=== PATIENT | female | born 1945 | race Caucasian/White ===

== ENCOUNTER 2018-02-25 21:22 | Observation (INO) | payer MEDICARE, SELFPAY ==
[2018-02-25] VITALS (7 sets, daily range): BP systolic 100–147; BP diastolic 54–102; PULSE 88–120; RESP 16–20; TEMP 36.4; O2SAT 96–98; BMI 41.1
--- NOTE | 2018-02-25 21:45 | RAD_ITS ---
XR Chest 1 View INDICATION: palpitations, SOB COMPARISON: November 04, 2017 TECHNIQUE: Frontal view of the chest FINDINGS: Mild bibasilar atelectasis are seen, the lungs appear otherwise clear. Heart size is mildly enlarged, stable. Pulmonary vascularity is within normal limits. Osseous structures demonstrate degenerative changes at the shoulders and thoracic spine. RAD/Chest 1 View (Portable) IMPRESSION: Stable mild cardiomegaly. Bibasilar subsegmental atelectasis. at 2215 Reported and signed by: Nehal Thomas MD Electronically Signed: Nehal Thomas MD at 22:13 EDT Tel , Service support ,
--- NOTE | 2018-02-25 21:45 | EKG12_ITS ---
Test Reason : SOB Blood Pressure : / mmHG Vent. Rate : 139 BPM Atrial Rate : 125 BPM P-R Int : 000 ms QRS Dur : 092 ms QT Int : 290 ms P-R-T Axes : 000 -10 247 degrees QTc Int : 441 ms Atrial fibrillation Nonspecific ST and T wave abnormality Abnormal ECG Confirmed by CEDRIC MORELAND, HARVINDER ([id number]), newspaper managing editor BRIAN COOK ([id number]) on 02/28/2018 2:31:30 PM Referred By: ESTHER Confirmed By:HARVINDER STEELE MD
--- NOTE | 2018-02-25 21:46 | ED.VISSUMM ---
- ER Visit Summary Date of Service: 02/25/18 Chief Complaint: Palpitations History of Present Illness: The patient is a 72 F palpitations starting 2 days ago. States has chronic shortness of breath, however symptoms did worsen with this. No lightheaded symptoms. No cough. No chest pains. Patient taken off hydrochlorothiazide 6 days ago by PCP due to leg cramping. Continued on her lisinopril. She is on thyroid medications. no further complaints. Physical Examination: General: Alert and oriented ?3, no acute distress HEENT: Normocephalic, atraumatic. Moist mucosa membranes Neck: supple, nontender. Cardiovascular: Irregular tachycardic rhythm, no murmurs Respiratory: Normal breath sounds, symmetric, no distress Abdomen: Soft, nontender, nondistended Extremities: Nontender, no edema, pulses intact ?4 Neuro: no focal neurological deficits. Test Results: EKG: Atrial fibrillation rate of 139, no ST changes. T-wave inversion in leads III. Potassium 4.2. Hemoglobin 16. Troponin less than 0.02. Chest x-ray negative. Emergency Department Course and Treatment: Reevaluation patient heart rate would go as high as 160s. A. fib with RVR on the monitor. EKG confirms this. Patient given 10 mg IV Cardizem, heart rate did go down the 80s and 90s. Labs and troponin negative. Chest x-ray negative. She is dose with Cardizem 60 mg p.o. Monitor blood pressure was stable. Reevaluation heart rate will be 90s-110s. Chads 2 score is a 2. Discussed with patient possible recommendations of anticoagulations. States her significant other had bad side effects with bleeding secondary to Xarelto. She does not follow cardiology. Currently hospitalist is on page for discussion for admission for workup. Treatment Plan: [] Disposition: Admission Impression: 1. Atrial fibrillation with RVR This note was generated with Samplesaint dictation software. It may contain incorrect words, spelling, and punctuation that were not noted in review of the chart prior to signing ED Disposition - Plan for ED Patient: Disposition: Acute Care Hospital [facility] Chief Complaint: Shortness of Breath Diagnosis: Atrial fibrillation with RVR Referrals: Carlos Manuel Artis III, MD [Primary Care Provider] -
[2018-02-25] MEDS: dilTIAZem 25 MG/5 ML Vial 10 MG IV BOLUS (21:48)
[2018-02-25] MEDS: 0.9% Normal Saline 1,000 ML 150 ML IV (21:51)
[2018-02-25 22:01] LABS: Absolute Neutrophil Count 4.7 X10^3/uL (2.0-7.7); Basophil# 0.01 X10^3/uL; Basophil% 0.1 % (0-1); Eosinophil# 0.07 X10^3/uL; Hematocrit 48.2 % (37-47); Hemoglobin 16.1 g/dl (12.0-15.0); Lymphocyte % 21.7 % (19-41); Mean Corp Hgb Conc 33.4 g/gl (32-36); Mean Corpuscular Volume 92.7 fL (81-99); Mean Platelet Vol. 10.9 fl (6.2-12.0); Monocyte# 0.62 X10^3/uL; Neutrophil # 4.71 X10^3/uL (2.7-7.7); Neutrophil % 68.2 % (47-70); Platelet Count 252 K/mm3 (150-450); RBC Distribution Width CV 13.6 % (11.6-14.6); RBC Distribution Width SD 44.7 fl (35.1-43.9); White Blood Count 6.9 K/mm3 (4.4-11.0)
[2018-02-25 22:02] LABS: POSITIVE COUNT NO; POSITIVE DIFFERENTIAL NO; POSITIVE MORPHOLOGY NO
[2018-02-25 22:18] LABS: Anion Gap 7 (5-15); BUN 22 mg/dL (7-18); BUN/Creat Ratio 25.6 RATIO (10-20); Calcium,Total 11.5 mg/dL (8.5-10.1); Chloride 112 mmol/L (98-107); Creatinine, Serum 0.86 mg/dL (0.55-1.02); EST Glomerular Filtration Rate 69 mL/min (>60); Est Glom Filt Rate - Afr Amer 83 mL/min (>60); Estimated Creatinine Clearance 51.64 ml/min; Glucose 167 mg/dL (74-106); Potassium 4.2 mmol/L (3.5-5.1); Sodium Level 145 mmol/L (136-145)
[2018-02-25] MEDS: dilTIAZem 60 MG CAP.SR.12H PO (22:47)
--- NOTE | 2018-02-25 23:25 | PCM.HP.STD ---
Problem List (1) Atrial fibrillation with RVR Status: Acute (2) Hypothyroidism Status: Chronic Qualifiers: Hypothyroidism type: unspecified Qualified Code(s): E03.9 - Hypothyroidism, unspecified (3) Diabetes mellitus type II, controlled Status: Chronic Qualifiers: Diabetes mellitus shoe folder insulin use: without usp use Diabetes mellitus complication status: without complication Qualified Code(s): E11.9 - Type 2 diabetes mellitus without complications (4) Morbid obesity with BMI of 40.0-44.9, adult Status: Chronic (5) HTN (hypertension) Status: Chronic Qualifiers: Hypertension type: essential hypertension Qualified Code(s): I10 - Essential (primary) hypertension History of Present Illness Date of Admission: 02/25/18 Chief Complaint: Palpitations, Dyspnea The patient is a 72 y/o F w/ PMHx: Morbid Obesity, Diabetes mellitus type II Diet Controlled, Hypothyroidism, HTN who presents to the [facility] ED on 02/25/18 with onset of palpitations and heart racing with worsened dyspnea sensation ?2 days. Per history patient was recently taken off her hydrochlorothiazide approximately 1 week prior per her PCP secondary to ongoing leg cramping but maintain on lisinopril for newly diagnosed hypertension this past October. Patient does admit to similar sensations in the past but this was never evaluated and there is a possibility that she has been in paroxysmal atrial fibrillation prior. In the ED work-up included T 97.6, heart rate 106-120, BP 117/54, respiratory rate 20, 96% on room air, unremarkable CBC, BMP with glucose 167, calcium 11.5, BUN/creatinine 22/0.86, troponin less than 0.02, chest x-ray with no acute findings, EKG with atrial fibrillation with RVR. In the emergency room patient was administered normal saline, Cardizem 10 mg IV bolus ?1 and oral 60 mg p.o. ?1. Past Medical History Past Medical History (Chronic Problems): Chronic Problems HTN (hypertension) (Chronic) Hypothyroidism (Chronic) Diabetes mellitus type II, controlled (Chronic) Morbid obesity with BMI of 40.0-44.9, adult (Chronic) Allergies Penicillins Allergy (Verified 02/25/18 21:26) Unknown inhalers Adverse Reaction (Uncoded 02/25/18 21:26) Unknown knee injections Adverse Reaction (Uncoded 02/25/18 21:26) Unknown Home Medications: Ambulatory Orders Medication Instructions Recorded Cholecalciferol (Vitamin D3) 1,000 unit PO QHS 11/04/17 [Vitamin D3] Cinnamon Bark [Cinnamon] 500 mg PO DAILY 11/04/17 Levothyroxine [Synthroid] 125 mcg PO DAILY 11/04/17 Red Yeast Rice 600 mg PO QHS 11/04/17 Lisinopril [Zestril] 10 mg PO DAILY 02/25/18 Surgical History: - - x 2. 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 Review of Systems Constitutional: Denies: Chills, Fever, Weight Change HEENT: Denies: Head Aches, Sinus Congestion, Sinus Drainage Cardiovascular: Reports: Palpitations. Denies: Chest Pain Respiratory: Reports: Shortness of Breath, Shortness of breath at rest, Shortness of breath upon exertion. Denies: Cough, Sputum production Gastrointestinal: Denies: Abdominal Pain, Nausea, Vomiting Genitourinary: Denies: Dysuria Musculoskeletal: Reports: Joint Pain. Denies: Joint Tenderness Skin: Reports: Skin Changes. Denies: Rash, Wounds Neurological: Denies: Numbness, Tingling, Focal weakness Psychiatric: Denies: Anxiety, Depression, Homicidal Ideations, Suicidal Ideations Hematologic/ Lymphatic: Denies: Easy Bruising, Easy Bleeding VTE Information - Inpt Only VTE Present on Admission: No VTE Mechan Device Prophylaxis: SCD's VTE Pharm Prophylaxis ordered?: Yes Patient Problems: Active and Suspected Problems Atrial fibrillation with RVR (Acute) Atrial fibrillation with RVR (Acute) Subjective: Seated upright in the ED bed, NAD, notes feeling improved. Objective: Physical Examination: General: awake, alert, oriented x 3 and cooperative, seated upright in the ED bed in no apparent distress. Skin: normal color, turgor, no icterus, cyanosis except BL LE chronic venous stasis skin changes. HEENT: AT/NC, EOMI, PERRLA, MMM, no carotid bruits or JVD noted. Lungs: CTA bilaterally, moderate effort, mild decrease BL bases, no rales, ronchi or wheezing. Heart: Irregular irregular; no gallop, rub audible. Abdomen: soft, morbidly obese, NTTP, ND, normal BS, no HSM. Extremities: no cyanosis, clubbing, or edema, see skin. Neurological: patient awake, alert, oriented x 3; cognitive function intact; pupils equally reactive to light and accomodation; cranial nerves II-XII grossly normal, moving all 4 extremities, no focal deficits, strength mildly globally decreased. Psychiatric: affect appears intermittently mildly anxious. When talking about medication additions she has increase in her heart rate. No acute evidence of depression. She notes did does have issues with anxiety. - Physical Exam Vital Signs Temp Pulse Resp BP Pulse Ox 97.6 F L 120 H 17 147/95 H 97 02/25/18 21:24 02/25/18 23:07 02/25/18 23:07 02/25/18 23:07 02/25/18 23:07 Oxygen Delivery Method Room Air Weight: 247 lb Body Mass Index (BMI) 41.1 Laboratory Tests Past 24 Hrs 02/25/18 02/25/18 21:50 21:50 WBC 6.9 RBC 5.20 Hgb 16.1 H Hct 48.2 H MCV 92.7 MCH 31.0 MCHC 33.4 RDW 13.6 RDW Differential 44.7 H Plt Count 252 MPV 10.9 Immature Gran % (Auto) 0.000 Neut % (Auto) 68.2 Lymph % (Auto) 21.7 [place] % (Auto) 9.0 Eos % (Auto) 1.0 Baso % (Auto) 0.1 Absolute Neuts (auto) 4.7 Absolute Lymphs (auto) 1.50 Total Counted Not Reportable Sodium 145 Potassium 4.2 Chloride 112 H Carbon Dioxide 26.0 Anion Gap 7 BUN 22 H Creatinine 0.86 Estim Creat Clear Calc 51.64 Est GFR (MDRD) Af Amer 83 Est GFR (MDRD) Non-Af 69 BUN/Creatinine Ratio 25.6 H Glucose 167 H Calcium 11.5 H Troponin I < 0.02 Assessment/Plan Active and Suspected Problems Atrial fibrillation with RVR (Acute) Atrial fibrillation with RVR (Acute) The patient is a 72 y/o F w/ PMHx: Morbid Obesity, Diabetes mellitus type II Diet Controlled, Hypothyroidism, HTN who presents to the [facility] ED on 02/25/18 with onset of palpitations and heart racing with worsened dyspnea sensation ?2 days. Per history patient was recently taken off her hydrochlorothiazide approximately 1 week prior per her PCP secondary to ongoing leg cramping but maintain on lisinopril for newly diagnosed hypertension this past October. (1) New onset, Paroxsymal atrial fibrillation: EKG in ED w/ atrial fibrillation w/ RVR. Patient administered IV cardizem and oral cardizem in ED. Will admit to PCU, maintain on telemetry, obtain cardiac enzyme serial set, obtain magnesium level, obtain ECHO, obtain TSH level. CHADs scoring appropriate for anticoagulation but refused start on anticoagulants secondary to a history of her spouse having bleeding, severe on anticoagulation. She is willing to take daily ASA only, will initiate. Given rate controlled following current IV and oral regimen in the ED, will given an additional cardizem 10 mg IV x 1 and attempt transition to only oral regimen. She does admit to increased caffeine consumption which has been advised against. (2) Hypertension: Continue on oral cardizem regimen, monitor BP and if needed restart home lisinopril, PRN hydralazine. (3) Diabetes mellitus type II: Not on regimen, diet controlled, maintain on ADA diet, accu checks w/ ISS. HgbA1c 6.7% 11/04/17. (4) Hypothyroidism: Continue home synthroid regimen, TSH/FT4 pending. (5) Morbid Obesity: Weight loss and lifestyle changes encouraged, nutrition consulted. (6) DVT Prophylaxis: SCDs, lovenox. Code Visit OBSV E&M: 92713 Initial observation care L3
--- NOTE | 2018-02-25 23:36 | HP.PCM_ITS ---
Problem List (1) Atrial fibrillation with RVR Status: Acute (2) Hypothyroidism Status: Chronic Qualifiers: Hypothyroidism type: unspecified Qualified Code(s): E03.9 - Hypothyroidism , unspecified (3) Diabetes mellitus type II, controlled Status: Chronic Qualifiers: Diabetes mellitus prison insulin use: without steel erector apprentice use Diabetes mellitus complication status: without complication Qualified Code(s): E11.9 - Type 2 diabetes mellitus without complications (4) Morbid obesity with BMI of 40.0-44.9, adult Status: Chronic (5) HTN (hypertension) Status: Chronic Qualifiers: Hypertension type: essential hypertension Qualified Code(s): I10 - Essential (primary) hypertension History of Present Illness Date of Admission: 02/25/18 Chief Complaint: Palpitations, Dyspnea The patient is a 72 y/o F w/ PMHx: Morbid Obesity, Diabetes mellitus type II Diet Controlled, Hypothyroidism, HTN who presents to the [facility] ED on 02/25/18 with onset of palpitations and heart racing with worsened dyspnea sensation ?2 days. Per history patient was recently taken off her hydrochlorothiazide approximately 1 week prior per her PCP secondary to ongoing leg cramping but maintain on lisinopril for newly diagnosed hypertension this past October. Patient does admit to similar sensations in the past but this was never evaluated and there is a possibility that she has been in paroxysmal atrial fibrillation prior. In the ED work-up included T 97.6, heart rate 106-120, BP 117/54, respiratory rate 20, 96% on room air, unremarkable CBC, BMP with glucose 167, calcium 11.5, BUN/creatinine 22/0.86, troponin less than 0.02, chest x-ray with no acute findings, EKG with atrial fibrillation with RVR. In the emergency room patient was administered normal saline, Cardizem 10 mg IV bolus ?1 and oral 60 mg p.o. ?1. Past Medical History Past Medical History (Chronic Problems): Chronic Problems HTN (hypertension) (Chronic) Hypothyroidism (Chronic) Diabetes mellitus type II, controlled (Chronic) Morbid obesity with BMI of 40.0-44.9, adult (Chronic) Allergies Penicillins Allergy (Verified 02/25/18 21:26) Unknown inhalers Adverse Reaction (Uncoded 02/25/18 21:26) Unknown knee injections Adverse Reaction (Uncoded 02/25/18 21:26) Unknown Home Medications: Ambulatory Orders Medication Instructions Recorded Cholecalciferol (Vitamin D3) 1,000 unit PO QHS 11/04/17 [Vitamin D3] Cinnamon Bark [Cinnamon] 500 mg PO DAILY 11/04/17 Levothyroxine [Synthroid] 125 mcg PO DAILY 11/04/17 Red Yeast Rice 600 mg PO QHS 11/04/17 Lisinopril [Zestril] 10 mg PO DAILY 02/25/18 Surgical History: - - x 2. 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 Review of Systems Constitutional: Denies: Chills, Fever, Weight Change HEENT: Denies: Head Aches, Sinus Congestion, Sinus Drainage Cardiovascular: Reports: Palpitations. Denies: Chest Pain Respiratory: Reports: Shortness of Breath, Shortness of breath at rest, Shortness of breath upon exertion. Denies: Cough, Sputum production Gastrointestinal: Denies: Abdominal Pain, Nausea, Vomiting Genitourinary: Denies: Dysuria Musculoskeletal: Reports: Joint Pain. Denies: Joint Tenderness Skin: Reports: Skin Changes. Denies: Rash, Wounds Neurological: Denies: Numbness, Tingling, Focal weakness Psychiatric: Denies: Anxiety, Depression, Homicidal Ideations, Suicidal Ideations Hematologic/ Lymphatic: Denies: Easy Bruising, Easy Bleeding VTE Information - Inpt Only VTE Present on Admission: No VTE Mechan Device Prophylaxis: SCD's VTE Pharm Prophylaxis ordered?: Yes Patient Problems: Active and Suspected Problems Atrial fibrillation with RVR (Acute) Atrial fibrillation with RVR (Acute) Subjective: Seated upright in the ED bed, NAD, notes feeling improved. Objective: Physical Examination: General: awake, alert, oriented x 3 and cooperative, seated upright in the ED bed in no apparent distress. Skin: normal color, turgor, no icterus, cyanosis except BL LE chronic venous stasis skin changes. HEENT: AT/NC, EOMI, PERRLA, MMM, no carotid bruits or JVD noted. Lungs: CTA bilaterally, moderate effort, mild decrease BL bases, no rales, ronchi or wheezing. Heart: Irregular irregular; no gallop, rub audible. Abdomen: soft, morbidly obese, NTTP, ND, normal BS, no HSM. Extremities: no cyanosis, clubbing, or edema, see skin. Neurological: patient awake, alert, oriented x 3; cognitive function intact; pupils equally reactive to light and accomodation; cranial nerves II-XII grossly normal, moving all 4 extremities, no focal deficits, strength mildly globally decreased. Psychiatric: affect appears intermittently mildly anxious. When talking about medication additions she has increase in her heart rate. No acute evidence of depression. She notes did does have issues with anxiety. - Physical Exam Vital Signs Temp Pulse Resp BP Pulse Ox 97.6 F L 120 H 17 147/95 H 97 02/25/18 21:24 02/25/18 23:07 02/25/18 23:07 02/25/18 23:07 02/25/18 23:07 Oxygen Delivery Method Room Air Weight: 247 lb Body Mass Index (BMI) 41.1 Laboratory Tests Past 24 Hrs 02/25/18 02/25/18 21:50 21:50 WBC 6.9 RBC 5.20 Hgb 16.1 H Hct 48.2 H MCV 92.7 MCH 31.0 MCHC 33.4 RDW 13.6 RDW Differential 44.7 H Plt Count 252 MPV 10.9 Immature Gran % (Auto) 0.000 Neut % (Auto) 68.2 Lymph % (Auto) 21.7 [place] % (Auto) 9.0 Eos % (Auto) 1.0 Baso % (Auto) 0.1 Absolute Neuts (auto) 4.7 Absolute Lymphs (auto) 1.50 Total Counted Not Reportable Sodium 145 Potassium 4.2 Chloride 112 H Carbon Dioxide 26.0 Anion Gap 7 BUN 22 H Creatinine 0.86 Estim Creat Clear Calc 51.64 Est GFR (MDRD) Af Amer 83 Est GFR (MDRD) Non-Af 69 BUN/Creatinine Ratio 25.6 H Glucose 167 H Calcium 11.5 H Troponin I < 0.02 Assessment/Plan Active and Suspected Problems Atrial fibrillation with RVR (Acute) Atrial fibrillation with RVR (Acute) The patient is a 72 y/o F w/ PMHx: Morbid Obesity, Diabetes mellitus type II Diet Controlled, Hypothyroidism, HTN who presents to the [facility] ED on 02/25/18 with onset of palpitations and heart racing with worsened dyspnea sensation ?2 days. Per history patient was recently taken off her hydrochlorothiazide approximately 1 week prior per her PCP secondary to ongoing leg cramping but maintain on lisinopril for newly diagnosed hypertension this past October. (1) New onset, Paroxsymal atrial fibrillation: EKG in ED w/ atrial fibrillation w/ RVR. Patient administered IV cardizem and oral cardizem in ED. Will admit to PCU, maintain on telemetry, obtain cardiac enzyme serial set, obtain magnesium level, obtain ECHO, obtain TSH level. CHADs scoring appropriate for anticoagulation but refused start on anticoagulants secondary to a history of her spouse having bleeding, severe on anticoagulation. She is willing to take daily ASA only, will initiate. Given rate controlled following current IV and oral regimen in the ED, will given an additional cardizem 10 mg IV x 1 and attempt transition to only oral regimen. She does admit to increased caffeine consumption which has been advised against. (2) Hypertension: Continue on oral cardizem regimen, monitor BP and if needed restart home lisinopril, PRN hydralazine. (3) Diabetes mellitus type II: Not on regimen, diet controlled, maintain on ADA diet, accu checks w/ ISS. HgbA1c 6.7% 11/04/17. (4) Hypothyroidism: Continue home synthroid regimen, TSH/FT4 pending. (5) Morbid Obesity: Weight loss and lifestyle changes encouraged, nutrition consulted. (6) DVT Prophylaxis: SCDs, lovenox. Code Visit OBSV E&M: 80610 Initial observation care L3
[2018-02-26] VITALS (18 sets, daily range): BP systolic 112–193; BP diastolic 59–107; PULSE 34–120; RESP 16–18; TEMP 36.3–36.6; O2SAT 93–98; BMI 39.5
[2018-02-26] MEDS: dilTIAZem 25 MG/5 ML Vial 10 MG IV BOLUS (01:18)
[2018-02-26 01:50] LABS: Magnesium 2.2 mg/dL (1.6-2.6); T4 Free Direct 1.45 ng/dL (0.76-1.46); Thyroid Stim Hormone (TSH) 0.15 uIU/mL (0.358-3.74)
--- NOTE | 2018-02-26 05:55 | ECHOD_ITS ---
Reason For Study: AFIB Procedure This was a 2D Doppler, Color Flow transthoracic echocardiogram. Exam performed portable in patient room. Left Ventricle Normal LV size. Moderate concentric left ventricular hypertrophy. Left ventricular systolic function is normal. The estimated ejection fraction is 65 %. No regional wall motion abnormalities noted. Right Ventricle Normal RV size. Normal systolic function. Atria Normal left atrium. Normal right atrium. Mitral Valve Normal mitral valve. Tricuspid Valve Normal tricuspid valve. Mild (1+) tricuspid valve insufficiency. Pulmonary artery systolic pressure is 33 mmHg. Aortic Valve Normal aortic valve. Trisinus/trileaflet aortic valve. Pulmonic Valve The pulmonic valve is not well visualized. Great Vessels Normal aortic root. The pulmonary artery is normal size. Pericardium/Pleural No pericardial effusion. MMode/2D Measurements & Calculations LVIDd: 3.8 cm IVSd: 1.4 cm Ao root diam: 3.3 cm LVIDs: 2.6 cm LVPWd: 1.5 cm RVDd: 2.8 cm FS: 33.0 % LAV(MOD-bp): 45.6 ml LA A4 area: 19.3 cm2 RA A4 area: 15.5 cm2 LAV(MOD-bp) Indexed: 21.1 ml/m2 LAV(MOD-sp2): 35.0 ml LAV(MOD-sp4): 53.2 ml Doppler Measurements & Calculations MV E max agus: 130.8 cm/sec Ao V2 max: 160.4 cm/sec LV V1 max: 101.9 cm/sec Ao max P.4 mmHg LV V1 max P.2 mmHg PA V2 max: 124.6 cm/sec TR max agus: 270.3 cm/sec TR max P.3 mmHg Interpretation Summary Normal LV size. Moderate concentric left ventricular hypertrophy. Left ventricular systolic function is normal. The estimated ejection fraction is 65 %. Mild (1+) tricuspid valve insufficiency. Pulmonary artery systolic pressure is 33 mmHg. Ordering Physician: Janey Guerra Referring Physician: TI HUDDLESTON Performed By: Deborah Pinedo RDCS
[2018-02-26] MEDS: Levothyroxine 125 MCG Tablet PO (05:56)
[2018-02-26] MEDS: dilTIAZem CD 180 MG Capsule PO ×2 (05:56→09:38)
[2018-02-26 06:33] LABS: Hemoglobin 14.5 g/dl (12.0-15.0); Mean Corp Hgb Conc 33.7 g/gl (32-36); Mean Corpuscular Hgb 31.7 pg (27.0-32.0); Mean Corpuscular Volume 94.1 fL (81-99); Mean Platelet Vol. 10.9 fl (6.2-12.0); Platelet Count 202 K/mm3 (150-450); RBC Distribution Width CV 13.5 % (11.6-14.6); RBC Distribution Width SD 44.5 fl (35.1-43.9); Red Blood Count 4.57 M/mm3 (4.2-5.4); White Blood Count 6.5 K/mm3 (4.4-11.0)
[2018-02-26 06:37] LABS: Scan Indicated on CBC? Y/N NO
[2018-02-26 07:01] LABS: Bedside Glucose 115 mg/dL (70-110)
[2018-02-26 08:09] LABS: Anion Gap 7 (5-15); BUN 18 mg/dL (7-18); BUN/Creat Ratio 26.5 RATIO (10-20); Calcium,Total 10.3 mg/dL (8.5-10.1); Chloride 115 mmol/L (98-107); Cholesterol 171 mg/dL (200); Creatinine, Serum 0.68 mg/dL (0.55-1.02); EST Glomerular Filtration Rate 90 mL/min (>60); Est Glom Filt Rate - Afr Amer 109 mL/min (>60); Glucose 122 mg/dL (74-106); High Density Lipoprotein 41 mg/dL; Potassium 3.9 mmol/L (3.5-5.1); Sodium Level 147 mmol/L (136-145); Triglycerides 136 mg/dL; Very Low Density Lipoprotein 27 mg/dL (5-40)
[2018-02-26] MEDS: Aspirin 325 MG Tablet PO (09:38)
[2018-02-26] MEDS: Enoxaparin 40 MG/0.4 ML Syringe SC (09:38)
[2018-02-26 11:20] LABS: Bedside Glucose 148 mg/dL (70-110)
--- NOTE | 2018-02-26 13:24 | PCM.PROGNOTE ---
Patient Problems: Active and Suspected Problems Atrial fibrillation with RVR (Acute) Atrial fibrillation with RVR (Acute) Subjective: Patient seen and examined. Denies shortness of breath, palpitations, chest pain. Denies dizziness, lightheadedness. States she has felt similar sensations prior to this admission but never sought medical attention. She states they lasted at most 4 hours at a time. She is willing to begin anticoagulation. Denies other complaints. - Physical Exam General: Alert, Oriented x3, Cooperative, No apparent distress HEENT: Atraumatic, PERRLA, EOMI, Normocephalic Neck: Supple, No JVD, Negative Carotid Bruits Lungs: Clear to auscultation, Normal air movement Cardiovascular: Normal S1, Normal S2, No murmurs, - - A.Fib, rate controlled. Abdomen: Bowel Sounds Present, Soft, Non Tender, Non-Distended Extremities: No clubbing, No cyanosis, No edema, Capillary Refill Less than 3 Seconds Skin: No rashes, - - Chronic skin changes bilateral lower extremities Musculoskeletal: No Tenderness to Palpation of Joints or Extremities Neurological: Cranial nerves II-XII grossly intact, Neuro grossly intact Psych/Mental Status: Normal Affect, Appropriate Vital Signs Temp Pulse Resp BP Pulse Ox 97.9 F 95 18 130/67 H 94 02/26/18 09:35 02/26/18 10:58 02/26/18 09:35 02/26/18 09:35 02/26/18 09:35 Oxygen Delivery Method Room Air Weight: 111.1 kg Body Mass Index (BMI) 39.5 Intake and Output for Last 24 Hours 02/24/18 02/25/18 02/26/18 23:59 23:59 23:59 Intake Total 280 / 280 Balance 280 / 280 Laboratory Tests Past 24 Hrs 02/26/18 02/26/18 02/26/18 01:05 01:05 06:06 WBC 6.5 RBC 4.57 Hgb 14.5 Hct 43.0 MCV 94.1 MCH 31.7 MCHC 33.7 RDW 13.5 RDW Differential 44.5 H Plt Count 202 MPV 10.9 Sodium Potassium Chloride Carbon Dioxide Anion Gap BUN Creatinine Estim Creat Clear Calc Est GFR (MDRD) Af Amer Est GFR (MDRD) Non-Af BUN/Creatinine Ratio Glucose Calcium Ionized Calcium Magnesium 2.2 Troponin I < 0.02 Triglycerides Cholesterol LDL Cholesterol VLDL Cholesterol HDL Cholesterol TSH 0.15 L Free T4 1.45 02/26/18 02/26/18 02/26/18 06:06 06:06 06:06 WBC RBC Hgb Hct MCV MCH MCHC RDW RDW Differential Plt Count MPV Sodium 147 H Potassium 3.9 Chloride 115 H Carbon Dioxide 25.0 Anion Gap 7 BUN 18 Creatinine 0.68 Estim Creat Clear Calc 46.20 Est GFR (MDRD) Af Amer 109 Est GFR (MDRD) Non-Af 90 BUN/Creatinine Ratio 26.5 H Glucose 122 H Calcium 10.3 H Ionized Calcium Pending Magnesium Troponin I < 0.02 Triglycerides 136 Cholesterol 171 LDL Cholesterol 103 VLDL Cholesterol 27 HDL Cholesterol 41 TSH Free T4 POC Glucose 02/26/18 02/26/18 11:09 06:57 POC Glucose 148 H 115 H Medical Necessity - Tobacco Use Smoking Status: Never smoker Tobacco Use: Non-smoker Assessment/Plan Active and Suspected Problems Atrial fibrillation with RVR (Acute) Atrial fibrillation with RVR (Acute) Patient is a 72-year-old female admitted 02/25/18 due to palpitations, dyspnea. She has a past medical history of type 2 diabetes mellitus, hypothyroidism, hypertension, morbid obesity, hyperparathyroidism. 1. New onset paroxysmal atrial fibrillation-EKG in ER atrial fibrillation with RVR. Patient received IV Cardizem followed by oral Cardizem. Troponin negative. Echocardiogram pending. Patient remains atrial fibrillation with controlled rate. Anticoagulation options were discussed with patient. She will be started on Eliquis 5 mg twice daily. Continue Cardizem 180 mg daily. Patient has been followed with Dr. Galvan. She would like to follow-up with Dr. Galvan as well. Will obtain consult. 2. Hypertension-stable, continue current regimen. 3. Type 2 diabetes mellitus-not on home regimen. ADA diet. Accu-Cheks before meals at bedtime with sliding scale insulin. Hemoglobin A1c 6.7% October 2017. Defer further management to PCP. 4. Hypothyroidism-continue Synthroid regimen. TSH 0.15. T4 1.45. 5. Morbid obesity-encouraged lifestyle dietary modifications. Nutrition consult. DVT prophylaxis-Angela SCDs This patient was seen by NOAH Carty under the supervision of Dr. Gusman.
[2018-02-26 16:36] LABS: Bedside Glucose 136 mg/dL (70-110)
[2018-02-26] MEDS: 0.9% NaCl Peripheral Flush Adult/Peds IV (22:21)
[2018-02-26] MEDS: Famotidine 20 MG Tablet PO (22:22)
[2018-02-26] MEDS: APIXABAN 5 MG TABLET PO (22:22)
[2018-02-26] MEDS: hydrALAZINE 20 MG/ML Vial 10 MG IV (22:27)
[2018-02-26 22:41] LABS: Bedside Glucose 119 mg/dL (70-110)
[2018-02-27] VITALS (10 sets, daily range): BP systolic 106–161; BP diastolic 68–93; PULSE 84–115; RESP 14–18; TEMP 36.3–36.6; O2SAT 95–98
[2018-02-27] MEDS: Metoprolol Tartrate 5 MG/5 ML Vial IV (03:54)
[2018-02-27] MEDS: Levothyroxine 125 MCG Tablet PO (05:29)
[2018-02-27 07:06] LABS: Bedside Glucose 136 mg/dL (70-110)
--- NOTE | 2018-02-27 09:09 | PCM.CONS.C ---
Reason for Consult Date of Consultation: 02/27/18 Reason for Consultation: Fast heart rate. History of Present Illness: The patient is a 72 year old F with a history of recently diagnosed hypertension obesity who says that she has been taking her blood pressure measurements at home. She realized over the last few weeks that her heart rate monitor was saying that her heart rate was irregular. She was recently changed from lisinopril hydrochlorothiazide to lisinopril and her blood pressure medications. Due to her concern of the high heart rate she presented to the emergency room was evaluated was noted to be in atrial fibrillation with a rapid ventricular response rate was administered intravenous Cardizem and then admitted to the telemetry care unit. She was started on Cardizem as well as Eliquis and appears to have done well. Cardiology was called this morning for further evaluation and management. She denies any chest pain no shortness of breath no paroxysmal nocturnal dyspnea she has had pedal edema as well as discoloration of her lower extremities. [] Past Medical History Allergies/Adverse Reactions: Allergies Penicillins Allergy (Verified 02/25/18 21:26) Unknown inhalers Adverse Reaction (Uncoded 02/25/18 21:26) Unknown knee injections Adverse Reaction (Uncoded 02/25/18 21:26) Unknown Home Medications: Ambulatory Orders Medication Instructions Recorded Cholecalciferol (Vitamin D3) 1,000 unit PO QHS 11/04/17 [Vitamin D3] Cinnamon Bark [Cinnamon] 500 mg PO DAILY 11/04/17 Levothyroxine [Synthroid] 125 mcg PO DAILY 11/04/17 Red Yeast Rice 600 mg PO QHS 11/04/17 Lisinopril [Zestril] 10 mg PO DAILY 02/25/18 Aspirin 650 mg PO DAILY@0800 02/26/18 Past Medical History (Chronic Problems): Chronic Problems HTN (hypertension) (Chronic) Hypothyroidism (Chronic) Diabetes mellitus type II, controlled (Chronic) Morbid obesity with BMI of 40.0-44.9, adult (Chronic) Surgical History: - - x 2. Psychiatric History: No pertinent psych hx [employer] History: No pertinent [employer]OR history - *Family History Maternal History Items: No pertinent history Paternal History Items: Cancer - Father w/ Bone cancer. Lives: Spouse/ Significant Other Smoking Status: Never smoker Tobacco Use: Non-smoker Alcohol: Rare Drugs: None Review of Systems - Review of Systems General: Denies: Fever, Night Sweats, Fatigue Cardiovascular: Reports: Peripheral Edema, Palpitations. Denies: Chest Discomfort, Shortness of Breath, Orthopnea, PND, Lightheadedness, Dizziness, Near Syncope, Syncope Respiratory: Denies: Cough, Sputum Production, Hemoptysis Gastrointestinal: Denies: Hematemesis, Hematochezia, Melena Genitourinary: Denies: Dysuria, Hematuria Skin: Denies: Rash Neurological: Denies: Dizziness Subjectve: Pleasant lady in no apparent distress. Objective: Vital Signs Temp Pulse Resp BP Pulse Ox 97.6 F L 106 H 18 130/93 H 98 02/27/18 03:15 02/27/18 03:54 02/27/18 03:15 02/27/18 05:27 02/27/18 08:40 Oxygen Delivery Method Room Air Weight: 244 lb 14.937 oz Body Mass Index (BMI) 39.5 Intake and Output for Last 24 Hours 02/25/18 02/26/18 02/27/18 23:59 23:59 23:59 Intake Total 520 / 520 Balance 520 / 520 General: Awake, Alert, Oriented x 3 HEENT: PERRL, EOMI, Sclera Non Icteric Neck: Supple, Good ROM, No Lymph Node Enlargement Lungs: Clear to auscultation Cardiovascular: Irregular Rhythm, Normal S1, Normal S2, No Murmurs, No Rubs, No Gallops Vascular: No Carotid Bruits, Normal Femoral Pulses, Normal Radial Pulses, Normal Dorsalis Pedal Pulse, Normal Posterior Tibial Pulses Abdomen: Bowel Sounds Present, Soft, Non Tender, No HSM, No Organomegaly Extremities: No Cyanosis, No Clubbing, No edema, Bilateral Edema +1, - - Venous varicosities noted. Neurological: No Focal Motor or Sensory Deficit Psych/Mental Status: Appropriate Rhythm: EKG: Atrial fibrillation with a rate of 139 bpm. Assessment/Plan 1. Atrial fibrillation-persistent. She presents with atrial for ablation the duration of which is unknown at this time she is relatively asymptomatic but her ventricular response rate is not controlled. Due to her risk factors with her age, female sex, hypertension to be prudent to anticoagulate her as we are doing with the Eliquis. Her weight should also be controlled with metoprolol 50 mg twice a day. An echocardiogram should be performed to assess her left ventricular function. She can have further workup of the above as an outpatient. If her heart rate is controlled later today she should be able to be followed up as an outpatient. 2. Hypertension. Her blood pressure appears to be elevated and she has been started on lisinopril. Hopefully the addition of the metoprolol would also help improve her blood pressure symptoms. I have discussed the above with her and she understands and agrees to go ahead with these medications. Thank you for allowing me to participate in the care of your patient. Please don't hesitate to call if any issues arise
[2018-02-27] MEDS: Metoprolol Tartrate 50 MG Tablet PO (10:25)
[2018-02-27] MEDS: APIXABAN 5 MG TABLET PO (10:26)
[2018-02-27 11:21] LABS: Bedside Glucose 122 mg/dL (70-110)
--- NOTE | 2018-02-27 11:37 | PCM.DC ---
- Discharge Diagnoses Current Active Problems: Current Active and Chronic Problems Atrial fibrillation with RVR (Acute) HTN (hypertension) (Chronic) Atrial fibrillation with RVR (Acute) You will use the following diet at home:: Cardiac Discharge Activity: Return to Normal Activity Call your doctor if you observe: Shortness of breath, Dizziness, Chest pain, Increased palpitations (irregular heartbeat) Allergies/Adverse Reactions: Allergies Penicillins Allergy (Verified 02/25/18 21:26) Unknown inhalers Adverse Reaction (Uncoded 02/25/18 21:26) Unknown knee injections Adverse Reaction (Uncoded 02/25/18 21:26) Unknown Medications to take at Discharge Cholecalciferol (Vitamin D3) [Vitamin D3] 1,000 unit PO QHS 11/04/17 Cinnamon Bark [Cinnamon] 500 mg PO DAILY 11/04/17 Levothyroxine [Synthroid] 125 mcg PO DAILY 11/04/17 Red Yeast Rice 600 mg PO QHS 11/04/17 Lisinopril [Zestril] 10 mg PO DAILY 02/25/18 Apixaban [Eliquis] 5 mg PO BID #60 tab 02/27/18 Metoprolol Tartrate [Lopressor (beta andre)] 50 mg PO BID #60 tab 02/27/18 The following prescriptions were given: Apixaban [Eliquis] 5 mg PO BID #60 tab Metoprolol Tartrate [Lopressor (beta andre)] 50 mg PO BID #60 tab Primary Care Physician: Carlos Manuel Artis III, MD [Primary Care Provider] - Please follow up with your Primary Care Physician in: 1 Week Please Follow Up With: Dheeraj Galvan MD When: 1-2 Weeks Proposed Discharge Date: 02/27/18
--- NOTE | 2018-02-27 11:51 | PCM.DC.SUM ---
<Nesha Lopez - Last Filed: 02/27/18 11:58> Discharge Date and Diagnosis Date of Admission: 02/25/18 Date of Discharge: 02/27/18 - Primary Discharge Diagnosis Active and Suspected Problems 1. New onset Atrial fibrillation with RVR - Secondary Discharge Diagnosis Chronic Problems HTN (hypertension) (Chronic) Hypothyroidism (Chronic) Diabetes mellitus type II, controlled (Chronic) Morbid obesity with BMI of 40.0-44.9, adult (Chronic) Hospital Course and Treatment Imaging Results: Diagnostic Data Chest X-Ray 02/25/18 21:45 IMPRESSION: Stable mild cardiomegaly. Bibasilar subsegmental atelectasis. at 2215 Reported and signed by: Nehal Thomas MD Electronically Signed: Nehal Thomas MD at 22:13 EDT Tel , Service support , Dr. De La Rosa- Cardiology Operations: None Procedures: 2-D Echocardiogram Summary of Care Provided: Patient is a 72-year-old female admitted 02/25/18 due to palpitations, dyspnea. She has a past medical history of type 2 diabetes mellitus, hypothyroidism, hypertension, morbid obesity, hyperparathyroidism. 1. New onset paroxysmal atrial fibrillation-EKG in ER atrial fibrillation with RVR. Patient received IV Cardizem followed by oral Cardizem. Troponin negative. Echocardiogram pending at discharge and will be followed by cardiology as outpatient. Patient remains atrial fibrillation with controlled rate. Anticoagulation options were discussed with patient. She will be discharged on Eliquis 5 mg twice daily. Cardiology consulted. Patient was switched from Cardizem to metoprolol 50 mg twice daily. Heart rate 91 at discharge. Patient will follow up with Dr. Galvan in 1-2 weeks. 2. Hypertension-stable, continue current regimen. 3. Type 2 diabetes mellitus-not on home regimen. Hemoglobin A1c 6.7% October 2017. Defer further management to PCP. 4. Hypothyroidism-continue Synthroid regimen. TSH 0.15. T4 1.45. 5. Morbid obesity-encouraged lifestyle dietary modifications. General: Alert, Oriented x3, Cooperative, No apparent distress HEENT: Atraumatic, PERRLA, EOMI, Normocephalic Neck: Supple, No JVD, Negative Carotid Bruits Lungs: Clear to auscultation, Normal air movement Cardiovascular: Normal S1, Normal S2, No murmurs, - - A.Fib, rate controlled. Abdomen: Bowel Sounds Present, Soft, Non Tender, Non-Distended Extremities: No clubbing, No cyanosis, No edema, Capillary Refill Less than 3 Seconds Skin: No rashes, - - Chronic skin changes bilateral lower extremities Musculoskeletal: No Tenderness to Palpation of Joints or Extremities Neurological: Cranial nerves II-XII grossly intact, Neuro grossly intact Psych/Mental Status: Normal Affect, Appropriate Patient seen and examined prior to discharge. Physical assessment as noted above. Patient stable for discharge home with further follow-up with primary care physician and cardiology. This patient was seen by NOAH Carty under the supervision of Dr. Williamson. Discharge Diet: Low fat/ Low Cholesterol Discharge Activity: Return to Normal Activity Call your doctor if you observe: Shortness of breath, Dizziness, Chest pain, Increased palpitations (irregular heartbeat) Home Medications: Medications to take at Discharge Cholecalciferol (Vitamin D3) [Vitamin D3] 1,000 unit PO QHS 11/04/17 Cinnamon Bark [Cinnamon] 500 mg PO DAILY 11/04/17 Levothyroxine [Synthroid] 125 mcg PO DAILY 11/04/17 Red Yeast Rice 600 mg PO QHS 11/04/17 Lisinopril [Zestril] 10 mg PO DAILY 02/25/18 Apixaban [Eliquis] 5 mg PO BID #60 tab 02/27/18 Metoprolol Tartrate [Lopressor (beta andre)] 50 mg PO BID #60 tab 02/27/18 Following Prescrptions Were Given to Patient: Apixaban [Eliquis] 5 mg PO BID #60 tab Metoprolol Tartrate [Lopressor (beta andre)] 50 mg PO BID #60 tab Primary Care Physician: Carlos Manuel Artis III, MD [Primary Care Provider] - Please follow up with your Primary Care Physician in: 1 Week Please Follow Up With: Dheeraj Galvan MD When: 1-2 Weeks Disposition: Home Minutes spent on discharge:: 35 Patient Condition:: Stable Medical Necessity - Tobacco Use Smoking Status: Never smoker Tobacco Use: Non-smoker Meaningful Use Info Meaningful Use Diagnoses (Choose all that apply): None applicable <Diana Williamson - Last Filed: 02/27/18 15:46> Discharge Date and Diagnosis - Secondary Discharge Diagnosis Chronic Problems HTN (hypertension) (Chronic) Hypothyroidism (Chronic) Diabetes mellitus type II, controlled (Chronic) Morbid obesity with BMI of 40.0-44.9, adult (Chronic) Hospital Course and Treatment Summary of Care Provided: The patient is a 72 year old F [] Code Visit OBSV E&M: 78604 Observation care discharge
--- NOTE | 2018-02-27 13:41 | CASEMGMT ---
Per Sherri VIDEO EDITING INTERN, pt to be sent home on Eliquis and e-scribed to [facility] retail pharmacy at this time. Call to [facility] retail pharmacy and per Maulik, muñiz will be $245.00 but $200.00 of that is deductible and $45.00 will be co-pay amount. Pt updated on all and 30 day free trial card tubed to pharmacy at this time. Pt voices understanding of all. Pt is still hesitant to take Eliquis but states she understands why she needs to take it. Estefania RN is at bedside and states they have been discussing this. Pt voices no further questions/concerns at this time and thanks this RN CM. Vinicio MADISON CM
== END 2018-02-27 11:38 | disposition home or self-care (01) ==
LOC: ED 23:26 → PCU 23:50
PROVIDERS: Internal Medicine; Admitting Provider Family Medicine; Emergency Provider Emergency Medicine; Family Provider Family Medicine; PCP Family Medicine; Visit Provider Internal Medicine
DX: I48.0 Paroxysmal atrial fibrillation (principal); E66.01 Morbid (severe) obesity due to excess calories; E03.9 Hypothyroidism, unspecified; E11.9 Type 2 diabetes mellitus without complications; I10 Essential (primary) hypertension; E21.3 Hyperparathyroidism, unspecified; Z79.899 Other long term (current) drug therapy; Z79.82 Long term (current) use of aspirin; Z68.39 Body mass index [BMI] 39.0-39.9, adult; Z71.3 Dietary counseling and surveillance
CPT/HCPCS: 36415; 71045; 80048; 80061; 82330; 82962; 83735; 84439; 84443; 84484; 85025; 85027; 93005; 93306; 96361; 96372; 96374; 96375; 96376; 97162; 97166; 97802; 99218; 99285; J7030; A4216; G0378

== ENCOUNTER → 2018-03-27 14:07 | Outpatient (CLI) | payer MEDICARE, SELFPAY ==
[2018-03-27 14:16] LABS: Mucous, Urine 0 SEEN /hpf (<or=2+)
[2018-03-27 15:13] LABS: Color, Urine Yellow (Yellow); Glucose, Dipstick Normal (Normal); Ketone-Dipstick Negative (Negative); Leukocyte Esterase-Dipstick 25 /ul (Negative); Nitrite-Dipstick Negative (Negative); Occult Blood-Urine 10 /ul (Negative); Protein-Dipstick Negative (Negative); Specific Gravity, Urine 1.025 (1.002-1.030); Urine Bilirubin Dipstick Negative (Negative); Urine Clarity Clear (Clear); Urine Urobilinogen Normal (Normal)
[2018-03-27 15:26] LABS: Bacteria 1+ /hpf (None Seen); Red Blood Cells-Urine 0-5 SEEN /hpf (0-5); Squamous Epithelial Cells - UA 0-5 SEEN /hpf (5-10); White Blood Cells 0-5 SEEN /hpf (0-5)
[2018-03-27 15:36] LABS: Anion Gap 4 (5-15); BUN 20 mg/dL (7-18); BUN/Creat Ratio 29.4 RATIO (10-20); Calcium,Total 10.9 mg/dL (8.5-10.1); Chloride 110 mmol/L (98-107); Creatinine, Serum 0.68 mg/dL (0.55-1.02); EST Glomerular Filtration Rate 90 mL/min (>60); Est Glom Filt Rate - Afr Amer 109 mL/min (>60); Glucose 109 mg/dL (74-106); Potassium 4.1 mmol/L (3.5-5.1); Sodium Level 145 mmol/L (136-145)
== END ==
PROVIDERS: Family Provider Family Medicine; PCP Family Medicine; Visit Provider Internal Medicine Cardiovascular Disease
DX: R31.9 Hematuria, unspecified (principal); I48.91 Unspecified atrial fibrillation
CPT/HCPCS: 36415; 80048; 81001

== ENCOUNTER → 2018-04-04 15:42 | Outpatient (CLI) | payer MEDICARE, SELFPAY ==
[2018-04-04 15:48] LABS: Bacteria 0 SEEN /hpf (None Seen); Mucous, Urine 0 SEEN /hpf (<or=2+); Red Blood Cells-Urine 0 SEEN /hpf (0-5)
[2018-04-04 17:31] LABS: Color, Urine Yellow (Yellow); Glucose, Dipstick Normal (Normal); Ketone-Dipstick Negative (Negative); Leukocyte Esterase-Dipstick 25 /ul (Negative); Nitrite-Dipstick Negative (Negative); Occult Blood-Urine Negative /ul (Negative); Protein-Dipstick Negative (Negative); Specific Gravity, Urine 1.015 (1.002-1.030); Urine Bilirubin Dipstick Negative (Negative); Urine Clarity Clear (Clear); Urine Urobilinogen Normal (Normal)
[2018-04-04 17:40] LABS: Squamous Epithelial Cells - UA 5-10 SEEN /hpf (5-10); White Blood Cells 0-5 SEEN /hpf (0-5)
== END ==
PROVIDERS: Family Provider Family Medicine; PCP Family Medicine; Visit Provider Internal Medicine Cardiovascular Disease
DX: R31.9 Hematuria, unspecified (principal)
CPT/HCPCS: 81001

== ENCOUNTER 2018-11-05 02:12 | Observation (INO) | payer MEDICARE, SELFPAY ==
[2018-11-05] VITALS (18 sets, daily range): BP systolic 123–159; BP diastolic 64–123; PULSE 53–165; RESP 16–28; TEMP 36.5–37.2; O2SAT 95–100; BMI 40.4; BMI 39.6; BMI 39.7
--- NOTE | 2018-11-05 02:28 | RAD_ITS ---
STUDY: X-RAY CHEST REASON FOR EXAM: Female, 72 years old. Sensation of atrial fibrillation. TECHNIQUE: AP portable chest. COMPARISON: February 25, 2018. FINDINGS: The lungs are clear and expanded. There is no demonstrated pleural abnormality. Borderline cardiomegaly. Normal mediastinum and royce. Normal visualized pulmonary arteries. Normal visualized aortic arch and descending thoracic aorta. Normal visualized thoracic spine. Normal visualized ribs, clavicles, and shoulders. There is no demonstrated abnormality of the visualized soft tissue structures of the upper abdomen. RAD/Chest 1 View (Portable) IMPRESSION: Normal x-ray examination of the chest. Electronically Signed: Markus Rodriguez MD at 2:57 EST , Service support ,
[2018-11-05] MEDS: Aspirin 81 MG TAB.CHEW 324 MG PO (02:49)
[2018-11-05] MEDS: dilTIAZem 25 MG/5 ML Vial 20 MG IV BOLUS (02:49)
[2018-11-05 02:55] LABS: Absolute Lymphocyte Count 1.82 X10^3/ul (0.83-4.51); Basophil# 0.01 X10^3/uL; Basophil% 0.2 % (0-1); Eosinophil# 0.16 X10^3/uL; Eosinophils% 2.4 % (0-5); Hematocrit 47.8 % (37-47); Hemoglobin 15.8 g/dl (12.0-15.0); Lymphocyte # 1.82 X10^3/ul (4.0); Lymphocyte % 27.5 % (19-41); Mean Corp Hgb Conc 33.1 g/gl (32-36); Mean Corpuscular Hgb 30.9 pg (27.0-32.0); Mean Corpuscular Volume 93.4 fL (81-99); Mean Platelet Vol. 10.6 fl (6.2-12.0); Monocyte# 0.62 X10^3/uL; Monocyte% 9.4 % (0-10); Neutrophil # 3.99 X10^3/uL (2.7-7.7); Neutrophil % 60.3 % (47-70); Platelet Count 231 K/mm3 (150-450); RBC Distribution Width CV 13.1 % (11.6-14.6); RBC Distribution Width SD 44.9 fl (35.1-43.9); Red Blood Count 5.12 M/mm3 (4.2-5.4); White Blood Count 6.6 K/mm3 (4.4-11.0)
[2018-11-05 03:08] LABS: POSITIVE COUNT NO; POSITIVE DIFFERENTIAL NO; POSITIVE MORPHOLOGY NO
[2018-11-05 03:13] LABS: Anion Gap 7 (5-15); BUN 19 mg/dL (7-18); Calcium,Total 11.5 mg/dL (8.5-10.1); Chloride 109 mmol/L (98-107); Creatinine, Serum 1.19 mg/dL (0.55-1.02); EST Glomerular Filtration Rate 47 mL/min (>60); Est Glom Filt Rate - Afr Amer 57 mL/min (>60); Estimated Creatinine Clearance 37.32 ml/min; Glucose 143 mg/dL (74-106); Sodium Level 143 mmol/L (136-145); Thyroid Stim Hormone (TSH) 0.17 uIU/mL (0.358-3.74)
--- NOTE | 2018-11-05 03:42 | ED.VISSUMM ---
- ER Visit Summary Date of Service: 11/05/18 Chief Complaint: Palpitations History of Present Illness: The patient is a [address] Cole Artis III. She has a history of paroxysmal atrial fibrillation. She reports approximately 2 hours ago while walking up the ramp to bring her to the emergency department she been experiencing palpitations. She reports that she has a substernal chest tightness that is 10 out of 10 at worst and 5-10 currently. Is worsened by exertion relieved by rest. She reports she is felt nauseated, but has not vomited. She has had mild shortness of breath. No diaphoresis. Patient reports that she has had atrial fibrillation in the past. However, she is not anticoagulated. States that last month she had her dose of metoprolol tartrate decreased from 50 mg a day to 25 mg a day because her heart rate was too low. Physical Examination: Vitals: 98.9, 159/123, 155, 28, 97% room air which is not hypoxic. General: Well-nourished and well-developed. Head: Normocephalic atraumatic. Neck: Supple, no lymphadenopathy. No JVD. Nontender. Cardiovascular: Tachycardic irregular rhythm. No murmurs. Respiratory: No respiratory distress. Clear to auscultation bilaterally. Abdominal: Soft, nontender, nondistended, normal bowel sounds. No guarding, rebound, or peritoneal signs. Back: Nontender. Extremities: Nontender, 1+ pitting edema over lower extremity bilaterally. Skin: Normal color, no rash. Neurologic: Alert and oriented ?3. Cranial nerves II through XII are intact. Normal strength and sensation. Psych: Normal affect. Test Results: EKG is A. fib [address] changes. Troponin is negative. Chem-7 is remarkable for a chloride of 109, BUN of 19, creatinine 1.19, glucose 143, calcium 11.5. Magnesium is 2.0. TSH 0.17. CBC is more for an H&H of 15.8 and 47.8. Chest x-ray is normal. Emergency Department Course and Treatment: Patient was given aspirin p.o. She was given 20 mg of Cardizem IV. Her rate decreased into the low 100s with this. She was given 25 mg of Cardizem IV in addition to this and her rate is now in the 80s. However, she remains in atrial fibrillation. Treatment Plan: Patient was discussed with Dr. Ferguson. She will be admitted to the hospital for further evaluation and treatment. Disposition: Admitted in improved condition. Impression: 1. Atrial fibrillation with RVR. This note was generated with Humansized dictation software. It may contain incorrect words, spelling, and punctuation that were not noted in review of the chart prior to signing ED Disposition - Plan for ED Patient: Chief Complaint: Palpitations Referrals: Carlos Manuel Artis III, MD [Primary Care Provider] -
[2018-11-05] MEDS: dilTIAZem 25 MG/5 ML Vial IV BOLUS (03:48)
--- NOTE | 2018-11-05 04:02 | HP.PCM_ITS ---
History of Present Illness Date of Admission: 11/05/18 Chief Complaint: palpitations The patient is a 72 year old F with a history of paroxysmal A. fib, hypertension and diabetes mellitus as well as hypothyroidism and hyperparathyroidism. She was admitted through the ED on 11/02/2018 with a complaint of palpitations. Patient has a history of paroxysmal A. fib and states about 6 weeks ago, her metoprolol dose was decreased from 50 mg to 25 mg on account of her heart rate been down in the 40s. She was asymptomatic at that time. She brought her to the emergency room today on account of him having a UTI. As she was helping him up to the ED, she started feeling short of breath and having palpit ations with assisted lightheadedness and dizziness. She informed the nurse that she was not feeling well and her heart rate was checked and she was found to be in A. fib with RVR. Heart rate was up to 165. She received 45 mg of Cardizem in the ED and her heart rate came down to the 80s but she remained in A. fib. EKG showed A. fib with RVR. Initial troponin was negative. She has been admitted to be managed for A. fib with RVR. [] Past Medical History Past Medical History (Chronic Problems): Chronic Problems (Last Updated 09/08/18 @ 08:28 by NOAH Mike) Fatigue (Chronic) Essential (primary) hypertension (Chronic) Paroxysmal atrial fibrillation (Chronic) Hypothyroidism (Chronic) Morbid obesity with BMI of 40.0-44.9, adult (Chronic) Medical History: Medical History (Last Updated 09/08/18 @ 08:28 by NOAH Mike) Fatigue (Chronic) R53.83 Essential (primary) hypertension (Chronic) I10 Paroxysmal atrial fibrillation (Chronic) I48.0 Hematuria (Acute) R31.9 Palpitations (Acute) R00.2 Atrial fibrillation with RVR (Acute) I48.91 Hypothyroidism (Chronic) E03.9 Morbid obesity with BMI of 40.0-44.9, adult (Chronic) E66.01, Z68.41 Arthritis M19.90 Hyperparathyroidism E21.3 Allergies Penicillins Allergy (Verified 03/10/18 13:27) Unknown inhalers Adverse Reaction (Uncoded 03/10/18 13:27) Unknown knee injections Adverse Reaction (Uncoded 03/10/18 13:27) Unknown Home Medications: Ambulatory Orders Medication Instructions Recorded Cholecalciferol (Vitamin D3) 1,000 unit PO QHS 11/04/17 [Vitamin D3] Red Yeast Rice 600 mg PO QHS 11/04/17 Lisinopril [Zestril] 10 mg PO DAILY 02/25/18 aspirin 325 mg tablet 650 mg PO QDAY tab 03/10/18 cinnamon bark 500 mg capsule 1,000 mg PO DAILY cap 03/10/18 levothyroxine 112 mcg capsule 112 mcg PO QDAY 03/10/18 magnesium oxide 500 mg tablet 500 mg PO QHS tab 03/10/18 potassium chloride ER 20 mEq 20 meq PO QDAY #30 tab 03/10/18 tablet,extended release Just Barley 1 cap PO DAILY 11/05/18 Losartan Potassium 50 mg PO DAILY 11/05/18 Metoprolol Tartrate [Lopressor 25 mg PO DAILY 11/05/18 (beta andre)] Nuban 1 dose PO DAILY 11/05/18 Super Clp Enzyme 1 tab PO DAILY 11/05/18 Surgical History: Surgical History (Last Reviewed 03/10/18 @ 13:34 by María Carolina) History of section Z98.891 x2 Surgical History: - - x 2. 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 Review of Systems Constitutional: Denies: Chills, Fever, Malaise, Weakness, Weight Change, Fatigue Eyes: Denies: Blurred vision HEENT: Reports: Difficulty Hearing. Denies: Head Aches, Sinus Congestion, Sinus Drainage Cardiovascular: Reports: Chest Pain, Chest Pressure, Palpitations. Denies: Danielle st Tightness, Edema, Light Headedness, Orthopnea, Syncope Respiratory: Denies: Cough, Shortness of breath at rest, Sputum production Gastrointestinal: Denies: Abdominal Pain, Nausea, Vomiting Genitourinary: Denies: Dysuria Musculoskeletal: Denies: Joint Pain, Joint Tenderness Skin: Denies: Rash, Wounds Neurological: Denies: Numbness, Tingling, Focal weakness Psychiatric: Denies: Anxiety, Depression, Homicidal Ideations, Suicidal Ideations Hematologic/ Lymphatic: Denies: Easy Bruising, Easy Bleeding VTE Information - Inpt Only VTE Present on Admission: No VTE Pharm Prophylaxis ordered?: Yes - Physical Exam General: Alert, Oriented x3, Cooperative, No apparent distress HEENT: Atraumatic, PERRLA, EOMI, Normocephalic Oral: Moist Mucosa Neck: Supple, No JVD, Negative Carotid Bruits Lungs: Clear to auscultation, Normal air movement, No rhonchi, No wheeze, No rales Cardiovascular: Normal S1, Normal S2, No murmurs, Irregular Rate - and rhythm. In Afib Abdomen: Bowel Sounds Present, Soft, Non Tender, Non-Distended, No Hepato- splenomegaly Extremities: No clubbing, No cyanosis, No edema, Capillary Refill Less than 3 Seconds Skin: No rashes, No breakdown Musculoskeletal: No Tenderness to Palpation of Joints or Extremities Lymphatic: No Cervical, Supraclavicular, or Inguinal Adenopathy Neurological: Cranial nerves II-XII grossly intact, Neuro grossly intact, Motor Exam 5/5 strength throughout Psych/Mental Status: Normal Affect, Appropriate, Alert and oriented to time, place, person, mood and affect Vital Signs Temp Pulse Resp BP Pulse Ox 98.9 F 102 H 24 H 144/97 H 95 11/05/18 02:13 11/05/18 03:53 11/05/18 03:53 11/05/18 03:53 11/05/18 03:53 Oxygen Flow Rate (L/min) 2 Oxygen Delivery Method Nasal Cannula Weight: 243 lb Body Mass Index (BMI) 40.4 Laboratory Tests Past 24 Hrs 11/05/18 11/05/18 02:22 02:22 WBC 6.6 RBC 5.12 Hgb 15.8 H Hct 47.8 H MCV 93.4 MCH 30.9 MCHC 33.1 RDW 13.1 RDW Differential 44.9 H Plt Count 231 MPV 10.6 Immature Gran % (Auto) 0.200 Neut % (Auto) 60.3 Lymph % (Auto) 27.5 [place] % (Auto) 9.4 Eos % (Auto) 2.4 Baso % (Auto) 0.2 Absolute Neuts (auto) 4.0 Absolute Lymphs (auto) 1.82 Total Counted Not Reportable Sodium 143 Potassium 4.0 Chloride 109 H Carbon Dioxide 27.0 Anion Gap 7 BUN 19 H Creatinine 1.19 H Estim Creat Clear Calc 37.32 Est GFR (MDRD) Af Amer 57 L Est GFR (MDRD) Non-Af 47 L BUN/Creatinine Ratio 16.0 Glucose 143 H Calcium 11.5 H Magnesium 2.0 Troponin I < 0.015 TSH 0.17 L Diagnostic Data Chest X-Ray 11/05/18 02:28 IMPRESSION: Normal x-ray examination of the chest. Electronically Signed: Markus oRdriguez MD at 2:57 EST , Service support , Assessment/Plan All Active Problems (Last Updated 09/08/18 @ 08:28 by Omega Proctor, AMBULATORY CARE COORDINATOR-C) Hematuria (Acute) Palpitations (Acute) Atrial fibrillation with RVR (Acute) 72-year-old female with a history of A. fib presents with palpitations and found to be in A. fib with RVR. 1. Afib with RVR * metoprolol was recently decreased from 50 mg to 25 mg about 6 weeks ago on account of her being bradycardic with heart rate in the 40s. * Heart rate now down to the 80s after receiving IV Cardizem 20 mg followed by 25 mg dose of Cardizem. * Initial troponin negative. Chest x-ray shows no acute cardiopulmonary process. * Admit to PCU with telemetry * Cycle troponins. * Increase metoprolol to 37.5 mg daily for now as patient is uncomfortable with dose been increased to 50 mill grams daily * CHADVASC score: ~ 5; patient currently only on aspirin. says she used to be on a blood thinner, but it was stopped about a year ago o.a of her having hematuria * 2D echo94/180; Ef of 65%, moderate LV hypertrophy; normal LVSF * patient is not comfortable with being started on oral anticoagulation now, and would want cardiology to be consulted about decision to start oral anticoagulation, in light of her history of hematuria * patient counselled about her risk of stroke and understands that she is at risk of stroke if she refuses oral anticoagulant * 2. Chest pain: * complains of pressure like chest pain when palpitations started * initial troponin negative * EKG showed no acute ST changes * initial troponin negative; will cycle * on aspirin 81mg daily; SL nitroglycerin prn * from cardiology office note(09/08/18); she was asked to do a nuclear stress test o/a of SOB, but didnt follow through with the order * 3. JADYN: Cr is 1.19; baseline is ~ 0.6. Will hydrate gently with IVF and monitor 4. Hypertension: 5. Diabetes mellitus: diet controlled. ISS. Accuchecks ACHS 6. Hypercalcemia due to hyperparathyroidism * calcium is 11.5 * says she has been told she needs parathyroid surgery but has not done it yet. * Calcium is chronically elevated. * Hydrate with IV fluids and monitor. * 7. Hypothyroidism: on synthroid. TSH is 0.17. To follow uup with PCP for synthroid dose to be titrated DVT prophylaxis: heparin Code Visit OBSV E&M: 16622 Initial observation care L3
[2018-11-05] MEDS: 0.9% Normal Saline 1,000 ML 100 ML IV (06:37)
[2018-11-05] MEDS: Levothyroxine 112 MCG Tablet PO (06:37)
[2018-11-05 08:02] LABS: Absolute Lymphocyte Count 2.03 X10^3/ul (0.83-4.51); Absolute Neutrophil Count 4.6 X10^3/uL (2.0-7.7); Basophil# 0.02 X10^3/uL; Basophil% 0.3 % (0-1); Eosinophil# 0.16 X10^3/uL; Eosinophils% 2.1 % (0-5); Hematocrit 46.1 % (37-47); Hemoglobin 15.3 g/dl (12.0-15.0); Lymphocyte # 2.03 X10^3/ul (4.0); Lymphocyte % 27.1 % (19-41); Mean Corp Hgb Conc 33.2 g/gl (32-36); Mean Corpuscular Hgb 31.1 pg (27.0-32.0); Mean Corpuscular Volume 93.7 fL (81-99); Mean Platelet Vol. 10.9 fl (6.2-12.0); Monocyte# 0.66 X10^3/uL; Monocyte% 8.8 % (0-10); Neutrophil # 4.59 X10^3/uL (2.7-7.7); Neutrophil % 61.4 % (47-70); Platelet Count 225 K/mm3 (150-450); RBC Distribution Width CV 13.2 % (11.6-14.6); Red Blood Count 4.92 M/mm3 (4.2-5.4); White Blood Count 7.5 K/mm3 (4.4-11.0)
[2018-11-05 08:05] LABS: POSITIVE COUNT NO; POSITIVE DIFFERENTIAL NO; POSITIVE MORPHOLOGY NO
[2018-11-05] MEDS: Metoprolol Tartrate 50 MG Tablet PO (08:06)
[2018-11-05] MEDS: Aspirin 325 MG Tablet 650 MG PO (08:06)
[2018-11-05] MEDS: Metoprolol Tartrate 5 MG/5 ML Vial IV (08:35)
[2018-11-05] MEDS: 0.9% NaCl Peripheral Flush Adult/Peds IV (08:36)
[2018-11-05 08:37] LABS: Anion Gap 8 (5-15); BUN 16 mg/dL (7-18); BUN/Creat Ratio 22.8 RATIO (10-20); Calcium,Total 10.5 mg/dL (8.5-10.1); Chloride 112 mmol/L (98-107); EST Glomerular Filtration Rate 87 mL/min (>60); Est Glom Filt Rate - Afr Amer 105 mL/min (>60); Estimated Creatinine Clearance 44.41 ml/min; Glucose 134 mg/dL (74-106); Potassium 3.8 mmol/L (3.5-5.1); Sodium Level 145 mmol/L (136-145)
--- NOTE | 2018-11-05 10:39 | PCM.CONS.C ---
Problem List (1) Essential (primary) hypertension Status: Chronic (2) Paroxysmal atrial fibrillation Status: Chronic (3) Palpitations Status: Acute (4) Atrial fibrillation with RVR Status: Acute Reason for Consult Date of Consultation: 11/05/18 Reason for Consultation: Paroxysmal atrial fibrillation, hypertension, diabetes History of Present Illness: The patient is a 72 year old F, patient of Dr. Thornton, with a history of obesity, hypertension, diabetes, paroxysmal atrial fibrillation first diagnosed in February 2018. At that time she was admitted for palpitations and atrial fibrillation and seen by Dr. De La Rosa. At that time an echocardiogram was performed which showed moderate concentric LVH with an EF around 65%. She declined stress testing at that time. She converted to normal sinus rhythm and was transiently placed on Eliquis. The patient was placed on Lopressor therapy 50 mg p.o. twice daily, and approximately 1 month ago it was decreased to 25 mg twice daily due to asymptomatic sinus bradycardia by our physician certified medical assistant Omega canchola. Patient remained asymptomatic up until this morning when she was taking her sick into the emergency room. The patient was hurrying in from the parking lot, and noted new onset palpitations, shortness of breath but no chest pain or anginal symptoms. The patient cannot detect when she goes in and out of atrial fibrillation. She brought this to the attention of the nurse who then did an EKG which showed atrial fibrillation with rapid ventricular response. Patient was then admitted for medical therapy. Prior to this event she denied any chest pain, angina, shortness of breath or palpitations. Patient is very scared of getting a stress test as she is concerned it may cause a heart attack. She has never had a heart catheterization. Troponins have been negative x2. The patient was given 5 mg of IV Lopressor this morning which initially slowed her heart rate down but then increased back up. Her beta-andre is been increased to 50 mg twice daily. Patient was placed on Lovenox therapy. She is no longer on her Eliquis. [] Past Medical History Allergies/Adverse Reactions: Allergies Penicillins Allergy (Verified 03/10/18 13:27) Unknown inhalers Adverse Reaction (Uncoded 03/10/18 13:27) Unknown knee injections Adverse Reaction (Uncoded 03/10/18 13:27) Unknown Home Medications: Ambulatory Orders Medication Instructions Recorded Cholecalciferol (Vitamin D3) 1,000 unit PO QHS 11/04/17 [Vitamin D3] Red Yeast Rice 600 mg PO QHS 11/04/17 aspirin 325 mg tablet 650 mg PO DAILY tab 03/10/18 cinnamon bark 500 mg capsule 1,000 mg PO QHS cap 03/10/18 levothyroxine 112 mcg capsule 112 mcg PO DAILY 03/10/18 magnesium oxide 500 mg tablet 250 mg PO QHS tab 03/10/18 Just Barley 1 cap PO QHS 11/05/18 Losartan Potassium 50 mg PO DAILY 11/05/18 Metoprolol Tartrate [Lopressor 25 mg PO DAILY 11/05/18 (beta andre)] Nuban 1 dose PO DAILY 11/05/18 Super Clp Enzyme 1 tab PO QHS 11/05/18 Past Medical History (Chronic Problems): Chronic Problems (Last Updated 09/08/18 @ 08:28 by Omega Proctor NP-C) Fatigue (Chronic) Essential (primary) hypertension (Chronic) Paroxysmal atrial fibrillation (Chronic) Hypothyroidism (Chronic) Morbid obesity with BMI of 40.0-44.9, adult (Chronic) Surgical History: - - x 2. 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 Lives: Spouse/ Significant Other Smoking Status: Never smoker Tobacco Use: Non-smoker Alcohol: None Drugs: None Review of Systems - Review of Systems General: Denies: Fever, Night Sweats, Fatigue Cardiovascular: Reports: Palpitations. Denies: Chest Discomfort, Shortness of Breath, Orthopnea, PND, Peripheral Edema, Lightheadedness, Dizziness, Near Syncope, Syncope Respiratory: Denies: Cough, Sputum Production, Hemoptysis Gastrointestinal: Denies: Hematemesis, Hematochezia, Melena Genitourinary: Denies: Dysuria, Hematuria Skin: Denies: Rash Subjectve: Patient resting comfortably, no acute distress. Objective: Vital Signs Temp Pulse Resp BP Pulse Ox 98.3 F 136 H 16 146/70 H 95 11/05/18 08:01 11/05/18 08:35 11/05/18 08:01 11/05/18 08:01 11/05/18 08:10 Oxygen Flow Rate (L/min) 2 Oxygen Delivery Method Room Air Weight: 238 lb 8.642 oz Body Mass Index (BMI) 39.6 Intake and Output for Last 24 Hours 11/03/18 11/04/18 11/05/18 23:59 23:59 23:59 Output Total 0 / 0 Balance 0 / 0 General: Awake, Alert, Oriented x 3 HEENT: PERRL, EOMI, Sclera Non Icteric Neck: Supple, Good ROM, No Lymph Node Enlargement Lungs: Clear to auscultation Cardiovascular: Irregular Rhythm, Normal S1, Normal S2, No Murmurs, No Rubs, No Gallops Vascular: No Carotid Bruits, Normal Femoral Pulses, Normal Radial Pulses, Normal Dorsalis Pedal Pulse, Normal Posterior Tibial Pulses Abdomen: Bowel Sounds Present, Soft, Non Tender, No HSM, No Organomegaly Extremities: No Cyanosis, No Clubbing, No edema Neurological: No Focal Motor or Sensory Deficit 11/05/18 02:22: WBC 6.6, RBC 5.12, Hgb 15.8 H, Hct 47.8 H, MCV 93.4, MCH 30.9, MCHC 33.1, RDW 13.1, RDW Differential 44.9 H, Plt Count 231, MPV 10.6, Immature Gran % (Auto) 0.200, Neut % (Auto) 60.3, Lymph % (Auto) 27.5, [place] % (Auto) 9.4, Eos % (Auto) 2.4, Baso % (Auto) 0.2, Absolute Neuts (auto) 4.0, Total Counted Not Reportable 11/05/18 02:22: Sodium 143, Potassium 4.0, Chloride 109 H, Carbon Dioxide 27.0, Anion Gap 7, BUN 19 H, Creatinine 1.19 H, Est GFR (MDRD) Af Amer 57 L, Est GFR (MDRD) Non-Af 47 L, BUN/Creatinine Ratio 16.0, Glucose 143 H, Calcium 11.5 H, Magnesium 2.0, Troponin I < 0.015 11/05/18 07:40: Sodium 145, Potassium 3.8, Chloride 112 H, Carbon Dioxide 25.0, Anion Gap 8, BUN 16, Creatinine 0.70, Est GFR (MDRD) Af Amer 105, Est GFR (MDRD) Non-Af 87, BUN/Creatinine Ratio 22.8 H, Glucose 134 H, Calcium 10.5 H, Troponin I 0.043 11/05/18 07:40: WBC 7.5, RBC 4.92, Hgb 15.3 H, Hct 46.1, MCV 93.7, MCH 31.1, MCHC 33.2, RDW 13.2, RDW Differential 44.0 H, Plt Count 225, MPV 10.9, Immature Gran % (Auto) 0.300, Neut % (Auto) 61.4, Lymph % (Auto) 27.1, [place] % (Auto) 8.8, Eos % (Auto) 2.1, Baso % (Auto) 0.3, Absolute Neuts (auto) 4.6, Total Counted Not Reportable Rhythm: EKG: Atrial fibrillation with rapid ventricular response, nonspecific ST and T wave changes. ECHO: Pending Stress Test: Cardiac Cath: PCI: CT Surgery: Holter monitor: EPS: PPM: CXR: Chest CT Scan: Assessment/Plan 1. Atrial fibrillation: The patient has demonstrated several episodes of paroxysmal atrial fibrillation, and given her risk factors, age, diabetes, I recommend that she undergo a non-walking Lexiscan stress test tomorrow morning. The patient is very afraid of undergoing a stress test as she is concerned about the side effects of the adenosine as well as possibly having a myocardial infarction. I assured her for some time in conversation that this is a safe procedure and is done millions of times a year throughout the country, and that we will take safeguards to protect her as best we can. I cannot assure her that she will have no symptomatic side effects from the Lexiscan injection, and the patient wishes to think about it and will give me a response by noon today. I explained to her the importance of doing so given her risk factors and her paroxysmal atrial fibrillation. If her stress test is done tomorrow morning and it is abnormal I would recommend that she undergo a diagnostic coronary angiogram tomorrow morning. If her stress test is negative, I would recommend treating her with Lopressor 50 mg p.o. twice daily and permanent Eliquis for paroxysmal atrial fibrillation for primary stroke prevention. Also recommend a repeat echocardiogram to determine if the patient has had deterioration of her LV function since her echocardiogram in February 2018. At that time she had moderate concentric LVH and normal LV function. Patient may want to consider an outpatient sleep study to determine if she has obstructive sleep apnea which may be contributing to her paroxysmal atrial fibrillation. If the patient's heart rate is not well controlled with traditional medical therapy I have a low threshold to place her on amiodarone drip per protocol. Hopefully the patient will spontaneously convert back on her own. Patient has ruled out for myocardial infarction with troponins x2. If her third troponin is negative she may proceed with stress testing. If she has an abnormal troponin, would hold off on stress testing and proceed with diagnostic left heart catheterization. This was also explained to the patient. Patient's TSH is somewhat low, and would recommend obtaining a T4 to determine if the patient requires of adjustment of her Synthroid therapy. The patient is status post radioactive iodine to her thyroid in the past. 2. Hyperlipidemia: Would recommend obtaining a fasting lipid profile. The patient's LDL should be less than 70 given her diabetes risk factors. 3. Thank you very much for the opportunity to participate in the cardiac care of your patient. Consultation time took place between 930 and 10 AM. Code Visit Inpatient E&M: 70717 Init Hosp L2
[2018-11-05] MEDS: Losartan Potassium 50 MG Tablet PO (10:47)
[2018-11-05 11:50] LABS: Cholesterol 195 mg/dL (200); High Density Lipoprotein 54 mg/dL; T4 Free Direct 1.48 ng/dL (0.76-1.46); Triglycerides 176 mg/dL; Very Low Density Lipoprotein 35 mg/dL (5-40)
--- NOTE | 2018-11-05 15:28 | DCINST_ITS ---
You will use the following diet at home:: Cardiac Your food should be the consistency of: Regular Your liquids should be the consistency of: Regular/Thin Discharge Activity: Return to Normal Activity Call your doctor if you observe: Fever of 101 or Higher, Shortness of breath, Chest pain Allergies/Adverse Reactions: Allergies Penicillins Allergy (Verified 03/10/18 13:27) Unknown inhalers Adverse Reaction (Uncoded 03/10/18 13:27) Unknown knee injections Adverse Reaction (Uncoded 03/10/18 13:27) Unknown Medications to take at Discharge Cholecalciferol (Vitamin D3) [Vitamin D3] 1,000 unit PO QHS 11/04/17 Red Yeast Rice 600 mg PO QHS 11/04/17 aspirin 325 mg tablet 650 mg PO DAILY tab 03/10/18 cinnamon bark 500 mg capsule 1,000 mg PO QHS cap 03/10/18 levothyroxine 112 mcg capsule 112 mcg PO DAILY 03/10/18 magnesium oxide 500 mg tablet 250 mg PO QHS tab 03/10/18 Just Barley 1 cap PO QHS 11/05/18 Losartan Potassium 50 mg PO DAILY 11/05/18 Metoprolol Tartrate [Lopressor (beta andre)] 50 mg PO BID #60 tablet 11/05/18 Nuban 1 dose PO DAILY 11/05/18 Super Clp Enzyme 1 tab PO QHS 11/05/18 The following prescriptions were given: Metoprolol Tartrate [Lopressor (beta andre)] 50 mg PO BID #60 tablet Primary Care Physician: Carlos Manuel Artis III, MD [Primary Care Provider] - Within 2 Weeks Test Results: Test results from this visit will be discussed in further detail at your follow- up appointment, if applicable. Please Follow Up With: Dheeraj Galvan MD When: 2-4 weeks Proposed Discharge Date: 11/05/18
--- NOTE | 2018-11-05 15:28 | PCM.DC.SUM ---
Discharge Date and Diagnosis - Problem List Patient Problems: Active and Suspected Problems (Last Updated 09/08/18 @ 08:28 by NOAH Mike) Atrial fibrillation with RVR (Acute) Date of Admission: 11/05/18 Date of Discharge: 11/05/18 - Secondary Discharge Diagnosis Chronic Problems (Last Updated 09/08/18 @ 08:28 by NOAH Mike) Fatigue (Chronic) Essential (primary) hypertension (Chronic) Paroxysmal atrial fibrillation (Chronic) Hypothyroidism (Chronic) Morbid obesity with BMI of 40.0-44.9, adult (Chronic) Hospital Course and Treatment Imaging Results: 11/06/18 08:00 Nuclear Stress Test - Chemical [NM] Routine Operations: None Procedures: None Summary of Care Provided: The patient is a 72 year old F presents with afib w RVR. She received a total of 45mg of diltiazem in ED. On the floor, she still did have Afib with RVR. Received IV metoprolol, then started on metoprolol 50 BID. Patient developed a pause, then converted to NSR. Cardiology recommends Eliquis. Given her history of hematuria while on anticoagulation, the patient declines, and prefers to stay on ASA. Informed of risk of CVA without proper anticoagulation. Also, recommended urology evaluation as outpt given her history of hematuria. [] Patient Problems: Active and Suspected Problems (Last Updated 09/08/18 @ 08:28 by NOAH Mike) Atrial fibrillation with RVR (Acute) - Physical Exam General: Alert, Cooperative, No apparent distress HEENT: Atraumatic, Normocephalic Oral: Moist Mucosa, No Gingival or Mucosal Lesions/ Ulcerations Lungs: Clear to auscultation, Normal air movement, No rhonchi, No wheeze Cardiovascular: Regular rate, Regular Rhythm, Normal S1, Normal S2, No murmurs Abdomen: Bowel Sounds Present, Soft, Non Tender, Non-Distended Vital Signs Temp Pulse Resp BP Pulse Ox 36.6 C 58 L 16 123/70 H 96 11/05/18 14:26 11/05/18 14:26 11/05/18 14:26 11/05/18 14:26 11/05/18 14:26 Oxygen Flow Rate (L/min) 2 Oxygen Delivery Method Room Air Weight: 108.2 kg Body Mass Index (BMI) 39.6 Intake and Output for Last 24 Hours 11/03/18 11/04/18 11/05/18 23:59 23:59 23:59 Intake Total 975 / 975 Output Total 0 / 0 Balance 975 / 975 Laboratory Tests Past 24 Hrs 11/05/18 11/05/18 11/05/18 02:22 02:22 07:40 WBC 6.6 RBC 5.12 Hgb 15.8 H Hct 47.8 H MCV 93.4 MCH 30.9 MCHC 33.1 RDW 13.1 RDW Differential 44.9 H Plt Count 231 MPV 10.6 Immature Gran % (Auto) 0.200 Neut % (Auto) 60.3 Lymph % (Auto) 27.5 [place] % (Auto) 9.4 Eos % (Auto) 2.4 Baso % (Auto) 0.2 Absolute Neuts (auto) 4.0 Absolute Lymphs (auto) 1.82 Total Counted Not Reportable Sodium 143 145 Potassium 4.0 3.8 Chloride 109 H 112 H Carbon Dioxide 27.0 25.0 Anion Gap 7 8 BUN 19 H 16 Creatinine 1.19 H 0.70 Estim Creat Clear Calc 37.32 44.41 Est GFR (MDRD) Af Amer 57 L 105 Est GFR (MDRD) Non-Af 47 L 87 BUN/Creatinine Ratio 16.0 22.8 H Glucose 143 H 134 H Calcium 11.5 H 10.5 H Magnesium 2.0 Troponin I < 0.015 0.043 Triglycerides Cholesterol LDL Cholesterol VLDL Cholesterol HDL Cholesterol TSH 0.17 L Free T4 11/05/18 11/05/18 11/05/18 07:40 07:40 13:53 WBC 7.5 RBC 4.92 Hgb 15.3 H Hct 46.1 MCV 93.7 MCH 31.1 MCHC 33.2 RDW 13.2 RDW Differential 44.0 H Plt Count 225 MPV 10.9 Immature Gran % (Auto) 0.300 Neut % (Auto) 61.4 Lymph % (Auto) 27.1 [place] % (Auto) 8.8 Eos % (Auto) 2.1 Baso % (Auto) 0.3 Absolute Neuts (auto) 4.6 Absolute Lymphs (auto) 2.03 Total Counted Not Reportable Sodium Potassium Chloride Carbon Dioxide Anion Gap BUN Creatinine Estim Creat Clear Calc Est GFR (MDRD) Af Amer Est GFR (MDRD) Non-Af BUN/Creatinine Ratio Glucose Calcium Magnesium Troponin I 0.028 Triglycerides 176 Cholesterol 195 LDL Cholesterol 106 VLDL Cholesterol 35 HDL Cholesterol 54 TSH Free T4 1.48 H Discharge Diet: Low fat/ Low Cholesterol Discharge Activity: Return to Normal Activity Call your doctor if you observe: Fever of 101 or Higher, Shortness of breath, Chest pain Home Medications: Medications to take at Discharge Cholecalciferol (Vitamin D3) [Vitamin D3] 1,000 unit PO QHS 11/04/17 Red Yeast Rice 600 mg PO QHS 11/04/17 aspirin 325 mg tablet 650 mg PO DAILY tab 03/10/18 cinnamon bark 500 mg capsule 1,000 mg PO QHS cap 03/10/18 levothyroxine 112 mcg capsule 112 mcg PO DAILY 03/10/18 magnesium oxide 500 mg tablet 250 mg PO QHS tab 03/10/18 Just Barley 1 cap PO QHS 11/05/18 Losartan Potassium 50 mg PO DAILY 11/05/18 Metoprolol Tartrate [Lopressor (beta andre)] 50 mg PO BID #60 tablet 11/05/18 Nuban 1 dose PO DAILY 11/05/18 Super Clp Enzyme 1 tab PO QHS 11/05/18 Following Prescrptions Were Given to Patient: Metoprolol Tartrate [Lopressor (beta andre)] 50 mg PO BID #60 tablet Primary Care Physician: Carlos Manuel Artis III, MD [Primary Care Provider] - Within 2 Weeks Please Follow Up With: Dheeraj Galvan MD When: 2-4 weeks Disposition: Home Minutes spent on discharge:: 32 Patient Condition:: Good Medical Necessity - Tobacco Use Smoking Status: Never smoker Tobacco Use: Non-smoker Meaningful Use Info Meaningful Use Diagnoses (Choose all that apply): None applicable Code Visit OBSV E&M: 94505 Observation care discharge
== END 2018-11-05 15:27 | disposition home or self-care (01) ==
LOC: ED 03:47 → PCU 04:31
PROVIDERS: Internal Medicine Cardiovascular Disease; Admitting Provider Student in an Organized Health Care Education/Training Program; Emergency Provider Emergency Medicine; Family Provider Family Medicine; PCP Family Medicine
DX: I48.0 Paroxysmal atrial fibrillation (principal); E66.01 Morbid (severe) obesity due to excess calories; Z68.39 Body mass index [BMI] 39.0-39.9, adult; Z71.3 Dietary counseling and surveillance; R06.02 Shortness of breath; I10 Essential (primary) hypertension; E11.9 Type 2 diabetes mellitus without complications; E03.9 Hypothyroidism, unspecified; Z79.899 Other long term (current) drug therapy; N17.9 Acute kidney failure, unspecified; E21.3 Hyperparathyroidism, unspecified; E78.5 Hyperlipidemia, unspecified
CPT/HCPCS: 36415; 71045; 80048; 80061; 83735; 84439; 84443; 84484; 85025; 93005; 96361; 96374; 96375; 96376; 99218; 99285; J7030; J7050; A4216; G0378

== ENCOUNTER → 2019-11-20 13:33 | Outpatient (CLI) | payer MEDICARE, SELFPAY ==
[2019-09-06 13:32] VITALS: BMI 42.9
--- NOTE | 2019-11-20 13:36 | CT_ITS ---
STUDY: CT ABDOMEN AND PELVIS WITHOUT CONTRAST REASON FOR EXAM: Female, 73 years old. GROSS HEMATURIA, HTN, PREV X 2, DB-NO MEDS RADIATION DOSAGE (If Supplied By Facility): CTDIvol = ( 23.46 ) mGy, DLP = ( 1142.91 ) mGycm TECHNIQUE: Transaxial images were obtained from the dome of the diaphragm to the symphysis pubis without oral contrast, and without intravenous contrast. Sagittal and coronal images were reconstructed. Individualized dose optimization techniques were used for this CT. COMPARISON: None. FINDINGS: The visualized lung bases are unremarkable. Coronary artery calcification. Normal liver. There are multiple gallstones. Normal spleen. Normal pancreas. There is symmetric enlargement of the adrenal glands suggesting adrenal hyperplasia. Punctate calcification in the mid aspect of the right kidney. There is a 8 mm calcified cyst in the anterior aspect of the upper pole of the left kidney. There is a 1 cm calculus in the left renal pelvis causing a mild degree of left hydronephrosis. Tiny nonobstructive calculi are seen in the lower pole calyx of the left kidney as well. There is a small hiatal hernia. Normal small intestine. There are multiple colonic diverticula consistent with diverticulosis. The appendix is visualized and appears normal. Normal abdominal aorta. Normal inferior vena cava. Normal retroperitoneum. Normal urinary bladder. Fibroid uterus. There is a small umbilical hernia containing fat. There are diffuse degenerative changes of the visualized lumbar spine. Mild dextroscoliosis. CT/Abdomen/Pelvis without Cont IMPRESSION: 1 cm calculus in the left renal pelvis. Multiple tiny bilateral nonobstructive intrarenal calculi. Electronically Signed: Jomar Iqbal, at 15:52 EST , Service support ,
== END ==
PROVIDERS: Family Provider Family Medicine; PCP Family Medicine; Referring Provider Family Medicine; Visit Provider Family Medicine
DX: R31.29 Other microscopic hematuria (principal)
CPT/HCPCS: 74176

== ENCOUNTER → 2019-12-03 10:00 | Outpatient (CLI) | payer MEDICARE, SELFPAY ==
[2019-09-06 13:32] VITALS: BMI 42.9
--- NOTE | 2019-12-03 10:03 | NM_ITS ---
CLINICAL: 74-year-old female with reported history of hypercalcemia. 99m Tc SESTAMIBI DUAL PHASE PLANAR and SPECT PARATHYROID SCINTIGRAPHY COMPARISON: None available FINDINGS: Following the intravenous administration of 25.4 mCi of 99m Tc sestamibi, planar image acquisitions of the anterior neck at approximately 30 minutes and 3.0 hours post radiopharmaceutical provision and SPECT reconstructions obtained at 3.0 hours reveal: 1. Immediate static blood pool acquisitions demonstrate focal distribution of the radiopharmaceutical in the right anterior neck with minimal visualization of the expected thyroid colloid. 2. Delayed planar images depict relatively unchanged tracer distribution noted in the right anterior neck. Emission computed tomographic reconstructions of the anterior neck reveal confirmation of the plantar projection findings. NM/Parathyroid Image w/ SPECT IMPRESSION: 1. The increase in radiopharmaceutical concentration identified in the right anterior neck on both initial and delayed projections likely represents the presence of a visualized parathyroid adenoma. Electronically Signed: Akash Mcintosh DO at 23:15 EST Tel , Service support ,
== END ==
PROVIDERS: Family Provider Family Medicine; PCP Family Medicine; Referring Provider Family Medicine; Visit Provider Family Medicine
DX: E21.3 Hyperparathyroidism, unspecified (principal); E83.52 Hypercalcemia
CPT/HCPCS: 78071; A9500

== ENCOUNTER 2021-03-28 19:09 | Emergency (ER) | payer MEDICARE, SELFPAY ==
[2020-10-29 11:06] VITALS: BMI 39.6
[2021-03-28 19:10] VITALS: BP 192/72; PULSE 60; RESP 16; TEMP 36; O2SAT 97; BMI 40.6
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
[2021-03-28 21:09] VITALS: BP 181/72; PULSE 62; RESP 16; O2SAT 97
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
[2021-03-28] MEDS: HYDROcodone Bitartrate/Apap 5/325 Tablet PO (22:10)
[2021-03-28 22:15] VITALS: BP 170/74; PULSE 61; RESP 16; O2SAT 96
== END 2021-03-28 22:19 | disposition home or self-care (01) ==
PROVIDERS: Emergency Provider Emergency Medicine; PCP Physician Assistant
DX: S20.211A Contusion of right front wall of thorax, initial encounter (principal); M19.90 Unspecified osteoarthritis, unspecified site; I10 Essential (primary) hypertension; E03.9 Hypothyroidism, unspecified; E66.01 Morbid (severe) obesity due to excess calories; Z79.899 Other long term (current) drug therapy; V43.62XA Car passenger injured in collision with other type car in traffic accident, initial encounter; Y93.I9 Activity, other involving external motion; Y92.410 Unspecified street and highway as the place of occurrence of the external cause; Y99.8 Other external cause status
CPT/HCPCS: 71101; 99283

== ENCOUNTER → 2022-03-11 | Outpatient (CLI) | payer MEDICARE, SELFPAY ==
--- NOTE | 2022-03-11 13:59 | ECHOCS_ITS ---
Reason For Study: ATRIAL FIB-FLUTTER Procedure This was a 2D Doppler, Color Flow transthoracic echocardiogram. The study was technically difficult. Contrast injection was performed. Exam performed in department. Left Ventricle Normal LV size. Left ventricular systolic function is normal. The estimated ejection fraction is 60 %. No regional wall motion abnormalities noted. Right Ventricle Normal RV size. Normal systolic function. Atria The left atrium is mildly enlarged. Normal right atrium. No doppler evidence for ASD. Mitral Valve There is moderate mitral annular calcification. Extension of the mitral annular calcification onto the base of the posterior mitral valve leaflet. Mild (1+) mitral valve insufficiency. Tricuspid Valve Normal tricuspid valve. Mild to moderate (1-2+) tricuspid valve insufficiency. Right ventricular systolic pressure estimated to be 35 mmHg. Aortic Valve Trisinus/trileaflet aortic valve. Moderate focal aortic valve calcification. Pulmonic Valve The pulmonic valve is not well visualized. Great Vessels Normal sized aortic root. Pericardium/Pleural No pericardial effusion. Medication 22 gauge I.V. with prn adaptor inserted into right arm. Diluted definity 3ml given slow IV push to enhance endocardial definition. MMode/2D Measurements & Calculations LVIDd: 4.7 cm IVSd: 1.2 cm Ao root diam: 3.3 cm LVIDs: 3.0 cm LVPWd: 1.1 cm RVDd: 3.3 cm FS: 34.5 % LAV(MOD-bp): 63.8 ml LVAd ap4: 31.3 cm2 SV(MOD-sp4): 62.2 ml LAV(MOD-bp) Indexed: 29.8 ml/m2 LVLd ap4: 8.2 cm LAV(MOD-sp2): 61.6 ml EDV(MOD-sp4): 99.7 ml LAV(MOD-sp4): 64.7 ml EDV(sp4-el): 101.2 ml LVAs ap4: 16.8 cm2 LVLs ap4: 6.4 cm ESV(MOD-sp4): 37.5 ml ESV(sp4-el): 37.6 ml EF(MOD-sp4): 62.4 % EF(sp4-el): 62.8 % SV(sp4-el): 63.6 ml LA A4 area: 22.8 cm2 LA dimension(2D): 4.5 cm RA A4 area: 21.9 cm2 Time Measurements MV dec time: 0.18 sec Doppler Measurements & Calculations MV E max jerome: 121.9 cm/sec Lat Peak E' Jerome: 8.9 cm/sec Med Peak E' Jerome: 9.1 cm/sec MV A max jerome: 105.2 cm/sec E/E' lat: 13.7 E/E' med: 13.5 MV E/A: 1.2 Ao V2 max: 153.4 cm/sec LV V1 max: 93.0 cm/sec PA V2 max: 81.5 cm/sec Ao max P.4 mmHg LV V1 max P.5 mmHg TR max jerome: 282.1 cm/sec TR max P.9 mmHg ECHO/Echo Complete W/ Contrast Interpretation Summary The study was technically difficult. Contrast injection was performed. Left ventricular systolic function is normal. The estimated ejection fraction is 60 %. The left atrium is mildly enlarged. There is moderate mitral annular calcification. Extension of the mitral annular calcification onto the base of the posterior mi tral valve leaflet. Mild (1+) mitral valve insufficiency. Mild to moderate (1-2+) tricuspid valve insufficiency. Moderate focal aortic valve calcification. Right ventricular systolic pressure estimated to be 35 mmHg. Transmitral diastolic flow velocities suggest diastolic dysfunction (pseudonorm al pattern). Ordering Physician: Dheeraj Galvan Referring Physician: AVELINO MANE Performed By: Deborah Pinedo RDCS
== END | disposition home or self-care (01) ==
PROVIDERS: PCP Physician Assistant; Referring Provider Internal Medicine Cardiovascular Disease; Visit Provider Internal Medicine Cardiovascular Disease
DX: R00.2 Palpitations (principal); I48.0 Paroxysmal atrial fibrillation; I10 Essential (primary) hypertension
CPT/HCPCS: 93306; Q9957; A4216; C8929

== ENCOUNTER 2022-03-14 08:59 | Emergency (ER) | payer MEDICARE, SELFPAY ==
[2022-03-14 08:59] VITALS: BP 190/70; PULSE 76; RESP 14; TEMP 36.7; O2SAT 97; BMI 37.7
--- NOTE | 2022-03-14 09:23 | EX.ED.DYSGE1 ---
HPI History of Present Illness Chief Complaint: Allergic Reaction Informant: patient Onset/Context/Timing Onset: Days Context: Gradual Onset Narrative Narrative: Patient presents due to concern of allergic reaction. She had an echocardiogram performed on , the with Definity contrast. She states she woke the next morning and the right side of her face was red and slightly swollen. She believes this is an allergic reaction to the injection. Since that time she has developed chills with abdominal cramping and nausea. [facility] Medical History Arthritis Atrial fibrillation with RVR Essential (primary) hypertension Fatigue Hematuria Hyperparathyroidism Hypothyroidism Morbid obesity with BMI of 40.0-44.9, adult Palpitations Paroxysmal atrial fibrillation Pure hypercholesterolemia Home Medications cinnamon bark 500 mg capsule 500 mg PO DAILY cap 03/10/18 [History Last Taken 11/03/18 23:00] Just Barley 1 cap PO QHS 11/05/18 [History Last Taken 11/03/18 23:00] magnesium 250 mg tablet 250 mg PO DAILY tab 09/06/19 [History Last Taken Unknown] levothyroxine 112 mcg tablet 112 mcg PO DAILY 10/29/20 [History Last Taken Unknown] aspirin 325 mg tablet 325 mg PO DAILY tab 05/29/21 [History Last Taken Unknown] metoprolol succinate 25 mg tablet,extended release 24 hr 12.5 mg PO MOWEFR tab 05/29/21 [History Last Taken Unknown] red yeast rice 600 mg capsule 600 mg PO .COMPLEX cap 05/29/21 [History Last Taken Unknown] amlodipine 5 mg tablet 5 mg PO DAILY 02/22/22 [History Last Taken Unknown] lactobacillus combination no.9 4 billion cell capsule 4,000 mmu cells PO DAILY 02/22/22 [History Last Taken Unknown] omega 3 35 mg-dha 25 mg-epa 5 mg-fish oil 113.5 mg chewable tablet 1 tab PO DAILY tab 02/22/22 [History Last Taken Unknown] apixaban 5 mg tablet 5 mg PO BID #60 tab 03/05/22 [Rx Last Taken Unknown] pravastatin 20 mg tablet 20 mg PO QHS #30 tab 03/08/22 [Rx Last Taken Unknown] Allergy/AdvReac Type Severity Reaction Status Date / Time NSAIDS (Non-Steroidal Allergy Intermediate unknown Verified 03/14/22 09:04 Anti-Inflamma tramadol Allergy Unknown unknown Verified 03/14/22 09:04 Penicillins Allergy Unknown Verified 03/14/22 09:04 lisinopril AdvReac Unknown unknown Verified 03/14/22 09:04 albuterol AdvReac Itching Verified 03/14/22 09:04 knee injections AdvReac Unknown Uncoded 03/14/22 09:04 Family History Brother Hypertension Diabetes Sister Diabetes Hypertension Surgical History History of section Social History Smoking Status: Never smoker alcohol intake: current details: Rare substance use type: does not use ROS ROS ED Constitutional Constitutional ED: Reports chills; Denies fever(s) Eyes Eyes: Denies change in vision ENT ENT ED: Denies sore throat Cardiovascular Cardiovascular: Denies chest pain Respiratory/Chest Respiratory/Chest: Denies cough or dyspnea Gastrointestinal Gastrointestinal: Reports abdominal pain and nausea; Denies diarrhea or vomiting Genitourinary Genitourinary ED: Denies dysuria Musculoskeletal Musculoskeletal: Reports myalgias; Denies back pain Integumentary Denies rash Neurologic Neurologic: Reports headache(s) and weakness Allergic/Immunologic Allergic/Immunologic ED: Denies urticaria EXAM Physical Exam Const Vital Signs: 03/14/22 08:59 03/14/22 10:00 Temperature 98.0 F Temperature Source Temporal Pulse Rate 76 62 Respiratory Rate 14 20 H Blood Pressure 190/70 H 182/76 H Blood Pressure Mean 110 111 Pulse Ox 97 95 Oxygen Delivery Method Room Air Room Air Positive well nourished and well developed General Appearance ED: well developed HEENT Reports moist mucous membranes HEENT Narrative: Normal posterior pharynx. No tongue or lip edema appreciated. Eyes PERRL and EOMs intact bilaterally Neck supple Chest Wall inspection of chest normal and palpation of chest normal Resp normal respiratory effort and clear to auscultation bilaterally Cardio regular rate and regular rhythm GI Auscultation: hypoactive bowel sounds Palpation: soft and tender other (Diffuse abdominal tenderness to palpation.) Extremity normal to inspection Neuro oriented x3 Sensorium / Orientation: alert Psych mental status grossly normal Skin no rashes or lesions noted MDM MDM MDM Narrative Medical decision making narrative: Patient ordered IV fluids and Zofran. Lab work and urinalysis ordered. Lab Data Attestation: I reviewed the patient's lab results. Labs: Laboratory Results - last 24 hr 03/14/22 03/14/22 03/14/22 09:40 09:40 10:50 WBC 10.0 RBC 4.74 Hgb 14.4 Hct 43.9 MCV 92.6 MCH 30.4 MCHC 32.8 RDW Std Deviation 45.0 H RDW Coeff of Chris 13.2 Plt Count 191 MPV 10.0 Immature Gran % (Auto) 0.300 Neut % (Auto) 81.0 H Lymph % (Auto) 7.4 L [place] % (Auto) 10.4 H Eos % (Auto) 0.6 Baso % (Auto) 0.3 Absolute Neuts (auto) 8.1 H Absolute Lymphs (auto) 0.74 L Nucleated RBC % 0 Sodium 139 Potassium 3.4 L Chloride 107 Carbon Dioxide 28.0 Anion Gap 4 L BUN 13 Creatinine 0.90 Estim Creat Clear Calc 48.23 Est GFR (MDRD) Af Amer 77 Est GFR (MDRD) Non-Af 64 BUN/Creatinine Ratio 14.4 Glucose 151 H Calcium 10.8 H Total Bilirubin 1.80 H Direct Bilirubin 0.33 H AST 21 ALT 19 Alkaline Phosphatase 122 H Total Protein 6.7 Albumin 3.6 Globulin 3.1 Lipase 46 L Urine Color YELLOW Urine Clarity Clear Urine pH 7.0 Ur Specific [place] 1.015 Urine Protein 15 H Urine Glucose (UA) Normal Urine Ketones Negative Urine Occult Blood 50 H Urine Nitrite Negative Urine Bilirubin Negative Urine Urobilinogen Normal Ur Leukocyte Esterase 100 H Urine RBC 0-5 SEEN Urine WBC 0-5 SEEN Ur Squamous Epith Cells 0-5 SEEN Urine Bacteria 0 SEEN Urine Mucus 0 SEEN Treatment and Re-Evaluation Narrative: Nursing had left me a note stating the patient was asking for some pain medication. When I went back to the room to discuss this with her to see what she could take with her allergies she denies need for pain medication at this time. Lab work is unremarkable with a normal white count. Chemistry studies significant only for total bili of 1.8. ALT and AST normal. Alk phos elevated at 122. Urinalysis reveals no infection. On repeat evaluation patient remains hypertensive, likely secondary to not taking her morning medications. She continues to complain of epigastric abdominal pain. No guarding or rebound. I told her we will get a CT of her abdomen to further evaluate this but she declines. I did speak with Dr. Galvan as the patient believes this is a reaction from her Definity injection during her echocardiogram. He states the typical reaction that they would see would be injection site reaction or pressure across the kidneys. It would be very atypical for patient to have a delayed reaction like this. Patient believes that this is a reaction from the injection and states that she had a headache immediately and felt that her face was red and flushed prior to leaving the cardiology suite. Regardless patient has had ongoing symptoms for 3 days. She is stable at this time. She will continue Tylenol or aspirin for headache. She was advised to return if her abdominal pain worsens for imaging at that time. Discharge Plan Triage Chief Complaint: Allergic Reaction ED Provider: Ana Rahman Dx/Rx/DC Orders Clinical Impression: Abdominal pain, Headache Instructions: ED Abdominal Pain Unkn Cause Fem Prescriptions: No Action aspirin 325 mg tablet 325 mg PO DAILY RF: 0 Hold Instructions: Order Changed magnesium 250 mg tablet 250 mg PO DAILY RF: 0 metoprolol succinate 25 mg tablet extended release 24 hr 12.5 mg PO MOWEFR RF: 0 levothyroxine 112 mcg tablet 112 mcg PO DAILY RF: 0 amlodipine 5 mg tablet 5 mg PO DAILY RF: 0 Adult 50 Plus Probiotic 4 billion cell capsule 4,000 mmu cells PO DAILY RF: 0 Children's [place]-3 Gummy Fish 35-25-5-113.5 mg tablet,chewable 1 tab PO DAILY RF: 0 cinnamon bark 500 mg capsule 500 mg PO DAILY RF: 0 red yeast rice 600 mg capsule 600 mg PO .COMPLEX RF: 0 Just Barley 1 cap PO QHS RF: 0 apixaban 5 mg tablet 5 mg PO BID Qty: 60 RF: 6 pravastatin 20 mg tablet 20 mg PO QHS Qty: 30 RF: 12 Primary Care Provider: Melanie Keita Referrals: Melanie Keita PA [Primary Care Provider] - 3-5 Days if not improving Disposition Disposition: Home, Self Care
[2022-03-14] MEDS: 0.9% Normal Saline 1,000 ML 150 ML IV (09:40)
[2022-03-14] MEDS: Ondansetron 4 MG/2 ML Vial IV (09:40)
[2022-03-14 10:00] VITALS: BP 182/76; PULSE 62; RESP 20; O2SAT 95
[2022-03-14 10:05] LABS: AST(SGOT) 21 U/L (15-37); Absolute Lymphocyte Count 0.74 X10^3/uL (0.83-4.51); Absolute Neutrophil Count 8.1 X10^3/uL (2.0-7.7); Alanine Aminotransfer ALT/SGPT 19 U/L (13-56); Albumin, Serum 3.6 g/dL (3.2-5.0); Alkaline Phosphatase 122 U/L (45-117); Anion Gap 4 (5-15); BUN 13 mg/dL (7-18); BUN/Creat Ratio 14.4 RATIO (10-20); Basophil# 0.03 X10^3/uL; Basophil% 0.3 % (0-1); Bilirubin, Direct 0.33 mg/dL (0.00-0.30); Calcium,Total 10.8 mg/dL (8.5-10.1); Chloride 107 mmol/L (98-107); EST Glomerular Filtration Rate 64 mL/min (>60); Eosinophil# 0.06 X10^3/uL; Eosinophils% 0.6 % (0-5); Est Glom Filt Rate - Afr Amer 77 mL/min (>60); Estimated Creatinine Clearance 48.23 ml/min; Globulin 3.1 g/dL (2.2-4.2); Glucose 151 mg/dL (74-106); Hematocrit 43.9 % (37-47); Hemoglobin 14.4 g/dL (12.0-15.0); Lipase 46 U/L (73-393); Lymphocyte # 0.74 X10^3/ul (0.83-4.51); Lymphocyte % 7.4 % (19-41); Mean Corp Hgb Conc 32.8 g/dL (32-36); Mean Corpuscular Hgb 30.4 pg (27.0-32.0); Mean Corpuscular Volume 92.6 fL (81-99); Monocyte# 1.04 X10^3/uL; Monocyte% 10.4 % (0-10); NRBC Flagged by Analyzer 0 % (0-5); Neutrophil # 8.06 X10^3/uL (2.7-7.7); Platelet Count 191 K/mm3 (150-450); Potassium 3.4 mmol/L (3.5-5.1); Protein, Total 6.7 g/dL (6.4-8.2); RBC Distribution Width CV 13.2 % (11.6-14.6); Red Blood Count 4.74 M/mm3 (4.2-5.4); Sodium Level 139 mmol/L (136-145)
[2022-03-14 10:56] LABS: Bacteria 0 SEEN /hpf (None Seen); Mucous, Urine 0 SEEN /hpf (<or=2+)
[2022-03-14 10:59] LABS: Glucose, Dipstick Normal (Normal); Ketone-Dipstick Negative (Negative); Leukocyte Esterase-Dipstick 100 /ul (Negative); Nitrite-Dipstick Negative (Negative); Occult Blood-Urine 50 /ul (Negative); Protein-Dipstick 15 mg/dl (Negative); Specific Gravity, Urine 1.015 (1.002-1.030); Urine Bilirubin Dipstick Negative (Negative); Urine Urobilinogen Normal (Normal)
[2022-03-14 11:01] LABS: Color, Urine YELLOW (Yellow); Urine Clarity Clear (Clear)
[2022-03-14 11:17] LABS: Red Blood Cells-Urine 0-5 SEEN /hpf (0-5); Squamous Epithelial Cells - UA 0-5 SEEN /hpf (5-10); White Blood Cells 0-5 SEEN /hpf (0-5)
[2022-03-14 11:49] VITALS: BP 164/71; PULSE 70; RESP 16; O2SAT 95
== END 2022-03-14 12:08 | disposition home or self-care (01) ==
PROVIDERS: Emergency Provider Emergency Medicine; PCP Physician Assistant; Visit Provider Emergency Medicine
DX: R51.9 Headache, unspecified (principal); I48.0 Paroxysmal atrial fibrillation; E66.01 Morbid (severe) obesity due to excess calories; E78.00 Pure hypercholesterolemia, unspecified; I10 Essential (primary) hypertension; E03.9 Hypothyroidism, unspecified; Z68.37 Body mass index [BMI] 37.0-37.9, adult; Z79.899 Other long term (current) drug therapy; Z79.01 Long term (current) use of anticoagulants; Z79.82 Long term (current) use of aspirin; R10.9 Unspecified abdominal pain; M79.89 Other specified soft tissue disorders
CPT/HCPCS: 80048; 80076; 81001; 83690; 85025; 96361; 96374; 99284; J7030; A4216; J2405

== ENCOUNTER → 2022-09-27 | Outpatient (CLI) | payer MEDICARE, SELFPAY ==
[2022-09-27 11:08] VITALS: BP 162/81; PULSE 63; RESP 16; TEMP 37; O2SAT 98; BMI 38.2
[2022-09-27] MEDS: 0.9% NaCl Peripheral Flush Adult/Peds IV (12:04)
[2022-09-27] MEDS: 0.9% NaCl IVPB Med Flush (250 mL) 15 ML IV (12:05)
[2022-09-27 14:23] VITALS: BP 158/57; PULSE 57; O2SAT 99
== END | disposition home or self-care (01) ==
LOC: MEDOUTP 10:50
PROVIDERS: PCP Physician Assistant; Referring Provider Physician Assistant; Visit Provider Physician Assistant
DX: E21.0 Primary hyperparathyroidism (principal); E83.52 Hypercalcemia
CPT/HCPCS: 96365; 96366; J2430; J7040; J7050; A4216

== ENCOUNTER → 2022-11-03 | Outpatient (CLI) | payer MEDICARE, SELFPAY ==
--- NOTE | 2022-11-03 14:02 | US_ITS ---
EXAM: US SOFT TISSUES HEAD AND NECK, THYROID CLINICAL INDICATION: hyperparathyroidism, compare to parathyroid scan 2019 TECHNIQUE: Reed scale and color doppler imaging was performed of the thyroid gland. This report was created using [employer] report generation technology. COMPARISON: Nuclear medicine parathyroid scan dated December 03, 2019. FINDINGS: LEFT THYROID LOBE: Left lobe measures 3.3 x 1.2 x 1.7 cm. Homogeneous echotexture with normal vascularity. No thyroid nodules are present. RIGHT THYROID LOBE: 9 x 6 mm hypoechoic nodular density noted posterior and inferior to the right thyroid lobe consistent with suspected parathyroid adenoma. Right thyroid lobe measures 3.2 x 1.0 x 1.0 cm. No thyroid nodules are present. ISTHMUS: Normal. No thyroid nodules are present. US/Thyroid IMPRESSION: Right sided 9 x 6 mm nodule adjacent to the right thyroid gland consistent with parathyroid adenoma suspected on prior nuclear medicine exam. Electronically Signed: Gumaro Hay MD at 9:29 EST ,
== END | disposition home or self-care (01) ==
PROVIDERS: PCP Family Medicine; Referring Provider Internal Medicine Endocrinology, Diabetes & Metabolism; Visit Provider Internal Medicine Endocrinology, Diabetes & Metabolism
DX: E21.0 Primary hyperparathyroidism (principal)
CPT/HCPCS: 76536

== ENCOUNTER 2023-05-26 09:49 | Emergency (ER) | payer MEDICARE, SELFPAY ==
[2023-05-26 09:50] VITALS: BP 134/109; PULSE 114; RESP 22; TEMP 36.1; O2SAT 96
[2023-05-26 09:59] VITALS: BMI 38.5
--- NOTE | 2023-05-26 10:20 | CT_ITS ---
STUDY: CT ABDOMEN AND PELVIS WITHOUT CONTRAST REASON FOR EXAM: Female, 77 years old. Right-sided back pain with hematuria. RADIATION DOSAGE (If Supplied By Facility): CTDIvol = ( 20.68 ) mGy, DLP = ( 929.72 ) mGycm TECHNIQUE: Transaxial images were obtained from the dome of the diaphragm to the symphysis pubis without oral contrast, and without intravenous contrast. Sagittal and coronal images were reconstructed. Individualized dose optimization techniques were used for this CT. COMPARISON: Comparison is made with prior study dated November 20, 2019. FINDINGS: Increased markings at the left lung base suggestive of atelectasis and/or scarring. Coronary artery calcification. Normal liver. There are multiple gallstones. Normal spleen. Normal pancreas. Normal bilateral adrenal glands. There are nonobstructive right intrarenal calculi. The largest calculus measures 7.1 mm and is in the lower pole. There is evidence of a 8.3 mm calculus in the right renal pelvis causing a mild degree of right hydronephrosis. There is evidence of a staghorn calculus in the left renal pelvis with a mild degree of left hydronephrosis. There is also evidence of a nonobstructive calculus in the lower pole calyx of the right kidney measuring 1.6 cm. Normal visualized stomach. Normal small intestine. There are scattered colonic diverticula consistent with diverticulosis. The appendix is visualized and appears normal. Normal abdominal aorta. Normal inferior vena cava. Normal retroperitoneum. Normal urinary bladder. Enlarged fibroid uterus. There is a small umbilical hernia containing fat. There are diffuse degenerative changes of the visualized lumbar spine. Straightening of the normal lumbar lordosis. CT/Abdomen/Pelvis without Cont IMPRESSION: Bilateral nonobstructive intrarenal calculi worse on the left side where there is evidence of a staghorn calculus. 8.3 mm calculus in the right renal pelvis causing right hydronephrosis. Multiple gallstones. Enlarged fibroid uterus. Electronically Signed: Jomar Iqbal MD at 11:03 EDT ,
[2023-05-26] MEDS: Ondansetron 4 MG/2 ML Vial IV (10:25)
[2023-05-26] MEDS: 0.9% Normal Saline 1,000 ML 1000 ML IV (10:25)
[2023-05-26] MEDS: Morphine 4 MG/ML Syringe IV (10:25)
--- NOTE | 2023-05-26 10:30 | ED.VIS.GI ---
HPI HPI - GI History of Present Illness Chief Complaint: Flank Pain Informant: patient Abdominal Pain/Flank Pain Onset: Today Context: Sudden Onset Timing: Continuous Quality: Sharp Location: RLQ and LLQ Current Severity: Severe Maximum Severity: Severe Worsened by: Nothing Relieved by: Nothing Nausea/Vomiting/Emesis GI Symptom: Positive for Nausea and Vomiting Onset: Today Quality: Negative for Blood streaks, Coffee ground or Hematemesis Diarrhea/Melena/Hematochezia GI Symptom: Negative for Diarrhea, Melena or Hematochezia Associated Symptoms Associated Symptoms: Negative for Dysuria, Frequency or Hematuria Narrative Narrative: Patient presents with lower abdominal pain and low back pain that began today. Patient states it began suddenly this morning when she woke up. Patient states it is constant. Patient states it is sharp. Patient states it is over the lower abdomen but worse on the right. Patient states nothing makes it better nothing makes it worse. Patient admits to some nausea and vomiting. Patient denies any coffee-ground emesis or hematemesis. Patient states she was just having dry heaves. Patient denies diarrhea, melena, or hematochezia. Patient denies any dysuria, frequency, or hematuria. [facility] Medical History Arthritis Atrial fibrillation with RVR Essential (primary) hypertension Fatigue Fibromyalgia H/O radioactive iodine thyroid ablation Hematuria Hyperparathyroidism Hypothyroidism Morbid obesity with BMI of 40.0-44.9, adult Palpitations Paroxysmal atrial fibrillation Primary hyperparathyroidism Pure hypercholesterolemia Home Medications cinnamon bark 500 mg capsule 500 mg PO DAILY DM 03/10/18 [History Last Taken 11/03/18 23:00] Just Barley 1 cap PO QHS vitamin supplement 11/05/18 [History Last Taken 11/03/18 23:00] magnesium 250 mg tablet 250 mg PO DAILY 09/06/19 [History Last Taken Unknown] levothyroxine 112 mcg tablet 112 mcg PO DAILY 10/29/20 [History Last Taken Unknown] aspirin 325 mg tablet 325 mg PO DAILY heart health 05/29/21 [History Last Taken Unknown] amlodipine 5 mg tablet 5 mg PO DAILY 02/22/22 [History Last Taken Unknown] lactobacillus combination no.9 4 billion cell capsule (Adult 50 Plus Probiotic) 4,000 mmu cells PO DAILY 02/22/22 [History Last Taken Unknown] omega 3 35 mg-dha 25 mg-epa 5 mg-fish oil 113.5 mg chewable tablet ([facility] [place]-3 Gummy Fish) 1 tab PO DAILY 02/22/22 [History Last Taken Unknown] Nuban liquid irene 2 tsp PO DAILY 05/27/22 [History Last Taken Unknown] cholecalciferol (vitamin D3) 125 mcg (5,000 unit) capsule 125 mcg PO .M,W,F 10/28/22 [History Last Taken Unknown] metoprolol succinate 25 mg tablet,extended release 24 hr 12.5 mg (1/2 x 25 mg) PO MOWEFR 90 days #20 tabs 11/02/22 [Rx Last Taken Unknown] cascara sagrada 450 mg capsule 450 mg PO QMWF 12/07/22 [History Last Taken Unknown] hydrocodone-acetaminophen 5-325mg 5mg-325mg 1 tab PO Q6H PRN PRN Pain 3 days #10 TABLETS 05/26/23 [Rx Last Taken Unknown] Allergy/AdvReac Type Severity Reaction Status Date / Time Iodinated Contrast Media Allergy Severe Chest Verified 05/26/23 09:50 tightness NSAIDS (Non-Steroidal Allergy Intermediate unknown Verified 05/26/23 09:50 Anti-Inflamma tramadol Allergy Unknown unknown Verified 05/26/23 09:50 Penicillins Allergy Unknown Verified 05/26/23 09:50 lisinopril AdvReac Unknown unknown Verified 05/26/23 09:50 albuterol AdvReac Itching Verified 05/26/23 09:50 knee injections AdvReac Unknown Uncoded 12/07/22 13:37 Family History Brother Hypertension Diabetes Sister Diabetes Hypertension Other Arthritis Cancer Thyroid disorder Surgical History History of section Social History Smoking Status: Never smoker alcohol intake: never details: Rare substance use type: does not use what type of physical activity do you participate in: other ROS ROS ED Constitutional Constitutional ED: Denies chills or fever(s) Eyes Eyes: Denies blurry vision or change in vision ENT ENT ED: Denies rhinorrhea or sore throat Cardiovascular Cardiovascular: Denies chest pain or palpitations Respiratory/Chest Respiratory/Chest: Denies cough or dyspnea Gastrointestinal Gastrointestinal: Reports abdominal pain, nausea and vomiting Genitourinary Genitourinary ED: Denies dysuria or hematuria Musculoskeletal Musculoskeletal: Reports back pain; Denies neck pain Integumentary Denies abscess or rash Neurologic Neurologic: Denies headache(s) or weakness Allergic/Immunologic Allergic/Immunologic ED: Denies mouth swelling or urticaria EXAM Physical Exam Const Vital Signs: 05/26/23 09:50 05/26/23 10:09 Temperature 97 F L Temperature Source Temporal Pulse Rate 114 H Respiratory Rate 22 H Respiratory Effort Normal Non-Labored Respiratory Pattern Normal Blood Pressure 134/109 H Blood Pressure Mean 117 Pulse Ox 96 Oxygen Delivery Method Room Air Positive well nourished, well developed and obese General Appearance ED: well developed and NAD Nutritional Appearance: obese HEENT Reports moist mucous membranes Neck supple and no JVD Resp normal respiratory effort and clear to auscultation bilaterally Cardio Rate: tachycardic Rhythm: abnormal rhythm irregularly irregular GI non-distended Auscultation: hypoactive bowel sounds Palpation: soft and tender LLQ, RLQ and suprapubic; Negative for guarding or rebound tenderness present Extremity normal to inspection General Extremety ED: Negative for edema or tenderness General Extremity: Negative for edema Neuro oriented x3, CN's II-XII intact bilaterally and no sensory deficits noted Sensorium / Orientation: alert Motor Exam: strength 5/5 throughout Psych mental status grossly normal Skin no rashes or lesions noted MDM MDM MDM Narrative Medical decision making narrative: Differential diagnosis includes bowel obstruction, perforation, appendicitis, urinary tract infection, ureteral calculus, gastroenteritis, pancreatitis. CBC will be obtained to assess for leukocytosis and anemia. Comprehensive metabolic profile will be obtained to assess for electrolyte abnormality, renal function, and hepatic function. Lipase will be obtained to assess for pancreatitis. Urinalysis will be obtained to assess for urinary tract infection and hematuria. CT scan of the abdomen pelvis will be obtained to assess for ureteral calculus, bowel obstruction, and perforation. Lab Data Attestation: I reviewed the patient's lab results. Lab results narrative: CBC was reviewed. Hemoglobin was slightly elevated at 17.0 and hematocrit was 52.7. Platelets were normal. White blood cell count was normal. Comprehensive metabolic profile was reviewed. Glucose was slightly elevated at 174. Total bilirubin was slightly elevated at 1.6. Alkaline phosphatase was 144. BUN was slightly elevated at 20 and creatinine was 1.3. Anion gap was normal. Lipase was reviewed and was normal at 28. Urinalysis was reviewed. Leukocyte Estrace was 100 with greater than 100 red blood cells and 10-25 white blood cells. There were 0 bacteria seen. There is 0-5 epithelial cells. Labs: Laboratory Results - last 24 hr 05/26/23 05/26/23 10:02 11:00 WBC 9.2 RBC 5.50 H Hgb 17.0 H Hct 52.7 H MCV 95.8 MCH 30.9 MCHC 32.3 RDW Std Deviation 48.1 H RDW Coeff of Chris 13.5 Plt Count 181 MPV 10.5 Immature Gran % (Auto) 0.200 Neut % (Auto) 82.5 H Lymph % (Auto) 11.5 L [place] % (Auto) 5.3 Eos % (Auto) 0.3 Baso % (Auto) 0.2 Absolute Neuts (auto) 7.6 Absolute Lymphs (auto) 1.05 Nucleated RBC % 0 Sodium 142 Potassium 4.0 Chloride 109 H Carbon Dioxide 25.0 Anion Gap 8 BUN 20 H Creatinine 1.30 H Estim Creat Clear Calc 31.58 Est GFR (MDRD) Af Amer 51 L Est GFR (MDRD) Non-Af 42 L BUN/Creatinine Ratio 15.4 Glucose 174 H Calcium 12.0 H Total Bilirubin 1.60 H AST 31 ALT 25 Alkaline Phosphatase 144 H Total Protein 7.1 Albumin 4.0 Globulin 3.1 Albumin/Globulin Ratio 1.3 Lipase 28 Urine Color Yellow Urine Clarity Clear Urine pH 5.0 Ur Specific [place] 1.020 Urine Protein 100 H Urine Glucose (UA) Normal Urine Ketones 5 H Urine Occult Blood 250 H Urine Nitrite Negative Urine Bilirubin Negative Urine Urobilinogen Normal Ur Leukocyte Esterase 100 H Urine RBC > 100 SEEN Urine WBC 10-25 SEEN Ur Squamous Epith Cells 0-5 SEEN Urine Bacteria 0 SEEN Urine Mucus 0 SEEN Urine Yeast 1+ Radiography Diagnostic Testing: Clinical Impression(s) from Imaging Studies Abdomen/Pelvis CT 05/26/23 10:20 IMPRESSION: Bilateral nonobstructive intrarenal calculi worse on the left side where there is evidence of a staghorn calculus. 8.3 mm calculus in the right renal pelvis causing right hydronephrosis. Multiple gallstones. Enlarged fibroid uterus. Electronically Signed: Jomar Iqbal MD at 11:03 EDT , CT scan of the abdomen pelvis was obtained. There is an 8.3 mm calculus at the right renal pelvis causing right hydronephrosis. There are bilateral nonobstructing intrarenal calculi, worse on the left. There are multiple gallstones noted. There is enlarged fibroid uterus. This was interpreted by the radiologist and was also independently reviewed by myself. Treatment and Re-Evaluation :: Patient was given IV fluids, morphine, and Zofran. Patient is feeling better on reevaluation. Patient states her pain is starting to return however. Patient was given a dose of [place]. Patient was given a prescription for [place]. Patient states she would prefer to follow-up with Dr. Eagle since her has seen him in the past. Patient was instructed to call the office today or tomorrow to schedule appointment in 3 to 5 days. Patient was instructed to drink plenty of fluids. Patient was instructed return if worse in any way. Patient understood and was agreeable with the plan. All questions were answered. Discharge Plan Triage Chief Complaint: Flank Pain ED Provider: Jesse Demarco Dx/Rx/DC Orders Clinical Impression: Calculus of proximal right ureter Instructions: ED Kidney Stone w/ Colic Prescriptions: New hydrocodone-acetaminophen [hydrocodone-acetaminophen] 5-325 mg tablet 1 tab PO Q6H PRN PRN (Reason: Pain) 3 Days Qty: 10 0RF No Action aspirin 325 mg tablet 325 mg PO DAILY Hold Instructions: Order Changed magnesium 250 mg tablet 250 mg PO DAILY levothyroxine 112 mcg tablet 112 mcg PO DAILY amlodipine 5 mg tablet 5 mg PO DAILY Adult 50 Plus Probiotic 4 billion cell capsule 4,000 mmu cells PO DAILY Rx Instructions: administer with a meal [facility] [place]-3 Gummy Fish 35-25-5-113.5 mg tablet,chewable 1 tab PO DAILY Nuban liquid irene liquid 2 tsp PO DAILY cholecalciferol (vitamin D3) 125 mcg (5,000 unit) capsule 125 mcg PO .M,W,F cascara sagrada 450 mg capsule 450 mg PO QMWF cinnamon bark 500 mg capsule 500 mg PO DAILY Patient Comments: No longer taking Just Barley 1 cap PO QHS metoprolol succinate 25 mg tablet extended release 24 hr 12.5 mg PO MOWEFR 90 Days Qty: 20 3RF Rx Instructions: 12.5 mg PO daily on Tuesday, Tuesday, and Tuesday; Primary Care Provider: Kali Forrest Referrals: Kali Forrest MD [Primary Care Provider] - 5-7 Days Shelton Eagle MD [Med Staff - Active Staff] - 3-5 Days Disposition Disposition: Home, Self Care
[2023-05-26 10:46] LABS: Absolute Lymphocyte Count 1.05 X10^3/uL (0.83-4.51); Absolute Neutrophil Count 7.6 X10^3/uL (2.0-7.7); Basophil# 0.02 X10^3/uL; Basophil% 0.2 % (0-1); Eosinophil# 0.03 X10^3/uL; Eosinophils% 0.3 % (0-5); Hematocrit 52.7 % (37-47); Lymphocyte # 1.05 X10^3/ul (0.83-4.51); Lymphocyte % 11.5 % (19-41); Mean Corp Hgb Conc 32.3 g/dL (32-36); Mean Corpuscular Hgb 30.9 pg (27.0-32.0); Mean Corpuscular Volume 95.8 fL (81-99); Mean Platelet Vol. 10.5 fl (6.2-12.0); Monocyte# 0.49 X10^3/uL; Monocyte% 5.3 % (0-10); NRBC Flagged by Analyzer 0 % (0-5); Neutrophil # 7.56 X10^3/uL (2.7-7.7); Neutrophil % 82.5 % (47-70); Platelet Count 181 K/mm3 (150-450); RBC Distribution Width CV 13.5 % (11.6-14.6); RBC Distribution Width SD 48.1 fl (35.1-43.9); White Blood Count 9.2 K/mm3 (4.4-11.0)
[2023-05-26 10:52] LABS: ALB/GLOB Ratio 1.3 RATIO (0.9-2.4); AST(SGOT) 31 U/L (15-37); Alanine Aminotransfer ALT/SGPT 25 U/L (13-56); Alkaline Phosphatase 144 U/L (45-117); Anion Gap 8 (5-15); BUN 20 mg/dL (7-18); BUN/Creat Ratio 15.4 RATIO (10-20); Chloride 109 mmol/L (98-107); EST Glomerular Filtration Rate 42 mL/min (>60); Est Glom Filt Rate - Afr Amer 51 mL/min (>60); Estimated Creatinine Clearance 31.58 ml/min; Globulin 3.1 g/dL (2.2-4.2); Glucose 174 mg/dL (74-106); Lipase 28 U/L (13-75); Protein, Total 7.1 g/dL (6.4-8.2); Sodium Level 142 mmol/L (136-145)
[2023-05-26 11:08] LABS: Bacteria 0 SEEN /hpf (None Seen); Mucous, Urine 0 SEEN /hpf (<or=2+)
[2023-05-26 11:26] LABS: Color, Urine Yellow (Yellow); Glucose, Dipstick Normal (Normal); Ketone-Dipstick 5 mg/dl (Negative); Leukocyte Esterase-Dipstick 100 /ul (Negative); Nitrite-Dipstick Negative (Negative); Occult Blood-Urine 250 /ul (Negative); Protein-Dipstick 100 mg/dl (Negative); Urine Bilirubin Dipstick Negative (Negative); Urine Clarity Clear (Clear); Urine Urobilinogen Normal (Normal)
[2023-05-26 11:32] LABS: Red Blood Cells-Urine > 100 SEEN /hpf (0-5); White Blood Cells 10-25 SEEN /hpf (0-5)
[2023-05-26 11:42] LABS: Squamous Epithelial Cells - UA 0-5 SEEN /hpf (5-10)
[2023-05-26 11:43] LABS: Yeast-Urine 1+ /hpf (None Seen)
[2023-05-26 12:00] VITALS: RESP 16
[2023-05-26] MEDS: HYDROcodone Bitartrate/Apap 5/325 Tablet PO (12:57)
== END 2023-05-26 13:17 | disposition home or self-care (01) ==
PROVIDERS: Emergency Provider Emergency Medicine; PCP Family Medicine; Visit Provider Emergency Medicine
DX: N13.2 Hydronephrosis with renal and ureteral calculous obstruction (principal); E78.00 Pure hypercholesterolemia, unspecified; I10 Essential (primary) hypertension; E66.9 Obesity, unspecified
CPT/HCPCS: 74176; 80053; 81001; 83690; 85025; 87086; 96361; 96374; 96375; 99285; J7030; P9612; A4216; J2405

== ENCOUNTER 2023-05-30 12:26 | Inpatient (IN) | payer MEDICARE, SELFPAY ==
[2023-05-30] VITALS (10 sets, daily range): BP systolic 98–149; BP diastolic 63–103; PULSE 93–132; RESP 12–18; TEMP 36–36.8; O2SAT 92–100; BMI 37.3
--- NOTE | 2023-05-30 12:27 | HP.PCM_ITS ---
HPI - General General Date of Admission: 05/30/23 Date of Service: 05/30/23 Chief Complaint: Obstructing kidney stones HPI Narrative EMA ANAYA, is a 77 F who presents to my office with bilateral obstructing kidney stones and severe pain nausea vomiting poor tolerance of food for pain control patient was admitted today for pain control place stents this afternoon. [facility] Medical History Arthritis Atrial fibrillation with RVR Essential (primary) hypertension Fatigue Fibromyalgia H/O radioactive iodine thyroid ablation Hematuria Hyperparathyroidism Hypothyroidism Morbid obesity with BMI of 40.0-44.9, adult Palpitations Paroxysmal atrial fibrillation Primary hyperparathyroidism Pure hypercholesterolemia Home Medications cinnamon bark 500 mg capsule 500 mg PO DAILY DM 03/10/18 [History Last Taken 11/03/18 23:00] Just Barley 1 cap PO QHS vitamin supplement 11/05/18 [History Last Taken 11/03/18 23:00] magnesium 250 mg tablet 250 mg PO DAILY 09/06/19 [History Last Taken Unknown] levothyroxine 112 mcg tablet 112 mcg PO DAILY 10/29/20 [History Last Taken Unknown] aspirin 325 mg tablet 325 mg PO DAILY heart health 05/29/21 [History Last Taken Unknown] amlodipine 5 mg tablet 5 mg PO DAILY 02/22/22 [History Last Taken Unknown] lactobacillus combination no.9 4 billion cell capsule (Adult 50 Plus Probiotic) 4,000 mmu cells PO DAILY 02/22/22 [History Last Taken Unknown] omega 3 35 mg-dha 25 mg-epa 5 mg-fish oil 113.5 mg chewable tablet ([facility] [place]-3 Gummy Fish) 1 tab PO DAILY 02/22/22 [History Last Taken Unknown] Nuban liquid irene 2 tsp PO DAILY 05/27/22 [History Last Taken Unknown] cholecalciferol (vitamin D3) 125 mcg (5,000 unit) capsule 125 mcg PO .M,W,F 10/14 04/04 [History Last Taken Unknown] metoprolol succinate 25 mg tablet,extended release 24 hr 12.5 mg (1/2 x 25 mg) PO MOWEFR 90 days #20 tabs 11/02/22 [Rx Last Taken Unknown] cascara sagrada 450 mg capsule 450 mg PO QMWF 12/07/22 [History Last Taken Unknown] hydrocodone-acetaminophen 5-325mg 5mg-325mg 1 tab PO Q6H PRN PRN Pain 3 days #10 TABLETS 05/26/23 [Rx Last Taken Unknown] Allergy/AdvReac Type Severity Reaction Status Date / Time Iodinated Contrast Media Allergy Severe Chest Verified 05/26/23 09:50 tightness NSAIDS (Non-Steroidal Allergy Intermediate unknown Verified 05/26/23 09:50 Anti-Inflamma tramadol Allergy Unknown unknown Verified 05/26/23 09:50 Penicillins Allergy Unknown Verified 05/26/23 09:50 lisinopril AdvReac Unknown unknown Verified 05/26/23 09:50 albuterol AdvReac Itching Verified 05/26/23 09:50 knee injections AdvReac Unknown Uncoded 12/07/22 13:37 Family History Brother Hypertension Diabetes Sister Diabetes Hypertension Other Arthritis Cancer Thyroid disorder Surgical History History of section Social History Smoking Status: Never smoker alcohol intake: never details: Rare substance use type: does not use what type of physical activity do you participate in: other
[2023-05-30 12:54] LABS: Hematocrit 50.5 % (37-47); Mean Corp Hgb Conc 31.7 g/dL (32-36); Mean Corpuscular Hgb 31.4 pg (27.0-32.0); Mean Platelet Vol. 10.8 fl (6.2-12.0); Platelet Count 179 K/mm3 (150-450); RBC Distribution Width CV 13.3 % (11.6-14.6); RBC Distribution Width SD 48.9 fl (35.1-43.9); White Blood Count 8.1 K/mm3 (4.4-11.0)
[2023-05-30 13:04] LABS: Anion Gap 5 (5-15); BUN 28 mg/dL (7-18); BUN/Creat Ratio 10.8 RATIO (10-20); Calcium,Total 11.8 mg/dL (8.5-10.1); Chloride 110 mmol/L (98-107); Creatinine, Serum 2.59 mg/dL (0.55-1.02); EST Glomerular Filtration Rate 19 mL/min (>60); Est Glom Filt Rate - Afr Amer 23 mL/min (>60); Estimated Creatinine Clearance 15.85 ml/min; Glucose 122 mg/dL (74-106); Sodium Level 138 mmol/L (136-145)
--- NOTE | 2023-05-30 13:17 | EKG12_ITS ---
Test Reason : PRE OP Blood Pressure : / mmHG Vent. Rate : 108 BPM Atrial Rate : 086 BPM P-R Int : 000 ms QRS Dur : 084 ms QT Int : 310 ms P-R-T Axes : 000 -22 000 degrees QTc Int : 415 ms Atrial fibrillation Inferior infarct , age undetermined Anteroseptal infarct (cited on or before 05-NOV-2018) Abnormal ECG Confirmed by ECDRIC MORELAND, HARVINDER ([id number]), digital editor DARRYL BEAN ([id number]) on 06/07/2023 7:26:14 AM Referred By: Shelton Eagle Confirmed By:HARVINDER STEELE MD
[2023-05-30] MEDS: Metoprolol(XL)Succ 25 MG Tablet 12.5 MG PO (13:30)
[2023-05-30] MEDS: 0.9% Saline Lock 10 ML Syringe IV ×2 (13:39→18:58)
[2023-05-30] MEDS: 0.9% Normal Saline 1,000 ML 50 ML IV (13:39)
[2023-05-30 14:46] LABS: Thyroid Stim Hormone (TSH) 5.29 uIU/mL (0.358-3.74)
[2023-05-30] MEDS: Cefazolin 2 GM in 0.9% Normal Saline 100 ML IV (17:05)
[2023-05-30] MEDS: Lubricating Jelly 60 GM Tube 30 GM (17:17)
[2023-05-30] MEDS: Lidocaine Jelly 2% 20 ML Syringe (URO-JET) 1 APPLIC (17:17)
--- NOTE | 2023-05-30 17:31 | PCM.OPRPT ---
Report of Operation Date of Procedure: 05/30/23 Pre-Operative Diagnosis: Bilateral staghorn calculi Post-Operative Diagnosis: The same Surgery/Procedure Performed:: Cystoscopy right retrograde pyelogram right stent placement, left retrograde pyelogram left stent placement Description of Surgical Findings:: Patient was taken back to the operating room after induction of general anesthesia, the patient was placed in dorsolithotomy position. The urethra and genitals were prepped and draped in usual sterile fashion. Using a 21 [place] rigid cystourethroscope the entire length of the urethra was normal then went into the bladder. Identified the trigone the left and right ureteral orifice. I then cannulated the Right orifice and advanced a wire up into the kidney. I then backloaded a 5 [place]e open ended catheter over the wire and injected contrast to delineate the anatomy. After the retrograde was performed I then used fluoroscopic images and guidance to advanced a wire up into the kidney and over the 0.038 glidewire I advanced a 6 [place] by 26 cm double pigtail stent. I then pulled the 0.038 Glidewire off and the stent coiled in the kidney bladder good position. Identified the trigone the left and right ureteral orifice. I then cannulated the Left orifice and advanced a wire up into the kidney. I then backloaded a 5 [place]e open ended catheter over the wire and injected contrast to delineate the anatomy. After the retrograde was performed I then used fluoroscopic images and guidance to advanced a wire up into the kidney and over the 0.038 glidewire I advanced a 6 [place]e by 26 cm double pigtail stent. I then pulled the 0.038 Glidewire off and the stent coiled in the kidney bladder good position. The bladder was then drained. We confirmed the position of the stent by fluoroscopy. Patient anesthetic was reversed and was taken back to the PACU in good condition. Will plan for staged b/l procedures. Type of Anesthesia: General Drains: stent b/l Admit VTE Documentation VTE Present on Admission: No VTE Mechan Device Prophylaxis: SCD's VTE Pharm Prophylaxis ordered?: No
[2023-05-30] MEDS: Morphine 2 MG/ML Syringe IV (18:58)
--- NOTE | 2023-05-30 21:03 | CON.PCM.HO_ITS ---
Assessment & Plan Assessment/Plan (1) Bilateral kidney stones: (2) Essential (primary) hypertension: (3) Paroxysmal atrial fibrillation: PLAN: Plan Bilateral kidney stones status post Cystoscopy right retrograde pyelogram right stent placement, left retrograde pyelogram left stent placement Abdomen/pelvis CT on 05/26/2023 showed bilateral nonobstructive intrarenal calculi worse in the left side where there is evidence of a staghorn calculus a 23 mm calculus in the right renal pelvis causing right-sided nephrosis multiple gallstones. Enlarged fibroid uterus. Monitored by primary. Hypertension Blood pressure is not within goal Home blood pressure medication continued. As needed hydralazine ordered. Trend blood pressure and adjust blood pressure medications. Atrial fibrillation A-fib with controlled rate. Metoprolol continued. Not on any home anticoagulation. Placed patient on telemetry monitoring. DVT prophylaxis SCDs ordered Time spent in the patient's overall evaluation,decision-making process, review of diagnostic data, adjustment of management, discussion with other providers, nursing nursing and ancillary staff involved in patient's care documentation,25 minutes. Code: 22596 HPI Consult Data Date of Consult: 05/31/23 HPI Narrative Reason for Consultation: Medical management HPI Narrative: EMA ANAYA, is a 77 F with a significant history of proximal A-fib; hypothyroidism; essential hypertension; and primary hyperparathyroidism who is postop days 0 for Cystoscopy right retrograde pyelogram right stent placement, left retrograde pyelogram left stent placement for stent secondary to bilateral obstructive kidney stones (staghorn calculi). The patient has pain in the bilateral groin that radiates to her back. She reports nausea and vomiting. Patient reported that after stent placement her pain has reduced. Internal service been consulted for medical management which include chronic medical conditions involving elevated blood pressure and atrial fibrillation [facility] Medical History Arthritis Atrial fibrillation with RVR Cataract Essential (primary) hypertension Fatigue Fibromyalgia H/O radioactive iodine thyroid ablation Hematuria Hyperparathyroidism Hypothyroidism Morbid obesity with BMI of 40.0-44.9, adult Palpitations Paroxysmal atrial fibrillation Primary hyperparathyroidism Pure hypercholesterolemia Vision loss of left eye Vision loss of right eye Home Medications cinnamon bark 500 mg capsule 500 mg PO DAILY DM 03/10/18 [History Last Taken 11/03/18 23:00] Just Barley 2 cap PO QHS vitamin supplement 11/05/18 [History Last Taken 11/03/18 23:00] magnesium 250 mg tablet 250 mg PO DAILY 09/06/19 [History Last Taken Unknown] levothyroxine 112 mcg tablet 112 mcg PO DAILY 10/29/20 [History Last Taken Unknown] aspirin 325 mg tablet 325 mg PO DAILY heart health 05/29/21 [History Last Taken Unknown] amlodipine 5 mg tablet 5 mg PO DAILY 02/22/22 [History Last Taken Unknown] lactobacillus combination no.9 4 billion cell capsule (Adult 50 Plus Probiotic) 4,000 mmu cells PO DAILY 02/22/22 [History Last Taken Unknown] omega 3 35 mg-dha 25 mg-epa 5 mg-fish oil 113.5 mg chewable tablet ([facility]-3 Gummy Fish) 1 tab PO DAILY 02/22/22 [History Last Taken Unknown] Nuban liquid irene 2 tsp PO DAILY 05/27/22 [History Last Taken Unknown] cholecalciferol (vitamin D3) 125 mcg (5,000 unit) capsule 125 mcg PO .M,W,F 10/28/22 [History Last Taken 05/25/23] metoprolol succinate 25 mg tablet,extended release 24 hr 12.5 mg (1/2 x 25 mg) PO MOWEFR 90 days #20 tabs 11/02/22 [Rx Last Taken 05/25/23] cascara sagrada 450 mg capsule 450 mg PO QMWF PRN constipation 12/07/22 [History Last Taken Unknown] hydrocodone-acetaminophen 5-325mg 5mg-325mg 1 tab PO Q6H PRN PRN Pain 3 days #10 TABLETS 05/26/23 [Rx Last Taken 05/30/23 08:00] ondansetron 4 mg disintegrating tablet 4 mg translingual Q6H PRN nausea and vomiting 05/30/23 [History Last Taken 05/30/23 07:30] Allergy/AdvReac Type Severity Reaction Status Date / Time Iodinated Contrast Media Allergy Severe Chest Verified 05/26/23 09:50 tightness NSAIDS (Non-Steroidal Allergy Intermediate unknown Verified 05/30/23 13:04 Anti-Inflamma tramadol Allergy Unknown unknown Verified 05/30/23 13:04 Penicillins Allergy Unknown Verified 05/30/23 13:04 lisinopril AdvReac Unknown unknown Verified 05/30/23 13:04 albuterol AdvReac Itching Verified 05/30/23 13:04 knee injections AdvReac Unknown Uncoded 12/07/22 13:37 Family History Brother Hypertension Diabetes Sister Diabetes Hypertension Other Arthritis Cancer Thyroid disorder Surgical History History of section Social History Smoking Status: Never smoker alcohol intake: never details: Rare substance use type: does not use what type of physical activity do you participate in: other ROS ROS Narrative Pertinent positives and pertinent negatives as noted in HPI. All other systems were reviewed and are negative Physical Exam Narrative Physical exam: General: Well-nourished, well-developed. Head: Normocephalic, atraumatic, no tenderness Eyes: Vision is grossly intact. EOMI ENT, no trauma, moist mucous membranes, no rhinorrhea Neck: Nontender, No thyromegaly. CVS: Regular rate and rhythm. S1-S2 present. No murmur, gallop or rub. Respiratory : clear to auscultation bilaterally, chest wall nontender Abdomen: Soft, nontender, nondistended, normal bowel sounds, no masses : Deferred Back: Nontender, no CVA tenderness, no midline spinal tenderness, deformities, step-offs Extremities: Nontender full range of motion, no trauma Skin: Normal color, no trauma, abrasions Neuro: Alert, oriented, cranial nerves II through XII grossly intact. Psychiatry: Normal mood. Normal affect. Not depressed. Not anxious. Lab / Micro Data 05/30/23 12:40 05/30/23 12:40 Labs: Laboratory Results - last 24 hr 05/30/23 12:40: WBC 8.1, RBC 5.10, Hgb 16.0 H, Hct 50.5 H, MCV 99.0, MCH 31.4, MCHC 31.7 L, RDW Std Deviation 48.9 H, RDW Coeff of Chris 13.3, Plt Count 179, MPV 10.8, Sodium 138, Potassium 4.0, Chloride 110 H, Carbon Dioxide 23.0, Anion Gap 5, BUN 28 H, Creatinine 2.59 H, Estim Creat Clear Calc 15.85, Est GFR (MDRD) Af Amer 23 L, Est GFR (MDRD) Non-Af 19 L, BUN/Creatinine Ratio 10.8, Glucose 122 H, Calcium 11.8 H, TSH 5.29 H Charges/Coding Visit Charges Office Visits / Consults: 95735 OV L3 Est
[2023-05-31 04:10] VITALS: BP 136/92; PULSE 111; RESP 18; TEMP 36.3; O2SAT 98
[2023-05-31] MEDS: 0.9% Normal Saline 1,000 ML 50 ML IV ×2 (04:24→21:59)
[2023-05-31] MEDS: Levothyroxine 112 MCG Tablet PO (04:24)
[2023-05-31 06:26] LABS: Hematocrit 46.2 % (37-47); Hemoglobin 14.7 g/dL (12.0-15.0); Mean Corp Hgb Conc 31.8 g/dL (32-36); Mean Corpuscular Hgb 30.9 pg (27.0-32.0); Mean Corpuscular Volume 97.1 fL (81-99); Mean Platelet Vol. 10.7 fl (6.2-12.0); Platelet Count 172 K/mm3 (150-450); RBC Distribution Width CV 13.2 % (11.6-14.6); RBC Distribution Width SD 47.4 fl (35.1-43.9); Red Blood Count 4.76 M/mm3 (4.2-5.4); White Blood Count 6.6 K/mm3 (4.4-11.0)
--- NOTE | 2023-05-31 07:09 | PCM.PN.HOSP ---
Reason for Visit Reason for Visit: Diagnoses Essential (primary) hypertension (05/30/23) Paroxysmal atrial fibrillation (05/30/23) Calculus of kidney (05/30/23) Subjective Subjective still with abdominal pain. Objective Data Objective Data Vital Signs: Vital Signs Temp Pulse Resp BP Pulse Ox O2 Del Method O2 Flow Rate 36.3 C L 111 H 18 136/92 H 98 Room Air 2 05/31/23 04:10 05/31/23 04:10 05/31/23 04:10 05/31/23 04:10 05/31/23 04:10 05/31/23 04:10 05/30/23 22:26 Oxygen Flow Rate (L/min) 2 Oxygen Delivery Method Room Air Weight: 101.6 kg Body Mass Index (BMI) 37.3 Intake & Output: Intake and Output for Last 24 Hours 05/29/23 05/30/23 05/31/23 23:59 23:59 23:59 Intake Total 562.5 / 562.5 485 / 485 Output Total 100 / 100 Balance 462.5 / 462.5 485 / 485 Lab / Micro Data 05/31/23 06:10 05/30/23 12:40 Labs: Laboratory Results - last 24 hr 05/30/23 12:40: WBC 8.1, RBC 5.10, Hgb 16.0 H, Hct 50.5 H, MCV 99.0, MCH 31.4, MCHC 31.7 L, RDW Std Deviation 48.9 H, RDW Coeff of Chris 13.3, Plt Count 179, MPV 10.8, Sodium 138, Potassium 4.0, Chloride 110 H, Carbon Dioxide 23.0, Anion Gap 5, BUN 28 H, Creatinine 2.59 H, Estim Creat Clear Calc 15.85, Est GFR (MDRD) Af Amer 23 L, Est GFR (MDRD) Non-Af 19 L, BUN/Creatinine Ratio 10.8, Glucose 122 H, Calcium 11.8 H, TSH 5.29 H 05/31/23 06:10: WBC 6.6, RBC 4.76, Hgb 14.7, Hct 46.2, MCV 97.1, MCH 30.9, MCHC 31.8 L, RDW Std Deviation 47.4 H, RDW Coeff of Chris 13.2, Plt Count 172, MPV 10.7 Physical Exam Const alert and no apparent distress Resp normal respiratory effort, no retractions, no use of accessory muscles and clear to auscultation bilaterally Cardio regular rate, regular rhythm, S1 normal heart sound and S2 normal heart sound GI normal to inspection, nondistended, normoactive bowel sounds and soft to palpation Assessment & Plan Assessment/Plan (1) Bilateral kidney stones: PLAN: Bilateral kidney stones status post Cystoscopy right retrograde pyelogram right stent placement, left retrograde pyelogram left stent placement Abdomen/pelvis CT on 05/26/2023 showed bilateral nonobstructive intrarenal calculi worse in the left side where there is evidence of a staghorn calculus a 23 mm calculus in the right renal pelvis causing right-sided nephrosis multiple gallstones. (2) Essential (primary) hypertension: PLAN: Hypertension Blood pressure is not within goal Continue amlodipine, metoprolol Trend blood pressure and adjust blood pressure medications. (3) Paroxysmal atrial fibrillation: PLAN: On metoprolol succinate Reviewed cardiology notes. Pt has not been on anticoagulation. Initially, pt was pondering the cost of Eliquis v warfarin. Then in November, she was was waiting on parathyroid surgery. [id number] of 4. I asked pt about anticoagulation and her high stroke risk, she would quickly change the subject and not answer directly. This has been an ongoing issue. Her evasiveness indicates she is not willing to use anticoagulation at this time. Hopefully in the future she will reconsider. PLAN: Plan Hypothyroidism: levothyroxine DVT prophylaxis SCDs ordered Charges/Coding Visit Charges Inpatient E&M: 08864 Subs Hosp L2
[2023-05-31 09:11] VITALS: BP 140/86; PULSE 103; RESP 18; TEMP 36.8; O2SAT 96
[2023-05-31] MEDS: Bisacodyl 5 MG Tablet 10 MG PO (10:04)
[2023-05-31] MEDS: Acetaminophen 500 MG Tablet 1000 MG PO ×2 (10:04→21:53)
--- NOTE | 2023-05-31 12:52 | PCM.PN.GU ---
Subjective Subjective 77-year-old female status post bilateral stent placement for bilateral obstruction of both kidneys she is doing better and clinically stable now plan to take her surgery tomorrow for right ureteroscopy laser lithotripsy of stones and right stent placement. Left side she has super very large stones and may need a percutaneous procedure to remove all the stones this will be done later. So for now she will be n.p.o. at midnight we will get consent and we will proceed with right ureteroscopy laser lithotripsy of right kidney stones and right stent placement Objective Data Objective Data Vital Signs: Vital Signs Temp Pulse Resp BP Pulse Ox O2 Del Method O2 Flow Rate 98.2 F 103 H 18 140/86 H 96 Room Air 2 05/31/23 09:11 05/31/23 09:11 05/31/23 09:11 05/31/23 09:11 05/31/23 09:11 05/31/23 09:30 05/30/23 22:26 Oxygen Flow Rate (L/min) 2 Oxygen Delivery Method Room Air Weight: 101.6 kg Body Mass Index (BMI) 37.3 Intake & Output: Intake and Output for Last 24 Hours 05/29/23 05/30/23 05/31/23 23:59 23:59 23:59 Intake Total 562.5 / 562.5 485 / 485 Output Total 100 / 100 Balance 462.5 / 462.5 485 / 485 Lab / Micro Data 05/31/23 06:10 05/30/23 12:40 Labs: Laboratory Results - last 24 hr 05/30/23 12:40: WBC 8.1, RBC 5.10, Hgb 16.0 H, Hct 50.5 H, MCV 99.0, MCH 31.4, MCHC 31.7 L, RDW Std Deviation 48.9 H, RDW Coeff of Chris 13.3, Plt Count 179, MPV 10.8, Sodium 138, Potassium 4.0, Chloride 110 H, Carbon Dioxide 23.0, Anion Gap 5, BUN 28 H, Creatinine 2.59 H, Estim Creat Clear Calc 15.85, Est GFR (MDRD) Af Amer 23 L, Est GFR (MDRD) Non-Af 19 L, BUN/Creatinine Ratio 10.8, Glucose 122 H, Calcium 11.8 H, TSH 5.29 H 05/31/23 06:10: WBC 6.6, RBC 4.76, Hgb 14.7, Hct 46.2, MCV 97.1, MCH 30.9, MCHC 31.8 L, RDW Std Deviation 47.4 H, RDW Coeff of Chris 13.2, Plt Count 172, MPV 10.7
--- NOTE | 2023-05-31 13:10 | CHAPLAIN ---
Type of Pastoral Visit _x__ Initial Visit ___ Follow-up Visit ___ On-call Visit ___ General Patient Visit ___ Spiritual Assessment ___ Family Conference ___ Bereavement ___ Rapid Response ___ Code Blue ___ Other (describe below) Pastoral Care Referral From _x__ Patient ___ Family ___ Nurse ___ Physician ___ [facility] ___ Alternative Energy Engineer ___ Other (describe below) Sacrament/Intervention _x__ Active listening ___ Anointing ___ Tenriism ___ Bereavement ___ Communion ___ Rosaura exploration ___ ___ Life review _x__ Prayer ___ Reconciliation ___ Sacrament of Sick _x__ Supportive presence ___ Wedding ___ Other (describe below) Pastoral Comments patient is welcoming; pt has several family members in the room for support; pt is talkative in general and welcomes a prayer
[2023-05-31 13:30] LABS: Anion Gap 4 (5-15); BUN 26 mg/dL (7-18); BUN/Creat Ratio 12.1 RATIO (10-20); Calcium,Total 10.8 mg/dL (8.5-10.1); Chloride 111 mmol/L (98-107); Creatinine, Serum 2.14 mg/dL (0.55-1.02); EST Glomerular Filtration Rate 24 mL/min (>60); Est Glom Filt Rate - Afr Amer 29 mL/min (>60); Estimated Creatinine Clearance 19.18 ml/min; Glucose 125 mg/dL (74-106); Potassium 4.2 mmol/L (3.5-5.1); Sodium Level 140 mmol/L (136-145)
[2023-05-31 13:59] VITALS: BP 131/56; PULSE 88; RESP 18; TEMP 36.7; O2SAT 95
[2023-05-31 17:54] VITALS: BP 133/85; PULSE 105; RESP 18; TEMP 36.6; O2SAT 97
[2023-05-31 21:20] VITALS: PULSE 178
[2023-05-31 21:42] VITALS: BP 132/91; PULSE 116; RESP 18; TEMP 36.4; O2SAT 94
[2023-05-31] MEDS: Ciprofloxacin 400 MG/200 ML BAG 200 MG IV (22:00)
[2023-06-01] VITALS (12 sets, daily range): BP systolic 135–159; BP diastolic 85–110; PULSE 89–138; RESP 16–18; TEMP 36.1–37.1; O2SAT 93–100
[2023-06-01] MEDS: Metoprolol(XL)Succ 25 MG Tablet 12.5 MG PO (00:55)
--- NOTE | 2023-06-01 01:13 | NURSING ---
Patient's HR has been tachy between 120-168 at rest, so went ahead and gave her metoprolol that was scheduled for noon. She will go to surgery today with Dr. Eagle.
[2023-06-01] MEDS: Levothyroxine 112 MCG Tablet PO (04:29)
[2023-06-01 06:41] LABS: Hematocrit 44.3 % (37-47); Hemoglobin 14.2 g/dL (12.0-15.0); Mean Corp Hgb Conc 32.1 g/dL (32-36); Mean Corpuscular Hgb 30.5 pg (27.0-32.0); Mean Corpuscular Volume 95.3 fL (81-99); Mean Platelet Vol. 10.4 fl (6.2-12.0); Platelet Count 201 K/mm3 (150-450); RBC Distribution Width CV 13.2 % (11.6-14.6); RBC Distribution Width SD 46.9 fl (35.1-43.9); Red Blood Count 4.65 M/mm3 (4.2-5.4); White Blood Count 5.2 K/mm3 (4.4-11.0)
--- NOTE | 2023-06-01 07:36 | PCM.PN.GU ---
Subjective Subjective Patient admitted for bilateral obstructing kidney stones she underwent bilateral stent placement she is now on for surgery for today for right ureteroscopy laser lithotripsy of stones and stent replacement. After we do the surgery on the right side probably will discharge the patient for outpatient surgery for the left side she will need a percutaneous approach I do not have the equipment available to do that which is has to be brought into the hospital. Objective Data Objective Data Vital Signs: Vital Signs Temp Pulse Resp BP Pulse Ox O2 Del Method O2 Flow Rate 97.9 F 110 H 18 143/93 H 93 Room Air 2 06/01/23 04:15 06/01/23 04:15 06/01/23 04:15 06/01/23 04:15 06/01/23 04:15 06/01/23 04:15 05/30/23 22:26 Oxygen Flow Rate (L/min) 2 Oxygen Delivery Method Room Air Weight: 101.6 kg Body Mass Index (BMI) 37.3 Intake & Output: Intake and Output for Last 24 Hours 05/30/23 05/31/23 06/01/23 23:59 23:59 23:59 Intake Total 562.5 / 562.5 2614.17 / 2614.17 Output Total 100 / 100 1900 / 1900 Balance 462.5 / 462.5 2614.17 / 1564.17 -1900 / -1900 Lab / Micro Data 06/01/23 06:10 05/31/23 06:10 Labs: Laboratory Results - last 24 hr 05/31/23 06:10: Sodium 140, Potassium 4.2, Chloride 111 H, Carbon Dioxide 25.0, Anion Gap 4 L, BUN 26 H, Creatinine 2.14 H, Estim Creat Clear Calc 19.18, Est GFR (MDRD) Af Amer 29 L, Est GFR (MDRD) Non-Af 24 L, BUN/Creatinine Ratio 12.1, Glucose 125 H, Calcium 10.8 H 06/01/23 06:10: WBC 5.2, RBC 4.65, Hgb 14.2, Hct 44.3, MCV 95.3, MCH 30.5, MCHC 32.1, RDW Std Deviation 46.9 H, RDW Coeff of Chris 13.2, Plt Count 201, MPV 10.4
--- NOTE | 2023-06-01 10:51 | CASEMGMT ---
RN CM NOTE: RN CM to room for initial RN CM assessment. Pt is out of room at this time. RN CM to complete assessment at a later time. Ifeoma BSN RN CM
[2023-06-01] MEDS: Lactated Ringers 1,000 ML 15 ML IV (10:55)
--- NOTE | 2023-06-01 12:15 | PCM.OPRPT ---
Report of Operation Date of Procedure: 06/01/23 Pre-Operative Diagnosis: Right obstructing kidney stone status post stent Post-Operative Diagnosis: The same Surgery/Procedure Performed:: Cystoscopy, balloon dilation of the ureter, placement of an access sheath in the right side, right ureteroscopy laser lithotripsy of stones multiple in the right kidney. And right stent placement Description of Surgical Findings:: This is a patient who presented to the hospital with bilateral obstruction she underwent stent placement a day or 2 ago she now presents to laser the stones on the right side, Plan treatment for an obstructing ureter calculi and renal calculi. I discussed with the patient how the surgery would be performed and we reviewed the risks and benefits of the surgery. The risk and benefits include the risk of failure to remove the stone completely and that the patient may need multiple procedures. We discussed the risk of an infection, the risk of bleeding. We discussed the very rare risk of serious complicated injury to the ureter. The patient understands that if the stone is not able to be removed safely that we may abort the procedure and place a stent. After full discussion and all questions address with the patient the consent form was signed the side was marked appropriately and the patient was taken back to the operating room for the procedure. The patient was taken back to the operating room. After induction of anesthesia by the anesthesiology team the patient was placed in dorsolithotomy position. The genitals were prepped and draped in usual sterile fashion. I went into the bladder with a 21 [place] rigid cystourethroscope through the urethra. Upon entering the bladder I inspected the trigone the left and right ureteral orifice and the bladder itself. I then cannulated the Right ureteral orifice and advanced a 0.038 Glidewire up into the kidney. Then over the Glidewire I advanced a 5 Fr Ureteral catheter and performed a retrograde pyelogram with about 10cc of contrast, to delineate the anatomy and identify the stone location. Then a ureteral balloon dilator was advanced over the wire and the distal ureter was balloon dilated with a 12 Fr x 5cm balloon dilator. After 3 minutes of dilating the ureter the balloon was backloaded off the 0.038 glidewire over the 0.038 guidewire I went in with the flexible 7.5fr ureteroscope. I was able to go inside with the 7.5Fr utereroscope and I pulled out the guidewire and then through the ureteroscope I engage the stones in the proximal right ureter with laser lithotripsy using a 270miron laser fiber with energy setting of 6 Hertz and 0.6 J until the stone was lasered into tiny little pieces that should pass on their own. And also lasered multiple stones that were in the right kidney and multiple calyces with the laser until all the stones were treated small little pieces. A retrograde pyelogram was performed with 10cc of contrast and no extravasation of contrast or perforation was identified in the ureter there was some mild irritation of the ureter where the stone was located. I then backed out of the ureter left the wire in place and then over the 0.038 guidewire I placed a double coiled pigtail ureteral stent. The ureteral stent was advanced over the 0.038 guidewire under direct fluoroscopic guidance and direct cystoscopic visual guidance, once the stent was in good position I pulled the wire and the stent coiled in the kidney and bladder in good position. I then drained the patient's bladder and the cystoscope was removed and the patient was taken back to the recovery room in good position. Surgeon: Shelton Eagle Type of Anesthesia: General Drains: right stent Estimated Blood Loss (mL): 0 Admit VTE Documentation VTE Present on Admission: No VTE Mechan Device Prophylaxis: SCD's VTE Pharm Prophylaxis ordered?: No
--- NOTE | 2023-06-01 16:39 | CASEMGMT ---
RN?CM?IMPORT/EXPORT AGENT?CM?to room to meet with patient for initial transition planning/care coordination?assessment.?RN?CM?introduced self and role at [facility].? Pt voices understanding and consents to?assessment?at this time.? Pt resting in bed in no distress at this time.? @ bedside. Pt is A/O at this time and answers all questions appropriately.?? Care providers, pharmacy, and demographics verified/updated at this time. PCP: Dr Forrest Specialists: Dr Eagle-urology, Dr De La Rosa-cardiology, Dr Grider-endocrinology, Dr Simon-surgeon Preferred [facility]acy: [facility] Insurance:[employer] Prescription Benefit:?Yes Living Will/HPOA:?Pt states has both LW and HCPOA, who is her as her agent and dtr, Anastasiya, as 1st alternative. LNOK: , Steven. 3 adult children Living Arrangements: Lives w/her in one-story home w/basement w/2 steps to enter. Independent w/ADL's. and pt share home tasks. Transportation:?Pt states drives self and states no transportation concerns at this time.? also drives and does most of the driving. DME: ?States has the following DME:?shower chair, 3 walkers ? Pt states no need for further DME at this time.? HHC/SNF: No hx of either. Discussed HHC and questions answered. Pt declines wanting HHC at this time. Made aware, if she changes her mind once returning home, to discuss this w/her PCP. She voices understanding. Pt wishes to return home and states has no concerns with going home at time of discharge.? CM?to follow for home oxygen needs and any further discharge planning/needs.? Pt voices no further concerns/needs at this time.? Advised pt to ask for?CM?if any further questions/concerns/needs arise.? Voices understanding. PLAN:??Home w/spousal support and discharge plans in place. Ifeoma MIKEN?RN?CM
--- NOTE | 2023-06-01 18:07 | PN.HOSP_ITS ---
Reason for Visit Reason for Visit: Diagnoses Essential (primary) hypertension (05/31/23) Paroxysmal atrial fibrillation (05/31/23) Calculus of kidney (05/31/23) Subjective Subjective Patient was seen and examined today, she underwent cystoscopy and right ureteroscopy with laser lithotripsy of multiple stones in the right kidney and a right stent placement. At this time patient does not complain of any flank pain. I talked with her at length about her atrial fibrillation, she states that she goes to a prison psychiatrist and has had discussions with them about anticoagulation, she states she was placed on an anticoagulant 1 time but had an allergic reaction to it. Her was in the room at the time that I had this discussion with her. Objective Data Objective Data Vital Signs: Vital Signs Temp Pulse Resp BP Pulse Ox O2 Del Method O2 Flow Rate 98.1 F 100 16 148/92 H 96 Nasal Cannula 2 06/01/23 15:49 06/01/23 15:49 06/01/23 15:49 06/01/23 15:49 06/01/23 15:49 06/01/23 16:00 06/01/23 16:00 Oxygen Flow Rate (L/min) 2 Oxygen Delivery Method Nasal Cannula Weight: 101.6 kg Body Mass Index (BMI) 37.3 Intake & Output: Intake and Output for Last 24 Hours 05/30/23 05/31/23 06/01/23 23:59 23:59 23:59 Intake Total 562.5 / 562.5 2614.17 / 2614.17 610.83 / 610.83 Output Total 100 / 100 1900 / 1900 Balance 462.5 / 462.5 2614.17 / 1564.17 -1289.17 / -1289.17 Lab / Micro Data 06/01/23 06:10 05/31/23 06:10 Labs: Laboratory Results - last 24 hr 06/01/23 06:10: WBC 5.2, RBC 4.65, Hgb 14.2, Hct 44.3, MCV 95.3, MCH 30.5, MCHC 32.1, RDW Std Deviation 46.9 H, RDW Coeff of Chris 13.2, Plt Count 201, MPV 10.4 Physical Exam Const alert, oriented x3, no apparent distress, average body habitus and healthy appearing General Appearance: cooperative, well kempt and well developed Orientation / Consciousness: awake, oriented to person, oriented to place and oriented to time HEENT normocephalic, head/scalp atraumatic and moist oral mucous membranes Eyes PERRL, EOMs intact bilaterally and conjunctivae normal Neck supple, no JVD, thyroid normal and no carotid bruits General: trachea midline Resp normal respiratory effort, no retractions, no use of accessory muscles and clear to auscultation bilaterally Auscultation: Negative for rales, rhonchi or wheezes Cardio S1 normal heart sound, S2 normal heart sound, no murmurs, no rub and no gallops Cardio Narrative: Heart rate and rhythm is irregular GI normal to inspection, nondistended, normoactive bowel sounds, soft to palpation, non-tender and non-distended Extremity no clubbing, cyanosis or edema Skin no rashes or lesions noted General Skin Exam: no breakdown Neuro oriented x3, CN's II-XII intact bilaterally, moves all extremities, no focal motor deficits and no sensory deficits noted Sensorium / Orientation: awake and alert Speech: speech normal Psych affect normal Assessment & Plan Assessment/Plan (1) Bilateral kidney stones: PLAN: Plan 1. Paroxysmal atrial fibrillation-patient's rate appears controlled at this time, again I talked with her about anticoagulation, she will need to discuss this again with her prison psychiatrist as an outpatient. #2 essential hypertension-patient will remain on current medication #3 hypothyroidism-patient is on Synthroid #4 bilateral kidney stones-patient states she was told by urology that she will need to return to surgery for removal of left kidney stones. Total clinical time spent by myself addressing the patient's medical issues, reviewing all of her data, and collaborating with patient's care team: 35 minutes Charges/Coding Visit Charges Inpatient E&M: 27143 Subs Hosp L2
[2023-06-01] MEDS: Ciprofloxacin 400 MG/200 ML BAG 200 MG IV (21:41)
[2023-06-01] MEDS: Acetaminophen 500 MG Tablet 1000 MG PO (21:41)
[2023-06-02] MEDS: 0.9% Normal Saline 1,000 ML 50 ML IV ×2 (04:46→21:11)
[2023-06-02] MEDS: Levothyroxine 112 MCG Tablet PO (05:41)
[2023-06-02] MEDS: Acetaminophen 500 MG Tablet 1000 MG PO ×3 (05:41→21:10)
[2023-06-02 05:42] VITALS: BP 159/102; PULSE 100; RESP 18; TEMP 37.3; O2SAT 98
[2023-06-02 06:18] LABS: Hematocrit 45.9 % (37-47); Hemoglobin 14.6 g/dL (12.0-15.0); Mean Corp Hgb Conc 31.8 g/dL (32-36); Mean Corpuscular Hgb 30.4 pg (27.0-32.0); Mean Corpuscular Volume 95.6 fL (81-99); Mean Platelet Vol. 10.4 fl (6.2-12.0); Platelet Count 207 K/mm3 (150-450); RBC Distribution Width CV 13.1 % (11.6-14.6); RBC Distribution Width SD 46.5 fl (35.1-43.9); White Blood Count 6.6 K/mm3 (4.4-11.0)
--- NOTE | 2023-06-02 07:25 | PCM.PN.BLA ---
Progress Note Status post right ureteroscopy and laser lithotripsy of large stones causing obstruction on the right side and new stent placement. Patient is clinically stable. She also has 6 significant stones on the left side so can add her on for the schedule for tomorrow for left ureteroscopy and laser the stones in the left side possibly and may have to do a percutaneous approach we will make a decision at the time of surgery again to see if I can get equipment to do a percutaneous approach or images at the laser the left side. Patient is agreeable with proceeding with more surgery to take care of the significant amount of stone burden she has.
[2023-06-02 07:39] LABS: Anion Gap 5 (5-15); BUN 22 mg/dL (7-18); BUN/Creat Ratio 17.5 RATIO (10-20); Calcium,Total 11.1 mg/dL (8.5-10.1); Chloride 110 mmol/L (98-107); Creatinine, Serum 1.26 mg/dL (0.55-1.02); EST Glomerular Filtration Rate 44 mL/min (>60); Est Glom Filt Rate - Afr Amer 53 mL/min (>60); Estimated Creatinine Clearance 32.58 ml/min; Glucose 155 mg/dL (74-106); Potassium 4.6 mmol/L (3.5-5.1); Sodium Level 141 mmol/L (136-145)
[2023-06-02 09:49] VITALS: BP 137/86; PULSE 103; RESP 18; TEMP 36.4; O2SAT 97
[2023-06-02] MEDS: Magnesium Chloride 64 MG Delay Rel.Tablet 128 MG PO (09:57)
[2023-06-02] MEDS: Bisacodyl 5 MG Tablet 10 MG PO (10:16)
[2023-06-02 14:07] VITALS: BP 129/92; PULSE 104; RESP 17; TEMP 36.4; O2SAT 94
--- NOTE | 2023-06-02 17:46 | PCM.PN.HOSP ---
Reason for Visit Reason for Visit: Diagnoses Essential (primary) hypertension (05/31/23) Paroxysmal atrial fibrillation (05/31/23) Calculus of kidney (05/31/23) Subjective Subjective Patient was seen and examined today, she is going back for another neurological surgery tomorrow, I briefly discussed her rate limiting medication with her, it appears that she is only taking her metoprolol every other day, I told her that this was not a therapeutic dose and that I did not believe it was controlling her atrial fib, I had nursing asked the patient whether she would consider taking a higher dose and she would not. I have decided at this time the patient does not need to be monitored, she is asymptomatic with her atrial fib. Objective Data Objective Data Vital Signs: Vital Signs Temp Pulse Resp BP Pulse Ox O2 Del Method O2 Flow Rate 97.5 F L 104 H 17 129/92 H 94 Room Air 2 06/02/23 14:07 06/02/23 14:07 06/02/23 14:07 06/02/23 14:07 06/02/23 14:07 06/02/23 14:07 06/02/23 05:42 Oxygen Flow Rate (L/min) 2 Oxygen Delivery Method Room Air Weight: 101.6 kg Body Mass Index (BMI) 37.3 Intake & Output: Intake and Output for Last 24 Hours 05/31/23 06/01/23 06/02/23 23:59 23:59 23:59 Intake Total 2614.17 / 2614.17 960.83 / 960.83 2016 Output Total 1900 / 1900 660 / 660 Balance 2614.17 / 1564.17 -939.17 / -939.17 1357 / 1357 Lab / Micro Data 06/02/23 05:55 06/02/23 05:55 Labs: Laboratory Results - last 24 hr 06/02/23 05:55: WBC 6.6, RBC 4.80, Hgb 14.6, Hct 45.9, MCV 95.6, MCH 30.4, MCHC 31.8 L, RDW Std Deviation 46.5 H, RDW Coeff of Chris 13.1, Plt Count 207, MPV 10.4, Sodium 141, Potassium 4.6, Chloride 110 H, Carbon Dioxide 26.0, Anion Gap 5, BUN 22 H, Creatinine 1.26 H, Estim Creat Clear Calc 32.58, Est GFR (MDRD) Af Amer 53 L, Est GFR (MDRD) Non-Af 44 L, BUN/Creatinine Ratio 17.5, Glucose 155 H, Calcium 11.1 H Physical Exam Narrative alert, oriented x3, no apparent distress, average body habitus and healthy appearing General Appearance: cooperative, well kempt and well developed Orientation / Consciousness: awake, oriented to person, oriented to place and oriented to time HEENT normocephalic, head/scalp atraumatic and moist oral mucous membranes Eyes PERRL, EOMs intact bilaterally and conjunctivae normal Neck supple, no JVD, thyroid normal and no carotid bruits General: trachea midline Resp normal respiratory effort, no retractions, no use of accessory muscles and clear to auscultation bilaterally Auscultation: Negative for rales, rhonchi or wheezes Cardio S1 normal heart sound, S2 normal heart sound, no murmurs, no rub and no gallops Cardio Narrative: Heart rate and rhythm is irregular GI normal to inspection, nondistended, normoactive bowel sounds, soft to palpation, non-tender and non-distended Extremity no clubbing, cyanosis or edema Skin no rashes or lesions noted General Skin Exam: no breakdown Neuro oriented x3, CN's II-XII intact bilaterally, moves all extremities, no focal motor deficits and no sensory deficits noted Sensorium / Orientation: awake and alert Speech: speech normal Psych affect normal Assessment & Plan Assessment/Plan (1) Bilateral kidney stones: PLAN: Plan 1. Paroxysmal atrial fibrillation-patient's rate appears controlled at this time, again I talked with her about anticoagulation, she will need to discuss this again with her lcac operator as an outpatient. Again, patient refuses to have her rate limiting medication adjusted at this time. #2 essential hypertension-patient will remain on current medication #3 hypothyroidism-patient is on Synthroid #4 bilateral kidney stones-appears patient will return to surgery tomorrow for removal of left kidney stones Total clinical time spent by myself addressing the patient's medical issues, reviewing all of her data, and collaborating with patient's care team: 35 minutes Charges/Coding Visit Charges Inpatient E&M: 50844 Subs Hosp L2
[2023-06-02 21:01] VITALS: BP 135/84; PULSE 87; RESP 18; TEMP 36.3; O2SAT 97
[2023-06-02] MEDS: Ciprofloxacin 400 MG/200 ML BAG 200 MG IV (21:10)
[2023-06-03] VITALS (11 sets, daily range): BP systolic 90–164; BP diastolic 45–103; PULSE 66–133; RESP 16–18; TEMP 35.8–36.6; O2SAT 93–99; BMI 37.3
[2023-06-03] MEDS: Acetaminophen 500 MG Tablet 1000 MG PO ×2 (05:36→21:34)
[2023-06-03] MEDS: Levothyroxine 112 MCG Tablet PO (05:36)
[2023-06-03] MEDS: Metoprolol(XL)Succ 25 MG Tablet 12.5 MG PO (08:29)
[2023-06-03] MEDS: Ciprofloxacin 400 MG/200 ML BAG 200 MG IV ×2 (13:45→13:50)
--- NOTE | 2023-06-03 16:27 | CASEMGMT ---
RN CM into pt room, pt is off of the floor at this time.
--- NOTE | 2023-06-03 17:34 | PN.HOSP_ITS ---
Reason for Visit Reason for Visit: Diagnoses Essential (primary) hypertension (05/31/23) Paroxysmal atrial fibrillation (05/31/23) Calculus of kidney (05/31/23) Subjective Subjective And examined today, patient has no complaints of any chest pain or shortness of breath, she is due to go back to surgery today for treatment of left kidney stones. Objective Data Objective Data Vital Signs: Vital Signs Temp Pulse Resp BP Pulse Ox O2 Del Method O2 Flow Rate 97.7 F L 94 18 152/85 H 95 Room Air 2 06/03/23 12:55 06/03/23 08:29 06/03/23 08:16 06/03/23 08:16 06/03/23 12:55 06/03/23 12:55 06/02/23 05:42 Oxygen Flow Rate (L/min) 2 Oxygen Delivery Method Room Air Weight: 101.6 kg Body Mass Index (BMI) 37.3 Intake & Output: Intake and Output for Last 24 Hours 06/01/23 06/02/23 06/03/23 23:59 23:59 23:59 Intake Total 960.83 / 960.83 3537.83 / 3537.83 1670.83 / 1670.83 Output Total 1900 / 1900 660 / 660 900 / 900 Balance -939.17 / -939.17 2877.83 / 2877.83 770.83 / 770.83 Lab / Micro Data 06/02/23 05:55 06/02/23 05:55 Physical Exam Narrative alert, oriented x3, no apparent distress, average body habitus and healthy appearing General Appearance: cooperative, well kempt and well developed Orientation / Consciousness: awake, oriented to person, oriented to place and oriented to time HEENT normocephalic, head/scalp atraumatic and moist oral mucous membranes Eyes PERRL, EOMs intact bilaterally and conjunctivae normal Neck supple, no JVD, thyroid normal and no carotid bruits General: trachea midline Resp normal respiratory effort, no retractions, no use of accessory muscles and clear to auscultation bilaterally Auscultation: Negative for rales, rhonchi or wheezes Cardio S1 normal heart sound, S2 normal heart sound, no murmurs, no rub and no gallops Cardio Narrative: Heart rate and rhythm is irregular GI normal to inspection, nondistended, normoactive bowel sounds, soft to palpation, non-tender and non-distended Extremity no clubbing, cyanosis or edema Skin no rashes or lesions noted General Skin Exam: no breakdown Neuro oriented x3, CN's II-XII intact bilaterally, moves all extremities, no focal motor deficits and no sensory deficits noted Sensorium / Orientation: awake and alert Speech: speech normal Psych affect normal Assessment & Plan Assessment/Plan (1) Bilateral kidney stones: PLAN: Plan 1. Paroxysmal atrial fibrillation-patient's rate appears controlled at this time, again I talked with her about anticoagulation, she will need to discuss this again with her environmental services floor tech as an outpatient. Again, patient refuses to have her rate limiting medication adjusted at this time. #2 essential hypertension-patient will remain on current medication #3 hypothyroidism-patient is on Synthroid #4 bilateral kidney stones-appears patient will return to surgery today for removal of left kidney stones Total clinical time spent by myself addressing the patient's medical issues, reviewing all of her data, and collaborating with patient's care team: 35 minutes Charges/Coding Visit Charges Inpatient E&M: 90382 Subs Hosp L2
--- NOTE | 2023-06-03 18:21 | OP.PCM_ITS ---
Report of Operation Date of Procedure: 06/03/23 Pre-Operative Diagnosis: Left large multiple staghorn calculi Post-Operative Diagnosis: The same Surgery/Procedure Performed:: Cystoscopy, percutaneous access to the left kidney, left percutaneous nephrostolithotomy, left ureteroscopy laser lithotripsy of stones in the ureter. Left stent placement via an established nephrostomy tube access, left nephrostogram and left nephrostomy tube placement Description of Surgical Findings:: This is a 77-year-old female who presents to the hospital with bilateral obstructing stones and acute renal failure she underwent emergency stent placement when stabilized here she then underwent right ureteroscopy and laser lithotripsy of stones in the right kidney and the stent was on the right side she now has a very large stone in the left kidney organ to do a percutaneous approach as large stone and also looks active some fragments that are fairly large in the left ureter that will need to be lasered. Patient was taken back to the operating room and a smooth induction of general anesthesia she was placed in dorsolithotomy position. I went into the bladder with a cystoscope and grabbed the existing stent from the left side pulled out to the meatus put a wire up through the stent I injected contrast to see the delineation of the anatomy could see a stone right at the UPJ a fairly large stone that was impacted in the ureter and then I advanced access sheath up to that stone to get access from below then after this the patient was repositioned on the table she was placed facedown making sure all the pressure points were padded with arms ou t and she was secured to the table we then went up with the flexible ureteroscope in a retrograde fashion through the established access sheath that we put into the bladder to the urethra to the ureter and going retrograde first found out that even kidney and get past the stone at the UPJ so slowly had to laser the stone out until finally I got past the stone and then it was difficult to tell where the stone was but looks like it was impacted in the wall the ureter kept lasering slowly I did switch to a new ureteroscope since the old ureteroscope lens went bad. And then quit Lasering and then finally opened up the stone and found a stone that is going into the upper pole midpole pocket at this point then I put my access sheath and there filled up the calyx with water and then used triangulation technique to guide the needle into that calyx and then I was able to get the wire into the calyx and then we dilated over the wire within 8 [place] and then a 10 [place] and a 12 [place] renal dilators then over this I put in the dual-lumen catheter and then put a Super Stiff catheter into the kidney and then Glidewire next this and then over the Super Stiff wire then I balloon dilated the to get into the kidney the first dilation and then go far enough side balloon dilated a second time and this time I got the access sheath into the kidney had to go along with the access sheath and expected then I got access to the midpole calyx so then went in with the nephroscope there was a crack in the nephroscope then made visualization somewhat difficult we only had 1 set but it kept working and then I was able to see the stones and then I used the ultrasonic lithotripter to removed and ultrasound the stones this was very efficient and removing many fragments from the UPJ area there were other stone fragments have been in the using ultrasound lithotripter to suction and the treat the stones in the in the calyx and in the UPJ area I then went went flexible cystoscope basket bunch of stones in the UPJ I then went antegrade with the ureteroscope down to I met the access sheath and then I pulled the access sheath out and then we went antegrade all the way down to the bladder with a ureteroscope and small stone fragments along the course of the ureter but no major fragments small fragment that should pass I then put a wire through the ureteroscope and then loaded the stent over the wire and then put a stent up on the left side that went from the kidney to the bladder to stent the entire ureter to let this heal up there is a lot of trauma to the ureter from so many stones impacted in the ureter. So it up I would like to leave the stent in for a good month to let this heal up and hopefully avoid a stricture I then went back into the kidney with the nephroscope and suctioned out and did ultrasonography lithotripsy and the remaining fragments and then there was no major fragments left in the kidney and checked the midpole and lower pole that I could reach there was once calyx I could not reach so this was not checked but it looked negative on fluoroscopy I then put a wire through the nerve scope and then put the wire coiled in the lower pole and then I put a nephrostomy tube over this wire and then the nephrostomy tube coiled in the kidney I did nephrostogram he could see the contrast within the collecting system there is no extravasation and then we removed the access sheath and nephrostomy tube and then the left the access sheath over the nephrostomy tube and then this was left in place so that she had a stent in place and a nephrostomy tube in the left side the urine was fairly bloody we did put a Floseal in the access site to help control bleeding I did hold pressure in the kidney and then we secured the tube to the patient's side the patient was then transferred back to the flexible table and extubated taken back to PACU in good condition and will probably keep over the weekend for observation after this percutaneous procedure to remove the stones from the left kidney and the left proximal ureter. Fairly long complicated procedure took about 3 hours to complete the procedure.
[2023-06-03] MEDS: Morphine 2 MG/ML Syringe IV (19:46)
[2023-06-03] MEDS: 0.9% Normal Saline 1,000 ML 125 ML IV (21:31)
[2023-06-03] MEDS: oxyCODONE 5 MG Tablet PO (21:33)
[2023-06-04 03:35] VITALS: BP 123/78; PULSE 91; RESP 16; TEMP 36.9; O2SAT 96
[2023-06-04] MEDS: Acetaminophen 500 MG Tablet 1000 MG PO ×2 (05:14→21:31)
[2023-06-04] MEDS: 0.9% Saline Lock 10 ML Syringe IV (05:14)
[2023-06-04] MEDS: Levothyroxine 112 MCG Tablet PO (05:14)
[2023-06-04] MEDS: 0.9% Normal Saline 1,000 ML 125 ML IV (05:20)
[2023-06-04 06:03] LABS: Absolute Lymphocyte Count 0.51 X10^3/uL (0.83-4.51); Absolute Neutrophil Count 7.3 X10^3/uL (2.0-7.7); Basophil# 0.01 X10^3/uL; Basophil% 0.1 % (0-1); Hematocrit 46.6 % (37-47); Hemoglobin 14.9 g/dL (12.0-15.0); Lymphocyte # 0.51 X10^3/ul (0.83-4.51); Mean Corpuscular Hgb 31.6 pg (27.0-32.0); Mean Corpuscular Volume 98.7 fL (81-99); Mean Platelet Vol. 10.2 fl (6.2-12.0); Monocyte# 0.61 X10^3/uL; Monocyte% 7.2 % (0-10); NRBC Flagged by Analyzer 0 % (0-5); Neutrophil % 86.3 % (47-70); POSITIVE DIFFERENTIAL YES; Platelet Count 219 K/mm3 (150-450); RBC Distribution Width CV 13.5 % (11.6-14.6); RBC Distribution Width SD 49.2 fl (35.1-43.9); Red Blood Count 4.72 M/mm3 (4.2-5.4); White Blood Count 8.5 K/mm3 (4.4-11.0)
[2023-06-04 06:34] LABS: Differential Indicated SCAN CRITERIA MET
[2023-06-04 06:38] LABS: Differential Comment SCANNED
--- NOTE | 2023-06-04 06:47 | PCM.PN.GU ---
Subjective Subjective 9 status post percutaneous removal of left staghorn calculus she has a left nephrostomy tube and slightly bloody this morning Cardoso catheter still in place we will remove the Cardoso catheter she is got bilateral stents in place pain is minimal and she is doing well. Tomorrow we will try clamp the nephrostomy tube once it is clear and blood. Objective Data Objective Data Vital Signs: Vital Signs Temp Pulse Resp BP Pulse Ox O2 Del Method O2 Flow Rate 98.4 F 91 16 123/78 H 96 Room Air 2 06/04/23 03:35 06/04/23 03:35 06/04/23 03:35 06/04/23 03:35 06/04/23 03:35 06/04/23 03:35 06/02/23 05:42 Oxygen Flow Rate (L/min) 2 Oxygen Delivery Method Room Air Weight: 101.6 kg Body Mass Index (BMI) 37.3 Intake & Output: Intake and Output for Last 24 Hours 06/02/23 06/03/23 06/04/23 23:59 23:59 23:59 Intake Total 3537.83 / 3537.83 2060.41 / 2060.41 977.08 / 977.08 Output Total 660 / 660 1175 / 1505 690 / 690 Balance 2877.83 / 2877.83 885.41 / 555.41 287.08 / 287.08 Lab / Micro Data 06/04/23 05:40 06/02/23 05:55 Labs: Laboratory Results - last 24 hr 06/04/23 05:40: WBC 8.5, RBC 4.72, Hgb 14.9, Hct 46.6, MCV 98.7, MCH 31.6, MCHC 32.0, RDW Std Deviation 49.2 H, RDW Coeff of Chris 13.5, Plt Count 219, MPV 10.2, Immature Gran % (Auto) 0.400, Neut % (Auto) 86.3 H, Lymph % (Auto) 6.0 L, [place] % (Auto) 7.2, Eos % (Auto) 0.0, Baso % (Auto) 0.1, Absolute Neuts (auto) 7.3, Absolute Lymphs (auto) 0.51 L, Nucleated RBC % 0, Differential Comment SCANNED
[2023-06-04 07:02] LABS: Anion Gap 3 (5-15); BUN 24 mg/dL (7-18); BUN/Creat Ratio 19.4 RATIO (10-20); Calcium,Total 10.8 mg/dL (8.5-10.1); Chloride 113 mmol/L (98-107); Creatinine, Serum 1.24 mg/dL (0.55-1.02); EST Glomerular Filtration Rate 44 mL/min (>60); Est Glom Filt Rate - Afr Amer 54 mL/min (>60); Glucose 162 mg/dL (74-106); Potassium 4.6 mmol/L (3.5-5.1); Sodium Level 141 mmol/L (136-145)
[2023-06-04 10:15] VITALS: BP 103/78; PULSE 62; RESP 16; TEMP 36.5; O2SAT 97
[2023-06-04] MEDS: Magnesium Chloride 64 MG Delay Rel.Tablet 128 MG PO (10:23)
--- NOTE | 2023-06-04 11:35 | CASEMGMT ---
GRICELDA FLOWER into pt room, pt sitting up eating lunch, at bedside. Pt states she has assistance at home with her and dtrs. Pt denies any homegoing needs. She states she was told this morning that she may dc on Tuesday. GRICELDA FLOWER to continue to follow.
[2023-06-04] MEDS: Ciprofloxacin 500 MG Tablet PO ×2 (12:25→21:31)
[2023-06-04] MEDS: Bisacodyl 5 MG Tablet 10 MG PO (12:30)
[2023-06-04 14:48] VITALS: BP 122/83; PULSE 91; RESP 16; TEMP 36.1; O2SAT 98
--- NOTE | 2023-06-04 17:19 | PCM.PN.HOSP ---
Reason for Visit Reason for Visit: Diagnoses Essential (primary) hypertension (05/31/23) Paroxysmal atrial fibrillation (05/31/23) Calculus of kidney (05/31/23) Subjective Subjective Seen and examined today, her white count remains normal, her creatinine is at baseline. Patient is up in a chair and has no complaints of any shortness of breath or chest discomfort. Objective Data Objective Data Vital Signs: Vital Signs Temp Pulse Resp BP Pulse Ox O2 Del Method O2 Flow Rate 97.0 F L 91 16 122/83 H 98 Room Air 2 06/04/23 14:48 06/04/23 14:48 06/04/23 14:48 06/04/23 14:48 06/04/23 14:48 06/04/23 14:48 06/02/23 05:42 Oxygen Flow Rate (L/min) 2 Oxygen Delivery Method Room Air Weight: 101.6 kg Body Mass Index (BMI) 37.3 Intake & Output: Intake and Output for Last 24 Hours 06/02/23 06/03/23 06/04/23 23:59 23:59 23:59 Intake Total 3537.83 / 3537.83 2060.41 / 2060.41 1831.25 / 1831.25 Output Total 660 / 660 1175 / 1505 1340 / 1340 Balance 2877.83 / 2877.83 885.41 / 555.41 491.25 / 491.25 Lab / Micro Data 06/04/23 05:40 06/04/23 05:40 Labs: Laboratory Results - last 24 hr 06/04/23 05:40: WBC 8.5, RBC 4.72, Hgb 14.9, Hct 46.6, MCV 98.7, MCH 31.6, MCHC 32.0, RDW Std Deviation 49.2 H, RDW Coeff of Chris 13.5, Plt Count 219, MPV 10.2, Immature Gran % (Auto) 0.400, Neut % (Auto) 86.3 H, Lymph % (Auto) 6.0 L, [place] % (Auto) 7.2, Eos % (Auto) 0.0, Baso % (Auto) 0.1, Absolute Neuts (auto) 7.3, Absolute Lymphs (auto) 0.51 L, Nucleated RBC % 0, Differential Comment SCANNED, Sodium 141, Potassium 4.6, Chloride 113 H, Carbon Dioxide 25.0, Anion Gap 3 L, BUN 24 H, Creatinine 1.24 H, Estim Creat Clear Calc 33.10, Est GFR (MDRD) Af Amer 54 L, Est GFR (MDRD) Non-Af 44 L, BUN/Creatinine Ratio 19.4, Glucose 162 H, Calcium 10.8 H Physical Exam Narrative alert, oriented x3, no apparent distress, average body habitus and healthy appearing General Appearance: cooperative, well kempt and well developed Orientation / Consciousness: awake, oriented to person, oriented to place and oriented to time HEENT normocephalic, head/scalp atraumatic and moist oral mucous membranes Eyes PERRL, EOMs intact bilaterally and conjunctivae normal Neck supple, no JVD, thyroid normal and no carotid bruits General: trachea midline Resp normal respiratory effort, no retractions, no use of accessory muscles and clear to auscultation bilaterally Auscultation: Negative for rales, rhonchi or wheezes Cardio S1 normal heart sound, S2 normal heart sound, no murmurs, no rub and no gallops Cardio Narrative: Heart rate and rhythm is irregular GI normal to inspection, nondistended, normoactive bowel sounds, soft to palpation, non-tender and non-distended, left nephrostomy tube is in place Extremity no clubbing, cyanosis or edema Skin no rashes or lesions noted General Skin Exam: no breakdown Neuro oriented x3, CN's II-XII intact bilaterally, moves all extremities, no focal motor deficits and no sensory deficits noted Sensorium / Orientation: awake and alert Speech: speech normal Psych affect normal Assessment & Plan Assessment/Plan (1) Bilateral kidney stones: PLAN: Plan 1. Paroxysmal atrial fibrillation-patient's rate appears controlled at this time #2 essential hypertension-patient will remain on current medication #3 hypothyroidism-patient is on Synthroid #4 bilateral kidney stones-appears patient will return to surgery today for removal of left kidney stones Total clinical time spent by myself addressing the patient's medical issues, reviewing all of her data, and collaborating with patient's care team: 25 minutes Charges/Coding Visit Charges Inpatient E&M: 55418 Subs Hosp L1
[2023-06-04 21:28] VITALS: BP 135/76; PULSE 108; RESP 18; TEMP 36.6; O2SAT 96
[2023-06-04 23:50] VITALS: BP 127/80; PULSE 104; RESP 18; TEMP 36.6; O2SAT 97
[2023-06-05 04:00] VITALS: BP 139/87; PULSE 102; RESP 18; TEMP 36.6; O2SAT 96
[2023-06-05] MEDS: Levothyroxine 112 MCG Tablet PO (06:30)
[2023-06-05] MEDS: Acetaminophen 500 MG Tablet 1000 MG PO ×3 (06:30→22:11)
--- NOTE | 2023-06-05 08:29 | PN.HOSP_ITS ---
Reason for Visit Reason for Visit: Diagnoses Essential (primary) hypertension (05/31/23) Paroxysmal atrial fibrillation (05/31/23) Calculus of kidney (05/31/23) Subjective Subjective Patient was seen and examined today, she does not complain of any fevers or chills. Vital signs are stable at this time. Objective Data Objective Data Vital Signs: Vital Signs Temp Pulse Resp BP Pulse Ox O2 Del Method O2 Flow Rate 97.8 F 102 H 18 139/87 H 96 Room Air 2 06/05/23 04:00 06/05/23 04:00 06/05/23 04:00 06/05/23 04:00 06/05/23 04:00 06/05/23 04:00 06/02/23 05:42 Oxygen Flow Rate (L/min) 2 Oxygen Delivery Method Room Air Weight: 101.6 kg Body Mass Index (BMI) 37.3 Intake & Output: Intake and Output for Last 24 Hours 06/03/23 06/04/23 06/05/23 23:59 23:59 23:59 Intake Total 2060.41 / 2060.41 3031.25 / 3031.25 400 / 400 Output Total 1175 / 1505 3440 / 3440 1125 / 1125 Balance 885.41 / 555.41 -408.75 / -408.75 -725 / -725 Lab / Micro Data 06/04/23 05:40 06/04/23 05:40 Physical Exam Narrative alert, oriented x3, no apparent distress, average body habitus and healthy appearing General Appearance: cooperative, well kempt and well developed Orientation / Consciousness: awake, oriented to person, oriented to place and oriented to time HEENT normocephalic, head/scalp atraumatic and moist oral mucous membranes Eyes PERRL, EOMs intact bilaterally and conjunctivae normal Neck supple, no JVD, thyroid normal and no carotid bruits General: trachea midline Resp normal respiratory effort, no retractions, no use of accessory muscles and clear to auscultation bilaterally Auscultation: Negative for rales, rhonchi or wheezes Cardio S1 normal heart sound, S2 normal heart sound, no murmurs, no rub and no gallops Cardio Narrative: Heart rate and rhythm is irregular GI normal to inspection, nondistended, normoactive bowel sounds, soft to palpation, non-tender and non-distended, left nephrostomy tube is in place Extremity no clubbing, cyanosis or edema Skin no rashes or lesions noted General Skin Exam: no breakdown Neuro oriented x3, CN's II-XII intact bilaterally, moves all extremities, no focal motor deficits and no sensory deficits noted Sensorium / Orientation: awake and alert Speech: speech normal Psych affect normal Assessment & Plan Assessment/Plan (1) Bilateral kidney stones: PLAN: Plan 1. 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 #2 essential hypertension-patient will remain on current medication #3 hypothyroidism-patient is on Synthroid #4 bilateral kidney stones-patient has a nephrostomy tube on the left at this time Total clinical time spent by myself addressing the patient's medical issues, reviewing all of her data, and collaborating with patient's care team: 25 minutes Charges/Coding Visit Charges Inpatient E&M: [id number] [facility] Hosp L1
[2023-06-05 09:25] VITALS: BP 126/66; PULSE 81; RESP 16; TEMP 36.4; O2SAT 97
[2023-06-05] MEDS: Magnesium Chloride 64 MG Delay Rel.Tablet 128 MG PO (09:29)
[2023-06-05] MEDS: Ciprofloxacin 500 MG Tablet PO ×2 (09:30→22:11)
[2023-06-05 14:50] VITALS: BP 137/79; PULSE 94; RESP 18; TEMP 36.6; O2SAT 95
[2023-06-05] MEDS: Bisacodyl 5 MG Tablet 10 MG PO (15:14)
[2023-06-05 22:00] VITALS: BP 144/98; PULSE 105; RESP 18; TEMP 36.6; O2SAT 95
[2023-06-06 04:12] VITALS: BP 148/93; PULSE 93; RESP 18; TEMP 36.6; O2SAT 96
--- NOTE | 2023-06-06 06:24 | PN.HOSP_ITS ---
Reason for Visit Reason for Visit: Diagnoses Essential (primary) hypertension (05/31/23) Paroxysmal atrial fibrillation (05/31/23) Calculus of kidney (05/31/23) Subjective Subjective Patient with no acute events overnight per self and per nursing report. Nephrostomy tube pulled this a.m. without issue as no longer having any drainage or concerning findings. Patient only complaint is constipation which is not normal for her and her urologist has already ordered her home suppositories she notes. Patient denies fevers, chills, nausea, emesis, abdominal pain, chest pain or dyspnea. Objective Data Objective Data Vital Signs: Vital Signs Temp Pulse Resp BP Pulse Ox O2 Del Method O2 Flow Rate 97.8 F 93 18 148/93 H 96 Room Air 2 06/06/23 04:12 06/06/23 04:12 06/06/23 04:12 06/06/23 04:12 06/06/23 04:12 06/06/23 04:18 06/02/23 05:42 Oxygen Flow Rate (L/min) 2 Oxygen Delivery Method Room Air Weight: 223 lb 15.834 oz Body Mass Index (BMI) 37.3 Intake & Output: Intake and Output for Last 24 Hours 06/04/23 06/05/23 06/06/23 23:59 23:59 23:59 Intake Total 3031.25 / 3031.25 1850 / 1850 Output Total 3440 / 3440 2350 / 2350 Balance -408.75 / -408.75 -500 / -500 Lab / Micro Data 06/04/23 05:40 06/04/23 05:40 Physical Exam Narrative Physical Examination: General: Awake, alert, oriented x 3 and cooperative, seated upright in [employer] chair, no acute distress, reports constipation but otherwise no acute complaints Skin: Normal color, normal turgor, no icterus, no cyanosis except for expected ecchymoses with recent lab draws as well as status post nephrostomy left-sided removal with dressing in place, no drainage. HEENT: AT/NC, EOMI, PERRLA, MMM. Lungs: CTA bilaterally, moderate effort, mild decrease BL bases, no rales, ronchi or wheezing. Heart: Regular rate and rhythm; no gallop, rub audible. Abdomen: Soft, obese, NTTP, ND, normal BS, no CVA tenderness, status post removal of left-sided nephrostomy tube. Extremities: No cyanosis, clubbing, or edema. Neurological: Patient awake, alert, oriented as noted, cognitive function intact; pupils equally reactive to light and accommodation, cranial nerves grossly normal, moving all 4 extremities, no focal deficits, strength improved, mildly global decreased. Psychiatric: Affect appears normal, no acute evidence of depressive or anxiety feelings. Assessment & Plan Assessment/Plan (1) Bilateral kidney stones: PLAN: Plan The patient is a 77 y/o F w/ PMHx: PAF, OA, Hypothyroidism, Hyperparathyroidism, Obesity, HTN who presents to the [facility] on 05/30/[address] Eagle with noted BL obstructive kidney stones with associated nausea, emesis and pain. #1. Acute bilateral obstructive enteric renal calculi worse on the left with evidence of staghorn calculus: Admitted per Dr. Eagle, 05/30/2023 cystoscopy with right retrograde pyelogram and right stent placement as well as a left retrograde pyelogram and left stent placement, follow-up 06/01/2023 cystoscopy with balloon dilation of the ureter and placement of an access sheath in the right side with right ureteroscopy laser lithotripsy of stones, multiple in the right kidney as well as right stent placement, follow-up 06/03/2023 cystoscopy with percutaneous access to the left kidney, left percutaneous nephrosto lithotomy, left ureteroscopy laser lithotripsy of stones in the ureter, left stent placement via established nephrostomy tube access, left nephrostogram and left nephrostomy tube placement. Currently maintained on the medical surgical floor, noted intention per last urology note for trial 06/05/2023 with nephrostomy tube clamping as able if drainage clear with also plan for Cardoso removal with fortunately 06/06/2020 3 AM nephrostomy tube discontinuation. Currently maintained on ciprofloxacin per urology discretion. Patient renal function improved, medical service amenable for patient discharged home per urology discretion with recommended outpatient follow-up with primary care in addition to urology as well as follow-up renal function assessment. #2. Acute kidney injury: Secondary to acute ureteral obstruction with kidney stones bilateral. Admission BUN/Cr 28/2.56, prior baseline creatinine noted to be primarily 0.92 more recently 1.2. Treated with operative intervention and noted, clinically improved, most recent 06/03/2023 BUN/creatinine 07/12.24. #3. PAF: Rate controlled, continue on metoprolol, during admission with prior hospitalist discussed at length importance of following up with cardiology in regard to full anticoagulation secondary to underlying atrial fibrillation, currently not chronically anticoagulated. #4. Hypertension: Continue home regimen including Norvasc, metoprolol, PRN hydralazine. #5. Hypothyroidism: Continue patient home Synthroid regimen, status post prior radioactive thyroid ablation. #6. Obesity: Weight loss and lifestyle changes encouraged. #7. DVT prophylaxis: SCDs per urology discretion given recent operative intervention, again prior hospitalist discussed importance of follow-up with cardiology for future consideration anticoagulation given underlying chronic atrial fibrillation. Charges/Coding Visit Charges Inpatient E&M: 15687 Subs Hosp L2
[2023-06-06] MEDS: Acetaminophen 500 MG Tablet 1000 MG PO (06:34)
[2023-06-06] MEDS: Levothyroxine 112 MCG Tablet PO (06:34)
--- NOTE | 2023-06-06 07:44 | PCM.DC.SUM ---
Providers Date of Admission: 05/31/23 Date of Discharge: 06/06/23 Primary Care Physician: Dr. Kali Forrest MD Consultations 05/30/23 17:39 Consult: Hospitalist Routine Consulting Provider: [facility] Reason for Consult: Medical manegment and Afib EMERGENT Consult: No MD Notified: No Date Notified: 05/30/23 Time Notified: 17:39 Reason For Visit: BILATERAL KIDNEY STONES Diagnosis Discharge Diagnosis (1) Bilateral kidney stones: Status: Acute Code(s): N20.0 - Calculus of kidney (2) Preop cardiovascular exam: Status: Acute Code(s): Z01.810 - Encounter for preprocedural cardiovascular examination (3) Contusion of rib on right side: Status: Acute Code(s): S20.211A - Contusion of right front wall of thorax, initial encounter (4) Primary hyperparathyroidism: Status: Acute Code(s): E21.0 - Primary hyperparathyroidism (5) Pure hypercholesterolemia: Status: Acute Code(s): E78.00 - Pure hypercholesterolemia, unspecified (6) Essential (primary) hypertension: Status: Chronic Code(s): I10 - Essential (primary) hypertension (7) Fatigue: Status: Chronic Code(s): R53.83 - Other fatigue Qualifiers: Fatigue type: unspecified Qualified Code(s): R53.83 - Other fatigue (8) Paroxysmal atrial fibrillation: Status: Chronic Code(s): I48.0 - Paroxysmal atrial fibrillation (9) Palpitations: Status: Acute Code(s): R00.2 - Palpitations (10) Hypothyroidism: Status: Chronic Code(s): E03.9 - Hypothyroidism, unspecified Qualifiers: Hypothyroidism type: unspecified Qualified Code(s): E03.9 - Hypothyroidism, unspecified (11) Morbid obesity with BMI of 40.0-44.9, adult: Status: Chronic Code(s): E66.01 - Morbid (severe) obesity due to excess calories; Z68.41 - Body mass index [BMI] 40.0-44.9, adult Medications at Discharge Home Medications cinnamon bark 500 mg capsule 500 mg PO DAILY DM 03/10/18 Just Barley 2 cap PO QHS vitamin supplement 11/05/18 magnesium 250 mg tablet 250 mg PO DAILY 09/06/19 levothyroxine 112 mcg tablet 112 mcg PO DAILY 10/29/20 aspirin 325 mg tablet 325 mg PO DAILY heart health 05/29/21 amlodipine 5 mg tablet 5 mg PO DAILY 02/22/22 lactobacillus combination no.9 4 billion cell capsule (Adult 50 Plus Probiotic) 4,000 mmu cells PO DAILY 02/22/22 omega 3 35 mg-dha 25 mg-epa 5 mg-fish oil 113.5 mg chewable tablet (Children's Arabi-3 Gummy Fish) 1 tab PO DAILY 02/22/22 Nuban liquid irene 2 tsp PO DAILY 05/27/22 cholecalciferol (vitamin D3) 125 mcg (5,000 unit) capsule 125 mcg PO .M,W,F 10/28/22 metoprolol succinate 25 mg tablet,extended release 24 hr 12.5 mg (1/2 x 25 mg) PO MOWEFR 90 days #20 tabs 11/02/22 cascara sagrada 450 mg capsule 450 mg PO QMWF PRN constipation 12/07/22 hydrocodone-acetaminophen 5-325mg 5mg-325mg 1 tab PO Q6H PRN PRN Pain 3 days #10 TABLETS 05/26/23 ondansetron 4 mg disintegrating tablet 4 mg translingual Q6H PRN nausea and vomiting 05/30/23 ciprofloxacin HCl 500 mg tablet (Cipro) 500 mg PO BID #10 tabs 06/06/23 docusate sodium 100 mg capsule (Colace) 100 mg PO BID #14 caps 06/06/23 Hospital Course Summary of Care Provided Minutes Spent on Discharge: 35 Hospital Course: 77-year-old female presented to my office with bilateral obstructing large staghorn calculus. She underwent immediate cystoscopy and stent placement was then admitted to the hospital she had acute renal failure and her kidney function improved after the stent placement. She then underwent staged procedures. First she underwent right ureteroscopy and laser lithotripsy of stones and stent placement. This was a complete procedure. And then subsequent to this she underwent left ureteroscopy and left percutaneous removal of kidney stones and nephrostomy tube placement. After the surgery the urine was fairly bloody from the nephrostomy tube but then cleared over the next 48 hours we then clamped nephrostomy tube for a clamping trial she tolerated this quite well was making good urine output. Nephrostomy tube was then removed today and the patient will go home with stents in place bilaterally and she will go home with a short course of antibiotics stool softeners she has an appointment to follow-up next week with me for cystoscopy and bilateral stent removal. She understands she needs to call my office to make an appointment I will make my office aware that she needed a follow-up next week. Physical Exam Const alert and oriented x3 General Appearance: cooperative Orientation / Consciousness: awake Exam Limitations: no limitations HEENT normocephalic no CVA tenderness Medical Records Data Attestation: I reviewed the patient's medical records Weight / BMI Weight Weight: 101.6 kg Body Mass Index (BMI) 37.3 ABG / Lab / Microbiology Data 06/04/23 05:40 06/04/23 05:40 D/C Instructions Discharge Diet: No restrictions Discharge Activity: Return to Normal Activity Lifting Restrictions: no restrictions Please Follow Up With: Shelton Eagle MD When: Follow up next week to remove stents Meaningful Use Info Meaningful Use Diagnoses (Choose all that apply): None applicable Discharge Plan Admission Admit Date/Time: 05/31/23 15:03 Primary Reason for Your Visit: s/p removal of stones bilateral Attending Provider: Shelton Eagle Primary Care Provider: Kali Forrest Consulting Providers: Janey Guerra Discharge Orders/Prescriptions Prescriptions: New ciprofloxacin HCl [Cipro] 500 mg tablet 500 mg PO BID Qty: 10 0RF docusate sodium [Colace] 100 mg capsule 100 mg PO BID Qty: 14 0RF Continued aspirin 325 mg tablet 325 mg PO DAILY Hold Instructions: Order Changed magnesium 250 mg tablet 250 mg PO DAILY Hold Instructions: not taking levothyroxine 112 mcg tablet 112 mcg PO DAILY amlodipine 5 mg tablet 5 mg PO DAILY Hold Instructions: not taking Adult 50 Plus Probiotic 4 billion cell capsule 4,000 mmu cells PO DAILY Hold Instructions: no taking Rx Instructions: administer with a meal Children's Arabi-3 Gummy Fish 35-25-5-113.5 mg tablet,chewable 1 tab PO DAILY Hold Instructions: not taking Nuban liquid irene liquid 2 tsp PO DAILY cholecalciferol (vitamin D3) 125 mcg (5,000 unit) capsule 125 mcg PO .M,W,F cascara sagrada 450 mg capsule 450 mg PO QMWF PRN (Reason: constipation) cinnamon bark 500 mg capsule 500 mg PO DAILY Hold Instructions: not taking Patient Comments: No longer taking Just Barley 2 cap PO QHS hydrocodone-acetaminophen 5-325 mg tablet 1 tab PO Q6H PRN PRN (Reason: Pain) 3 Days Qty: 10 0RF ondansetron 4 mg tablet,disintegrating 4 mg translingual Q6H PRN (Reason: nausea and vomiting) metoprolol succinate 25 mg tablet extended release 24 hr 12.5 mg PO MOWEFR 90 Days Qty: 20 3RF Rx Instructions: 12.5 mg PO daily on Tuesday, Tuesday, and Tuesday; Referrals / Follow Up: Shelton Eagle MD [Med Staff - Active Staff] - Kali Forrest MD [Primary Care Provider] - Disposition Discharge Orders: Discharge Patient (Routine); Ordered 06/06/23 Ordered By: Dr. Shelton Eagle
[2023-06-06 08:00] VITALS: BP 144/90; PULSE 99; RESP 18; TEMP 36.7; O2SAT 94; O2SAT 97
[2023-06-06] MEDS: Bisacodyl 10 MG Suppository RC (09:09)
[2023-06-06] MEDS: Magnesium Chloride 64 MG Delay Rel.Tablet 128 MG PO (09:09)
[2023-06-06] MEDS: Ciprofloxacin 500 MG Tablet PO (09:09)
--- NOTE | 2023-06-06 10:22 | PHA.DC_ITS ---
Pharmacy [facility] has performed discharge medication reconciliation and counseling for this patient. 1. CIPROFLOXACIN 500MG PO BID X 5 DAYS 2. DOCUSATE 100MG PO BID The patient's discharge medication list was reviewed for discrepancies and discrepancies were resolved. The patient was counseled on the following discharge medications and changes in medications for homegoing were reviewed. The Reason for Use, instructions for use, and potential side effects were reviewed for all new medications. The patient's questions regarding all of their medications were answered. The patient was able to verbally demonstrate an understanding of their discharge medications. Patient counseled by pharmacy services representative, Sherif. Medications at Discharge Home Medications cinnamon bark 500 mg capsule 500 mg PO DAILY DM 03/10/18 Just Barley 2 cap PO QHS vitamin supplement 11/05/18 magnesium 250 mg tablet 250 mg PO DAILY 09/06/19 levothyroxine 112 mcg tablet 112 mcg PO DAILY 10/29/20 aspirin 325 mg tablet 325 mg PO DAILY heart health 05/29/21 amlodipine 5 mg tablet 5 mg PO DAILY 02/22/22 lactobacillus combination no.9 4 billion cell capsule (Adult 50 Plus Probiotic) 4,000 mmu cells PO DAILY 02/22/22 omega 3 35 mg-dha 25 mg-epa 5 mg-fish oil 113.5 mg chewable tablet (Children's Rake-3 Gummy Fish) 1 tab PO DAILY 02/22/22 Nuban liquid irene 2 tsp PO DAILY 05/27/22 cholecalciferol (vitamin D3) 125 mcg (5,000 unit) capsule 125 mcg PO .M,W,F 10/28/22 metoprolol succinate 25 mg tablet,extended release 24 hr 12.5 mg (1/2 x 25 mg) PO MOWEFR 90 days #20 tabs 11/02/22 cascara sagrada 450 mg capsule 450 mg PO QMWF PRN constipation 12/07/22 hydrocodone-acetaminophen 5-325mg 5mg-325mg 1 tab PO Q6H PRN PRN Pain 3 days #10 TABLETS 05/26/23 ondansetron 4 mg disintegrating tablet 4 mg translingual Q6H PRN nausea and vomiting 05/30/23 ciprofloxacin HCl 500 mg tablet (Cipro) 500 mg PO BID #10 tabs 06/06/23 docusate sodium 100 mg capsule (Colace) 100 mg PO BID #14 caps 06/06/23
== END 2023-06-06 10:33 | disposition home or self-care (01) | DRG 660 ==
PROVIDERS: Anesthesiology; Internal Medicine; Admitting Provider Urology; PCP Family Medicine; Referring Provider Urology; Visit Provider Urology
PROC: 0T788DZ Dilation of Bilateral Ureters with Intraluminal Device, Via Natural or Artificial Opening Endoscopic (ICD-10-PCS; CPT 52332; principal; 2023-05-30 16:35)
PROC: 0TJ98ZZ Inspection of Ureter, Via Natural or Artificial Opening Endoscopic (ICD-10-PCS; CPT 52352; principal; 2023-06-01 11:10)
PROC: 0TC13ZZ Extirpation of Matter from Left Kidney, Percutaneous Approach (ICD-10-PCS; principal; 2023-06-03 14:35)
PROC: 0TJ98ZZ Inspection of Ureter, Via Natural or Artificial Opening Endoscopic (ICD-10-PCS; CPT 52352; 2023-06-03 14:35)
DX: N20.0 Calculus of kidney (principal); N17.9 Acute kidney failure, unspecified; Z68.41 Body mass index [BMI] 40.0-44.9, adult; E66.01 Morbid (severe) obesity due to excess calories; I48.0 Paroxysmal atrial fibrillation; E21.0 Primary hyperparathyroidism; I10 Essential (primary) hypertension; E03.9 Hypothyroidism, unspecified; E78.00 Pure hypercholesterolemia, unspecified; S20.211A Contusion of right front wall of thorax, initial encounter; K59.00 Constipation, unspecified; Z79.82 Long term (current) use of aspirin; Z79.890 Hormone replacement therapy; Z79.899 Other long term (current) drug therapy
CPT/HCPCS: 36415; 76000; 80048; 82360; 84443; 85025; 85027; 93005; 97110; 97162; 97166; 97530; 97535; J7030; J7120; A4216; C1758; C1769; C2617; J0744; J2405

== ENCOUNTER 2023-06-08 23:18 | Emergency (ER) | payer MEDICARE, SELFPAY ==
[2023-06-08 23:19] VITALS: BP 146/93; PULSE 118; RESP 20; TEMP 36.4; O2SAT 97; BMI 40.4
--- NOTE | 2023-06-08 23:27 | RAD_ITS ---
EXAM: XR ABDOMEN, 1 VIEW CLINICAL INDICATION: constipation TECHNIQUE: Frontal supine view of the abdomen/pelvis. COMPARISON: No relevant prior studies available. FINDINGS: LOWER THORAX: No acute pathology. GASTROINTESTINAL TRACT: Moderate amount of stool in the colon. Non-obstructive. No bowel or stomach distention. ORGANS: Large gallstones are identified. Small stone fragments in the expected location of the right kidney measuring up to 5 mm. BONES/JOINTS: No acute pathology. SOFT TISSUES: No acute pathology. TUBES, LINES AND DEVICES: Bilateral double-J ureteral stents. RAD/Abdomen Single View IMPRESSION: 1. Bilateral double-J ureteral stents. 2. Moderate amount of stool in the colon. 3. Large gallstones are identified. 4. Small stone fragments in the expected location of the right kidney measuring up to 5 mm. Electronically Signed: Oswaldo Snyder MD at 0:14 EDT ,
--- NOTE | 2023-06-08 23:35 | RAD_ITS ---
EXAM: XR CHEST, 1 VIEW CLINICAL INDICATION: chest pain TECHNIQUE: Frontal view of the chest. COMPARISON: No relevant prior studies available. FINDINGS: LUNGS AND PLEURAL SPACES: Mild bibasilar airspace disease and small pleural effusions. No pneumothorax. HEART: Unremarkable. Cardiac silhouette not enlarged. MEDIASTINUM: Central airways and mediastinal contour are unremarkable. BONES/JOINTS: Unremarkable. SOFT TISSUES: Unremarkable. RAD/Chest 1 View (Portable) IMPRESSION: Mild bibasilar airspace disease and small pleural effusions. Findings may indicate atelectasis or infection. Electronically Signed: Oswaldo Snyder MD at 0:24 EDT ,
--- NOTE | 2023-06-08 23:35 | EKG12_ITS ---
Test Reason : Constipation Blood Pressure : / mmHG Vent. Rate : 119 BPM Atrial Rate : 000 BPM P-R Int : 000 ms QRS Dur : 098 ms QT Int : 318 ms P-R-T Axes : 000 -10 018 degrees QTc Int : 447 ms Atrial fibrillation with rapid ventricular response Septal infarct , age undetermined Abnormal ECG Confirmed by CEDRIC MORELAND, HARVINDER ([id number]), newspaper editor DARRYL BEAN ([id number]) on 06/09/2023 1:19:47 PM Referred By: Silas Confirmed By:HARVINDER STEELE MD
--- NOTE | 2023-06-08 23:36 | EDS_ITS ---
HPI HPI - GI History of Present Illness Chief Complaint: Constipation Detail of Chief Complaint: Constipation and bilateral leg swelling. Informant: patient and spouse/S.O. Abdominal Pain/Flank Pain Onset: Days Context: Gradual Onset Timing: Continuous Nausea/Vomiting/Emesis GI Symptom: Positive for Nausea; Negative for Vomiting Severity: Mild Diarrhea/Melena/Hematochezia GI Symptom: Negative for Diarrhea, Melena or Hematochezia Associated Symptoms Associated Symptoms: Negative for Dysuria, Frequency, Hematuria or Urgency Narrative Narrative: 77-year-old female history of A-fib on metoprolol, hypertension and kidney stones. Last week she had 3 different procedures done for kidney stones. Has bilateral stents. She was hospitalized and discharged 2 days ago on Tuesday. Says she has been constipated for nearly a week. Has had very minimal bowel movements over that time. She also states that she is got a lot more leg swelling. Denies shortness of breath nor chest pain. Denies fevers. Her primary complaints of constipation but she also wanted evaluated for the leg swelling. Prior similar symptoms: No Recent Illness/Hospitalization: No PFSH PFSH Medical History Arthritis Atrial fibrillation with RVR Cataract Essential (primary) hypertension Fatigue Fibromyalgia H/O radioactive iodine thyroid ablation Hematuria Hyperparathyroidism Hypothyroidism Morbid obesity with BMI of 40.0-44.9, adult Palpitations Paroxysmal atrial fibrillation Primary hyperparathyroidism Pure hypercholesterolemia Vision loss of left eye Vision loss of right eye Home Medications cinnamon bark 500 mg capsule 500 mg PO DAILY DM 03/10/18 [History Last Taken 11/03/18 23:00] Just Barley 2 cap PO QHS vitamin supplement 11/05/18 [History Last Taken 11/03/18 23:00] magnesium 250 mg tablet 250 mg PO DAILY 09/06/19 [History Last Taken Unknown] levothyroxine 112 mcg tablet 112 mcg PO DAILY 10/29/20 [History Last Taken Unkno wn] aspirin 325 mg tablet 325 mg PO DAILY heart health 05/29/21 [History Last Taken Unknown] amlodipine 5 mg tablet 5 mg PO DAILY 02/22/22 [History Last Taken Unknown] lactobacillus combination no.9 4 billion cell capsule (Adult 50 Plus Probiotic) 4,000 mmu cells PO DAILY 02/22/22 [History Last Taken Unknown] omega 3 35 mg-dha 25 mg-epa 5 mg-fish oil 113.5 mg chewable tablet ([facility]-3 Gummy Fish) 1 tab PO DAILY 02/22/22 [History Last Taken Unknown] Nuban liquid irene 2 tsp PO DAILY 05/27/22 [History Last Taken Unknown] cholecalciferol (vitamin D3) 125 mcg (5,000 unit) capsule 125 mcg PO .M,W,F 10/28/22 [History Last Taken 05/25/23] metoprolol succinate 25 mg tablet,extended release 24 hr 12.5 mg (1/2 x 25 mg) PO MOWEFR 90 days #20 tabs 11/02/22 [Rx Last Taken 05/25/23] cascara sagrada 450 mg capsule 450 mg PO QMWF PRN constipation 12/07/22 [History Last Taken Unknown] hydrocodone-acetaminophen 5-325mg 5mg-325mg 1 tab PO Q6H PRN PRN Pain 3 days #10 TABLETS 05/26/23 [Rx Last Taken 05/30/23 08:00] ondansetron 4 mg disintegrating tablet 4 mg translingual Q6H PRN nausea and vomiting 05/30/23 [History Last Taken 05/30/23 07:30] ciprofloxacin HCl 500 mg tablet (Cipro) 500 mg PO BID #10 tabs 06/06/23 [Rx Last Taken Unknown] docusate sodium 100 mg capsule (Colace) 100 mg PO BID #14 caps 06/06/23 [Rx Last Taken Unknown] Allergy/AdvReac Type Severity Reaction Status Date / Time Iodinated Contrast Media Allergy Severe Chest Verified 06/08/23 23:27 tightness NSAIDS (Non-Steroidal Allergy Intermediate Other Verified 06/08/23 23:27 Anti-Inflamma tramadol Allergy Unknown PT UNSURE Verified 06/08/23 23:27 OF REACTION Penicillins Allergy Hives Verified 06/08/23 23:27 lisinopril AdvReac Unknown PT UNSURE Verified 06/08/23 23:27 OF REACTION albuterol AdvReac Anaphylaxis Verified 06/08/23 23:27 knee injections AdvReac Unknown Uncoded 12/07/22 13:37 Family History Brother Hypertension Diabetes Sister Diabetes Hypertension Other Arthritis Cancer Thyroid disorder Surgical History History of section Social History Smoking Status: Never smoker alcohol intake: never details: Rare substance use type: does not use what type of physical activity do you participate in: other ROS ROS ED ROS Narrative Bilateral leg swelling. Constipation. Review of Systems ROS Unobtainable: Denies due to encephalopathy Constitutional Constitutional ED: Denies chills or fever(s) ENT ENT ED: Denies ear pain Cardiovascular Cardiovascular: Denies chest pain Respiratory/Chest Respiratory/Chest: Denies cough or dyspnea Gastrointestinal Gastrointestinal: Reports constipation and nausea; Denies abdominal pain, diarrhea, melena or vomiting Genitourinary Genitourinary ED: Denies dysuria or hematuria Musculoskeletal Musculoskeletal: Denies arthralgias Integumentary Denies abscess Neurologic Neurologic: Denies headache(s) Psychiatric Psychiatric: Denies anxiety Endocrine Endocrinology: Denies polydipsia Hematologic/Lymphatic Hematologic/Lymphatic: Denies easy bleeding Allergic/Immunologic Allergic/Immunologic ED: Denies mouth swelling EXAM Physical Exam Narrative Exam Narrative: 77-year-old female no acute distress. Vital signs stable. She is tachycardic. She does not look septic toxic. at bedside. HEENT exam unremarkable. Neck nontender no JVD. Lungs clear to auscultation bilaterally. Heart tachycardic rate about 115. No appreciable murmur. Chest wall nontender. Abdomen soft nontender. Nondistended. No peritoneal signs. No obstruction. Positive bowel sounds. Soft. Moving all 4 extremities. 1+ pitting edema bilaterally. Neurologically she is awake and alert. Const Vital Signs: 06/08/23 23:19 06/08/23 23:53 Temperature 97.6 F L Temperature Source Temporal Pulse Rate 118 H Respiratory Rate 20 H Blood Pressure 146/93 H Blood Pressure Mean 110 Pulse Ox 97 Oxygen Delivery Method Room Air Room Air Positive well nourished and well developed; Negative for cachectic, contractures or unkempt General Appearance ED: well developed and NAD; Negative for unkempt, cachectic, contractures or pallor Nutritional Appearance: Negative for cachectic HEENT Reports moist mucous membranes normocephalic and atraumatic; Negative for trauma or tenderness Eyes PERRL and EOMs intact bilaterally General Eye ED: Negative for pale conjunctiva or scleral icterus Neck no lymphadenopathy, supple and no JVD General: Negative for tenderness Lymph Lymphatic: Negative for other Resp normal respiratory effort and clear to auscultation bilaterally Effort and Inspection: Negative for respiratory distress Auscultation: Negative for rales or rhonchi Cardio no murmurs; Negative for regular rate Cardio Narrative: Tachycardia rate of 115. Rate: tachycardic GI non-tender, non-distended and no masses Inspection: Negative for abdominal distention Auscultation: normoactive bowel sounds Palpation: soft; Negative for tender, guarding or rigid Back/Spine no CVA tenderness General Back: Negative for CVA tenderness Cervical Spine: Negative for cervical spine tenderness Thoracic Spine / Upper Back: Negative for thoracic spinal tenderness Lumbar Spine / Lower Back: Negative for lumbar spinal tenderness Coccyx: Negative for other Extremity Extremity Narrative: Bilateral 1+ pitting edema. General Extremety ED: Yes edema; Negative for tenderness General Extremity: edema Neuro CN's II-XII intact bilaterally and moves all extremities Sensorium / Orientation: alert, oriented to person and oriented to place; Negative for orientation impaired, confused, lethargic or stuporous Motor Exam: strength 5/5 throughout Psych mental status grossly normal and thought process normal Appearance: Negative for unkempt Attitude: No agitated Mood & Affect: Negative for depressed, anxious or tearful Skin no wounds General Skin Exam: Negative for jaundice or pallor Lesions: no lesions Rashes: no rashes Trauma: Negative for abrasion Nails: Negative for discolored MDM MDM MDM Narrative Medical decision making narrative: 77-year-old female with constipation for a week. KUB. She is also complaining of increased leg swelling and has a history of A-fib. She undergo cardiac work- up for that. Repeat exam at 12:56 AM. Patient was written for [facility] for her A-fib RVR. She did not want to take that. She wants to be treated for her constipation and be discharged home. We went over all of her test results. She will be given GoLytely for her constipation and discharged home. She knows to follow-up if her heart rate does not improve. If she is feeling worse and the swelling in her legs gets worse. History & Record Review Discussion w/independent historian: Patient Additional record(s) reviewed:: Prior inpatient record, Prior outpatient record, Prior ED visit and Prior labs Lab Data Attestation: I reviewed the patient's lab results. Lab results narrative: CBC unremarkable. White count 8. H&H of 14 and 46. Platelets 222. Electrolytes show a gap of 4. BUN and creatinine 18 and 1.2 which is her baseline. Glucose 157. Troponin is normal at 9. BNP is elevated at 343. All labs are consistent with prior lab work she has had. Labs: Laboratory Results - last 24 hr 06/08/23 23:50 WBC 8.3 RBC 4.83 Hgb 14.8 Hct 46.4 MCV 96.1 MCH 30.6 MCHC 31.9 L RDW Std Deviation 49.0 H RDW Coeff of Chris 14.1 Plt Count 222 MPV 10.3 Immature Gran % (Auto) 1.600 H Neut % (Auto) 75.7 H Lymph % (Auto) 12.0 L Trimble % (Auto) 7.9 Eos % (Auto) 2.4 Baso % (Auto) 0.4 Absolute Neuts (auto) 6.3 Absolute Lymphs (auto) 1.00 Nucleated RBC % 0 Sodium 140 Potassium 4.4 Chloride 110 H Carbon Dioxide 26.0 Anion Gap 4 L BUN 18 Creatinine 1.29 H Estim Creat Clear Calc 31.82 Est GFR (MDRD) Af Amer 51 L Est GFR (MDRD) Non-Af 42 L BUN/Creatinine Ratio 14.0 Glucose 157 H Calcium 10.9 H Troponin I High Sens 9 B-Natriuretic Peptide 343.7 H Radiography Chest X-Ray - ED: 1 View, Read by ED Physician, Normal, Heart, Mediastinum, Bony Structures, Chronic Changes, Right Effusion, Left Effusion and - (Small bilateral pleural effusions. Chronic changes.) Diagnostic Testing: Clinical Impression(s) from Imaging Studies KUB X-Ray 06/08/23 23:27 IMPRESSION: 1. Bilateral double-J ureteral stents. 2. Moderate amount of stool in the colon. 3. Large gallstones are identified. 4. Small stone fragments in the expected location of the right kidney measuring up to 5 mm. Electronically Signed: Oswaldo Snyder MD at 0:14 EDT , Chest X-Ray 06/08/23 23:35 IMPRESSION: Mild bibasilar airspace disease and small pleural effusions. Findings may indicate atelectasis or infection. Electronically Signed: Oswaldo Snyder MD at 0:24 EDT , Chest x-ray shows chronic changes. Single view portable, interpreted by myself. Shows small bilateral pleural effusions. Otherwise no acute process. No significant pulmonary edema KUB shows bilateral ureteral stents. Gallstones. Constipation. Interpreted both myself and the radiologist. Rhythm Strip Rhythm Strip: A-fib Rate: 119 Ectopy: None EKG Initial EKG: Attestation: I personally reviewed and interpreted this EKG as follows: Interpretation: No Acute Injury Pattern and Atrial Fibrillation Comments: Atrial fibrillation rate of 119. No acute signs of [place] or ischemia. Consistent with a prior EKG. Prior EKG tracings: available for review Prior: Unchanged Discharge Plan Triage Chief Complaint: Constipation ED Provider: Levi Rosen Dx/Rx/DC Orders Clinical Impression: Acute constipation, Edema, peripheral, History of renal calculi, Atrial fibrillation with rapid ventricular response Instructions: AFib, ED Constipation (Adult) Prescriptions: No Action aspirin 325 mg tablet 325 mg PO DAILY Hold Instructions: Order Changed magnesium 250 mg tablet 250 mg PO DAILY Hold Instructions: not taking levothyroxine 112 mcg tablet 112 mcg PO DAILY amlodipine 5 mg tablet 5 mg PO DAILY Hold Instructions: not taking Adult 50 Plus Probiotic 4 billion cell capsule 4,000 mmu cells PO DAILY Hold Instructions: no taking Rx Instructions: administer with a meal [facility]-3 Gummy Fish 35-25-5-113.5 mg tablet,chewable 1 tab PO DAILY Hold Instructions: not taking Nuban liquid irene liquid 2 tsp PO DAILY cholecalciferol (vitamin D3) 125 mcg (5,000 unit) capsule 125 mcg PO .M,W,F cascara sagrada 450 mg capsule 450 mg PO QMWF PRN (Reason: constipation) cinnamon bark 500 mg capsule 500 mg PO DAILY Hold Instructions: not taking Patient Comments: No longer taking Just Barley 2 cap PO QHS hydrocodone-acetaminophen 5-325 mg tablet 1 tab PO Q6H PRN PRN (Reason: Pain) 3 Days Qty: 10 0RF ondansetron 4 mg tablet,disintegrating 4 mg translingual Q6H PRN (Reason: nausea and vomiting) ciprofloxacin HCl [Cipro] 500 mg tablet 500 mg PO BID Qty: 10 0RF docusate sodium [Colace] 100 mg capsule 100 mg PO BID Qty: 14 0RF metoprolol succinate 25 mg tablet extended release 24 hr 12.5 mg PO MOWEFR 90 Days Qty: 20 3RF Rx Instructions: 12.5 mg PO daily on Tuesday, Tuesday, and Tuesday; Primary Care Provider: Kali Forrest Referrals: Kali Forrest MD [Primary Care Provider] - 3-5 Days Activity Restrictions/Additional Instructions: MiraLAX for your constipation. Plenty of fluids, fiber, fruits and vegetables and prune juice. May also use the GoLytely. Make sure that you are heart rate is controlled. If not follow-up with your doctor. If the leg swelling does not improve you are going to need further evaluation. It may be from your irregular heartbeat. Continue your current medications as per. Disposition Disposition: Home, Self Care
[2023-06-09 00:13] LABS: BNP,B-Type NATRIURETIC PEPTIDE 343.7 pg/mL (0-100)
[2023-06-09 00:16] LABS: Anion Gap 4 (5-15); BUN 18 mg/dL (7-18); Calcium,Total 10.9 mg/dL (8.5-10.1); Chloride 110 mmol/L (98-107); Creatinine, Serum 1.29 mg/dL (0.55-1.02); EST Glomerular Filtration Rate 42 mL/min (>60); Est Glom Filt Rate - Afr Amer 51 mL/min (>60); Estimated Creatinine Clearance 31.82 ml/min; Glucose 157 mg/dL (74-106); Potassium 4.4 mmol/L (3.5-5.1); Sodium Level 140 mmol/L (136-145); Troponin-I HS 9 pg/mL (3.0-54.0)
[2023-06-09 00:17] LABS: Absolute Neutrophil Count 6.3 X10^3/uL (2.0-7.7); Basophil# 0.03 X10^3/uL; Basophil% 0.4 % (0-1); Eosinophils% 2.4 % (0-5); Hematocrit 46.4 % (37-47); Hemoglobin 14.8 g/dL (12.0-15.0); Mean Corp Hgb Conc 31.9 g/dL (32-36); Mean Corpuscular Hgb 30.6 pg (27.0-32.0); Mean Corpuscular Volume 96.1 fL (81-99); Mean Platelet Vol. 10.3 fl (6.2-12.0); Monocyte# 0.66 X10^3/uL; Monocyte% 7.9 % (0-10); NRBC Flagged by Analyzer 0 % (0-5); Neutrophil % 75.7 % (47-70); Platelet Count 222 K/mm3 (150-450); RBC Distribution Width CV 14.1 % (11.6-14.6); Red Blood Count 4.83 M/mm3 (4.2-5.4); White Blood Count 8.3 K/mm3 (4.4-11.0)
--- NOTE | 2023-06-09 00:38 | ED.RN ---
Pt refusing Cardizem bolus at this time. RN explained risks/ benefits of not receiving mediation. Pt stated she would like to wait until the last second to recieve medication if she were to get it. Pt stated that she just wanted an enema and to be discharged. Dr. Rosen notified.
[2023-06-09 01:30] VITALS: PULSE 95; RESP 18; O2SAT 95
[2023-06-09] MEDS: Electrolyte Solution/Peg's 4000 ML 2000 ML PO (01:34)
== END 2023-06-09 01:30 | disposition home or self-care (01) ==
PROVIDERS: Emergency Provider Emergency Medicine; PCP Family Medicine; Visit Provider Emergency Medicine
DX: K59.00 Constipation, unspecified (principal); I48.0 Paroxysmal atrial fibrillation; R11.0 Nausea; R10.9 Unspecified abdominal pain; R60.0 Localized edema; E78.00 Pure hypercholesterolemia, unspecified; I10 Essential (primary) hypertension; M79.89 Other specified soft tissue disorders; Z79.899 Other long term (current) drug therapy; Z87.442 Personal history of urinary calculi
CPT/HCPCS: 71045; 74018; 80048; 83880; 84484; 85025; 93005; 99284; A4216

== ENCOUNTER → 2023-08-02 | Outpatient (CLI) | payer MEDICARE, SELFPAY ==
--- NOTE | 2023-08-02 10:40 | BD_ITS ---
STUDY: DUAL ENERGY X-RAY ABSORPTIOMETRY / DXA REASON FOR EXAM: Female, 77 years old. hyperparasite -- hyper para, post menopause TECHNIQUE: Bone Mineral Density (BMD) measurements of lumbar spine and bilateral hips were obtained. COMPARISON: None. FINDINGS: Lumbar Spine (L1-L4): g/cm2 (1.104) / T-score (0.5) / Z-score (3.2) Findings are suggestive of normal bone density with a low fracture risk. Left Femur Total: g/cm2 (0.814) / T-score (-1.1) / Z-score (1.0) Left Femoral Neck: g/cm2 (0.752) / T-score (-0.9) / Z-score (1.4) Right Femur Total: g/cm2 (0.792) / T-score (-1.2) / Z-score (0.8) Right Femoral Neck: g/cm2 (0.780) / T-score (-0.6) / Z-score (1.7) BD/Dexa Bone Density Study IMPRESSION: The patient is considered osteopenic as outlined below according to World Mike Organization (WHO) criteria with a moderate fracture risk. Reference Information: The T-score is the number of standard deviations above or below the standard which is normal for young adults at their peak bone mineral density. The World Health Organization (WHO) interprets the T-scores as follows: Above -1 Normal bone density Between -1 and -2.5 Osteopenia Equal to / or below -2.5 Osteoporosis As a practical clinical guideline, osteopenia may be graded as follows: Mild -1 through -1.5 Moderate -1.6 through -2.0 Severe -2.1 through -2.4 The Z-score is the number of standard deviations above or below age-matched controls. A Z-score of less than -1.5 would be considered abnormal. References: 1. NIH Osteoporosis and Related Bone Diseases www osteo.org 2. International Society for Clinical Densitometry www iscd.org 3. National Osteoporosis Foundation www nof.org Electronically Signed: Jomar Iqbal MD at 12:51 EDT ,
== END | disposition home or self-care (01) ==
LOC: OPBD 10:26
PROVIDERS: PCP Family Medicine; Referring Provider Internal Medicine Endocrinology, Diabetes & Metabolism; Visit Provider Internal Medicine Endocrinology, Diabetes & Metabolism
DX: Z78.0 Asymptomatic menopausal state (principal); E21.0 Primary hyperparathyroidism
CPT/HCPCS: 77080

== ENCOUNTER 2023-08-16 05:42 | Day surgery (SDC) | payer MEDICARE, SELFPAY ==
[2023-08-16] VITALS (11 sets, daily range): BP systolic 124–159; BP diastolic 85–113; PULSE 88–103; RESP 16–18; TEMP 35.9–37.2; O2SAT 20–100; BMI 39.6
--- NOTE | 2023-08-16 | PARA_PTH ---
PATIENT: EMA ANAYA [place] [facility][id number] AGE/SX: 77/F ROOM: RE08/16/[address]: Dr. Brayden Simon MD : 1945 BED: DIS: 08/16/2023 SPEC #: [id number] RECD: 08/16/23 09:09 STATUS: SOCORRO SAMPSON #: [id number] SENDY: 08/16/23 00:[address]: Brayden Simon DEPT: SURGICAL PATHOLOGY RECD BY: Sobeida Tena ENTERED: 08/16/23 09:43 SP TYPE: PARATHY OTHR DR: Dr. aKli Forrest MD Tissues: A - Parathyroid B - Parathyroid C - Parathyroid Procedures: Frozen Section (charge) Surgery Specimen Level IV HEADER OPERATION: Parathyroidectomy PRE-OP DIAGNOSIS: Primary hyperparathyroidism TISSUE SUBMITTED: A - Right inferior parathyroid, frozen section, B - Rule out right parathyroid, frozen section, C - Right superior parathyroid, frozen section FROZEN SECTION DIAGNOSIS A. Right inferior parathyroid gland, excision: Parathyroid gland tissue (0.3 gm). B. Rule out right parathyroid, biopsy: A piece of fibrous tissue. C. Rule out right superior parathyroid tissue, biopsy: A piece of fibrous tissue. Parathyroid tissue is not identified. MARGARET:nevaeh 08/16/2023 MICROSCOPIC DIAGNOSIS A. Right inferior parathyroid, parathyroidectomy: Hyperplastic parathyroid gland tissue (0.3 gm). B. Rule out right parathyroid tissue, biopsy: A piece of fibroadipose tissue. Parathyroid gland tissue is not identified. C. Rule out right superior parathyroid tissue, biopsy: A piece of fibroadipose tissue. Parathyroid gland tissue is not identified. MARGARET:nevaeh 08/18/2023 MICROSCOPIC DESCRIPTION Slides are reviewed. GROSS DESCRIPTION A - Received fresh for frozen section diagnosis labeled with the patient's name is a specimen designated right inferior parathyroid. The specimen consists of an ovoid piece of brownish nodule measuring 1.0 x 0.6 x 0.5 cm and weighing 0.3 gm. The specimen is bisected and submitted entirely for frozen section diagnosis in one cassette. B - Received fresh for frozen section diagnosis labeled with the patient's name is a specimen designated rule out right parathyroid. The specimen consists of a piece of lovett-pink soft tissue measuring 0.2 x 0.2 x 0.1 cm. The entire specimen is submitted in one cassette for frozen section diagnosis. C - Received fresh for frozen section diagnosis labeled with the patient's name is a specimen designated right superior parathyroid. The specimen consists of a piece of lovett-pink soft tissue measuring 0.2 x 0.2 x 0.1 cm. The entire specimen is submitted in one cassette for frozen section diagnosis. / SJ:rg 08/16/2023 TC:5 CPT: 71950 x3, 07793 x3
[2023-08-16] MEDS: Lactated Ringers 1,000 ML 15 ML IV ×2 (06:59→10:00)
[2023-08-16 07:10] LABS: Bedside Glucose 110 mg/dL (74-106)
--- NOTE | 2023-08-16 07:12 | HP.PCM_ITS ---
History and Physical Date of Admission: 08/16/23 Date of Service: 07/19/23 MR#: [id number] Acct: [id number] Name: EMA ANAYA Rep #: [id number] : 1945 Provider: Dr. Brayden Simon MD Age/Sex: 77/F Location: [facility] Status: Signed Intake Vital Signs 06/08/2323:19 07/19/2308:59 Height 5 ft 5 in Weight: 243 lb 2.718 oz BMI 40.4 BP 146/93 H 148/98 H Blood Pressure Location Rt brachial Position Sitting Respiration 20 H 17 Pulse 118 H 118 H Pulse Source Monitor Temp 97.6 F L Temp Source Temporal Pulse Oximetry (%) 97 97 Oxygen Delivery Method room air Intake Visit Reasons: DISCUSS PARATHYROID SURGERY Chief Complaint: discuss parathyroid surgery Is patient in pain?: No Allergies Iodinated Contrast Media Allergy (Severe, Verified 07/19/23 09:01) Chest tightnessNSAIDS (Non-Steroidal Anti-Inflamma Allergy (Intermediate, Verified 07/19/23 09:01) Othertramadol Allergy (Unknown, Verified 07/19/23 09:01) PT UNSURE OF REACTIONPenicillins Allergy (Verified 07/19/23 09:01) Hiveslisinopril Adverse Reaction (Unknown, Verified 07/19/23 09:01) PT UNSURE OF REACTIONalbuterol Adverse Reaction (Verified 07/19/23 09:01) Anaphylaxis Medications cinnamon bark 500 mg capsule 500 mg PO DAILY DM 03/10/18 [History Confirmed 07/19/23] Just Barley 2 cap PO QHS vitamin supplement 11/05/18 [History Confirmed 07/19/23] levothyroxine 112 mcg tablet 112 mcg PO DAILY 10/29/20 [History Confirmed 07/19/23] Nuban liquid irene 2 tsp PO DAILY 05/27/22 [History Confirmed 07/19/23] cholecalciferol (vitamin D3) 125 mcg (5,000 unit) capsule 125 mcg PO .M,W,F 10/28/22 [History Confirmed 07/19/23] metoprolol succinate 25 mg tablet,extended release 24 hr 12.5 mg (1/2 x 25 mg) PO MOWEFR 90 days #20 tabs 11/02/22 [Rx Confirmed 07/19/23] sarkis higginsrada 450 mg capsule 450 mg PO QMWF PRN constipation 12/07/22 [History Confirmed 07/19/23] aspirin,buffered (calcium carbonate-magnesium) 325 mg tablet (Bufferin) 1 tab PO DAILY 07/19/23 [History Confirmed 07/19/23] COUNTS INCLUDE 234 BEDS AT THE [facility] Medical History Arthritis Atrial fibrillation with RVR Cataract Essential (primary) hypertension Fatigue Fibromyalgia H/O radioactive iodine thyroid ablation Hematuria Hyperparathyroidism Hypothyroidism Morbid obesity with BMI of 40.0-44.9, adult Palpitations Paroxysmal atrial fibrillation Primary hyperparathyroidism Pure hypercholesterolemia Vision loss of left eye Vision loss of right eye Surgical History History of section Family History Brother Hypertension DiabetesSister Diabetes HypertensionOther Arthritis Cancer Thyroid disorder Social History Smoking Status: Never smoker alcohol intake: never details: Rare substance use type: does not use what type of physical activity do you participate in: other HPI HPI HPI: Patient is a 76-year-old female who presents for hyperparathyroidism. They are referred from from Dr. Grider. Last visit 11/18/2022. Patient reports today with her . She confirms that she has not undergone requested DEXA imaging as she is concerned about a possible allergy to the contrast medium. She also reports what is found in the record that she had required a number of urologic procedures since our last visit due to the presence of bilateral kidney stones. She notes that she had 3B kidney stones on the left and one kidney stone on the right. She then describes that the had to drill a hole and use a laser to break up the stones. She reports some 3 procedures in the span of a week or required. She also notes some difficulty with the anesthesia and reports that she was somewhat uncooperative following her last procedure due to difficulty clearing the anesthetic. Mrs. Anaya reports that she saw cardiology and confirms that she is in atrial fibrillation all the time. It was suggested to her that her hyperparathyroidism may have some bearing on this condition. Lastly, Mrs. Llamas states she recently saw Dr. Keita of the [facility] and was told that her calcium is now within normal limits. Patient states that she has had a diagnosis of hyperparathyroidism for many years, but is unable to say exactly when this diagnosis was actually made. She states that she has had thyroid trouble going way back. She reports a history of radioactive iodine administration sometime between the years 4544-7150. She does acknowledge that she had a diagnosis of Graves' at that time. She also reports a family history of Graves' on her father side. She states that she has always question whether or not there was some link between her thyroid disorder and hyperparathyroidism. When patient was first told that she had high calcium, she was advised to drink plenty of water to flush the calcium. She believes this diagnosis was first given to her through the [facility], but cannot be sure. Patient has a history of osteoporosis, but she states the bone density scan was performed many years ago and she has not had follow-up testing. She acknowledges that a test was ordered with Dr. Grider, but she states that she has been overwhelmed by the number of test she has to complete and has not completed this request. Patient has no history of pathologic fractures. Patient has no history of kidney stones?although she suggests there may have been calcium deposits noted on past imaging of her kidneys. Patient has no history of frequent dental caries or chipped teeth. Patient has a history of brittle fingernails. Patient has no history of GERD. Patient has a history of hypertension. Additional symptoms include: Difficulty concentrating (more in the past 2 months), fatigue, thirst, and constipation. Patient has a history of prior radiation exposure (in relation to her hyperthyroidism). As above, she has a family history of Graves' disease. Patient does not have a diet high in dairy?and states she eats calcium only through a little bit of cheese. Patient's current labs are calcium: 11.7 mg/dL (10/21/2022) range of 10.7-12.0 since 2012, Vitamin D: 31.9 ng/mL (10/21/2022), Ionized calcium: [Value]mg/dL [date], PTH: 209 pg/mL (10/21/2022) [(Range of: over time period)], Phosphorus: [Value] [date] Current medications include: No calcium supplementation. Imaging has been done sestamibi parathyroid scan on 12/03/2019 which localized a probable adenoma on the right side. Dr. Grider also ordered a thyroid ultrasound which was performed on 11/03/2022 and demonstrated a probable parathyroid adenoma posterior and inferior to the right thyroid lobe measuring 9 x 6 mm. Patient [has/has not] had DEXA imaging [on date] [which showed: Imaging findings]. Patient [has/has not] had renal imaging [on date] [which showed: Imaging findings]. Patient additionally reports a history of atrial fibrillation. She states that she is in atrial fibrillation right now she feels tired. She notes that anticoa gulation was recommended, but she declined this recommendation and simply stated she does not take it for me. She follows with Dr. Galvan and cardiology for this issue. She notes that she had an echo in February, but is unsure what the result was. She does report that she had an allergy to the dye used during that study. She admits to more recent shortness of breath and finds her self fatigu ed simply after walking to the bathroom with her walker. ROS General General: Yes weight change and fatigue; No appetite, colon cancer, breast cancer or weakness HEENT HEENT: Yes difficulty swallowing; No eye injury, eye surgery, swollen glands or hoarseness Endo Endocrine: Yes thyroid disease and diabetes mellitus; No thyroid cancer, Hair loss, heat intolerance or cold intolerance Skin Skin: No rash or changing moles Musc Musculoskeletal: Yes back problems, arthritis and rheumatoid arthritis; No gout or joint pain Cardio Cardiovascular: Yes atrial fibrillation and high blood pressure; No murmur, pacemaker, heart disease, heart attack, heart stent, palpitations, shortness of breat with exertion or chest pain Psych Psychiatric: Yes anxiety; No depression or hearing voices Resp Respiratory: Yes shortness of breath, No sleep apnea, No cough, No COPD, No asthma, No emphysema and No wheezing Gastro Gastrointestinal: No abdominal pain, No nausea or vomiting, Yes diarrhea, Yes constipation, No blood in stool, No acid reflux, No hemorrhoids, No ulcers, No gallbladder problem and No black,tarry stools Diaz Hematologic: No blood thinners, No blood disorders, No bleeding, No anemia and No blood clots Neuro Neurologic: Yes numbness, Yes tingling and No weakness Exam Const General: comfortable and no acute distress Orientation: alert, awake and oriented x3 Other: Overall cooperative but take some convincing of certain points Neck Other: Supple, nontender Assessment and Plan Assessment and Plan (1) Primary hyperparathyroidism: Status: Acute Comment: This is a 76-year-old female with a past history of Graves' disease status post AMBROCIO ablation and a current diagnosis of primary hyperparathyroidism who presents for surgical evaluation. Patient apparently has had this diagnosis for a number of years, but has only been intermittently compliant with work-up and recommendations. She appears to have a number of signs and symptoms related to this diagnosis including osteoporosis, incidental nephrolithiasis, as well as many potential neuropsychiatric links. Diagnosis has been clearly made biochemically and localization completed with concordant sestamibi (from November 2019) and thyroid ultrasound from October 2022). There appears to be clear evidence of a parathyroid adenoma in the right inferior position. I have dis cussed with patient a broad overview of this diagnosis and that there is a concordance with thyroid pathology and approximately 20% of patients. Patient underwent cardiac clearance since her last evaluation and this has been granted. There is some suspicion that her hyperparathyroidism may be playing into her persistent arrhythmia. I certainly think that there is a benefit to be leveraged with her risk for coronary atherosclerosis. Additionally, patient has had recurrence of her nephrolithiasis and required 3 procedures in May to deal with these kidney stones. This resulted in temporary deterioration of her renal function. She is advised that to try to mitigate her risk going forward her hyperparathyroidism should be dealt with operatively. To this end, I maintain the recommendation to proceed with minimally invasive parathyroidectomy, however, patient is advised that this surgery could become more involved if her PTH does not fall predictably. I lastly have shared with her that my request to obtain preoperative bone density testing to establish a baseline. Initially reluctant, Mrs. Anaya does concede to my point and states that she will undergo this testing. We will plan to schedule her surgery a little ways out so that she is able to obtain this imaging. Plan: ? Tentatively plan for minimally invasive parathyroidectomy with intraoperative nerve and PTH monitoring on 08/16/2023 ? Preoperatively obtain DEXA imaging I have examined the patient and the H&P has been reviewed. There are no clinical changes since date of exam. Procedure and post procedure expectations were reviewed?including wound care instructions. Patient and her had the opportunity ask questions which were answered to their satisfaction. We will plan to obtain a preoperative PTH and proceed to the operating room for parathyroidectomy as discussed above.
[2023-08-16 07:33] LABS: PTHIN 300.3 pg/mL (18.4-80.1)
[2023-08-16 09:33] LABS: PTHIN 63.8 pg/mL (18.4-80.1)
[2023-08-16 09:39] LABS: PTHIN 39.8 pg/mL (18.4-80.1)
[2023-08-16] MEDS: Bupivacaine 0.25% 30 ML Vial (10:00)
[2023-08-16 10:08] LABS: PTHIN 21.3 pg/mL (18.4-80.1)
--- NOTE | 2023-08-16 10:24 | PCM.OPRPT ---
Report of Operation Date of Procedure: 08/16/23 Pre-Operative Diagnosis: Primary hyperparathyroidism Post-Operative Diagnosis: Primary hyperparathyroidism secondary to right inferior parathyroid adenoma Surgery/Procedure Performed:: Minimally invasive parathyroidectomy (right inferior) Description of Surgical Findings:: ? Blanched thyroid gland with numerous adhesions to the overlying strap muscles and even adjacent to carotid secondary to prior radioactive iodine ablation ? Enlarged, bulbous?hearing right inferior parathyroid gland with single polar attachments posterior and inferior to the right thyroid lobe ? 2 candidate lesions for right superior parathyroid gland (the latter marked with a clip), however, frozen section deemed this to be simply fibrous tissue ? Positive Nims signal for right recurrent laryngeal nerve Surgeon: Brayden Simon stockbroking dealer: Floyd Llanes Type of Anesthesia: General/Supplemental Anesthesiologist: Jesse Erickson Specimen's removed: 1. Rule out right inferior parathyroid (confirmed as parathyroid tissue weighing 300 mg) 2. Rule out parathyroid (reported as fibrous tissue) 3. Rule out right superior parathyroid (reported as fibrous tissue) Estimated Blood Loss (mL): 15 Description of Procedure: After appropriate identification in the preoperative holding area the patient was brought to the operating room where she was positioned supine on the operating room table. There she was induced with general endotracheal anesthetic. Of note, a preoperative PTH had been obtained and was reported as 300.3. Patient was then intubated using a Nims tube and glide a scope to ensure coaptation between the vocal cords and the Nims tube electrodes. A resistance check confirmed appropriate function of the tube after the electrodes were properly connected to the monitoring box. Patient was then positioned in cervical extension, but adequately supporting the occiput. [He/she] was prepped and draped in the usual sterile fashion and a formal timeout followed to confirm patient and the procedure to be performed. A local block was produced with infiltration of local anesthetic and a 4cm transverse incision was made. This was deepened with the use of electrocautery through the platysma. Ultimately the strap muscles were exposed and were divided along their raphe with electrocautery. I then used blunt dissection to free the sternothyroid muscle from the thyroid capsule of the right thyroid lobe deeply. The strap muscles were from one another as I proceeded with dissection laterally towards the patient's right internal jugular vein. Once this structure was sufficiently exposed I obtained a baseline central vein PTH level. This ultimately returned at 3052. For the interim I returned to the patient's neck and elevated the inferior pole of the right thyroid lobe and palpated deeply to it. It became immediately apparent that patient had a large parathyroid gland located just deeply and inferiorly to this pole. Careful blunt dissection was employed to free the structure from its surrounding soft tissue attachments until it was then circumferentially freed so that it remains suspended by its vascular pole only. At this point the vascular pole was completely skeletonized and was cauterized before the specimen was sharply amputated. This specimen was passed off the field for frozen section confirmation. (Later, pathology telephoned the room to notify us that indeed this represented a large parathyroid gland weighing 300 mg). As we awaited this result, I irrigated the surgical cavity with sterile water and examined for hemostasis. Finding hemostasis to be intact after selective application of electrocautery, I developed the tracheoesophageal groove bluntly and confirmed an intact signal from our left recurrent laryngeal nerve using our Nims monitor. I also spent some of the intervening time trying to identify a right superior parathyroid gland. Two potential candidates were sharply removed and sent as frozen sections but both returned as fibrous tissue. The second of these results was marked with a titanium clip in the mid polar region of the posterior right thyroid lobe. Right internal jugular ex vivo blood draws were made with a 22-gauge needle and syringe at 5, 10, and 15 minutes. Ultimately these labs returned and were reported as 63.8, 49, and 39.8, respectively. Unfortunately there was some ambiguity with the order with which the lab received these results so I did obtain a fourth level significantly after the ex vivo time on our parathyroid adenoma and this value returned at 21.3. Satisfied with this result, the case was terminated and hemostasis was once again confirmed in the surgical bed around the thyroid gland as well as laterally over the access point for the right internal jugular vein. A small piece of Surgicel was placed in the cavity to help facilitate any mild oozing. Then I performed closure of the neck in layers. The strap muscles were run with a 3-0 Vicryl suture to reapproximate the raphe, but a gap was left in the inferiormost portion of the strap muscles. Then the platysmal layer was reapproximated with interrupted 3-0 Vicryl. Additional local anesthetic was instilled. The skin was closed using a running 4-0 Monocryl in a subcuticular fashion. Steri-Strips and Telfa OpSite was applied as a dressing. Patient was then awoken from general anesthetic and taken to PACU for ongoing recovery. Grafts/Implants Used: None Complications None Admit VTE Documentation VTE Mechan Device Prophylaxis: SCD's
--- NOTE | 2023-08-16 10:59 | DCINST_ITS ---
Discharge Instructions Diet Discharge Diet: No restrictions (However recommend a liquid to soft diet initially postoperatively) Activity Discharge Activity: May Not Drive (While it remains difficult to check blind spots quickly) May shower in (days): 2 Ice area for (Minutes): 20 Lifting Restrictions: No lifting greater than 15 pounds for 2 weeks after surgery Additional Activity Instructions:: Patient should keep head elevated and practice range of motion exercises daily Dressing / Incision Call your doctor if your incision/area has: Continuous Slow Oozing, Sudden Increased Bleeding, Increased Pain/ Swelling, Increased Redness and Swelling at the incision site Call your doctor if you observe: Numbness or Tingling Remove Dressing in: 2 days (Please leave Steri-Strips intact until they fall off spontaneously or are taken off at your follow-up visit) Cleanse incision/area with: Soap & Water Follow Up Care Please Follow Up With: Brayden Simon MD When: 7 days postop Test Results: Test results from this visit will be discussed in further detail at your follow- up appointment, if applicable. Discharge Plan Admission Primary Reason for Your Visit: Parathyroidectomy Attending Provider: Brayden Simon Primary Care Provider: Kali Forrest Instructions Additional Instructions / Restrictions: Patient should take 1 regular strength Tums daily and then an additional tablet if experiencing numbness or tingling (more than patient's usual) of her fingertips, toes, or about her mouth and notify general surgery office as soon as possible. Patient should plan to present to the lab prior to her follow-up visit for repeat labs the day of her outpatient follow-up. Discharge Orders/Prescriptions Prescriptions: No Action levothyroxine 112 mcg tablet 112 mcg PO DAILY Nuban liquid irene liquid 2 tsp PO DAILY cholecalciferol (vitamin D3) 125 mcg (5,000 unit) capsule 125 mcg PO .M,W,F Just Barley 2 cap PO QHS aspirin [Adult Low Dose Aspirin] 81 mg tablet,delayed release (DR/EC) 81 mg PO DAILY metoprolol succinate 25 mg tablet extended release 24 hr 12.5 mg PO MOWEFR 90 Days Qty: 20 3RF Rx Instructions: 12.5 mg PO daily on Tuesday, Tuesday, and Tuesday; Other Ambulatory Orders: 12 Lead EKG (Routine) Timeframe: [id number] Location: None Selected Ordered By: Dr. Jesse Erickson Referrals / Follow Up: Kali Forrest MD [Primary Care Provider] - Disposition Disposition (needs filled in before D/C Order can be placed): Home, Self Care
[2023-08-16 12:40] LABS: Bedside Glucose 117 mg/dL (74-106)
[2023-08-16] MEDS: Acetaminophen 500 MG Tablet 1000 MG PO (12:49)
== END 2023-08-16 14:54 | disposition home or self-care (01) ==
LOC: SDC 05:43 → AC 05:44
PROVIDERS: PCP Family Medicine; Referring Provider Surgery; Visit Provider Surgery
PROC: (CPT 60500; principal; 2023-08-16 07:15)
DX: E21.0 Primary hyperparathyroidism (principal); M06.9 Rheumatoid arthritis, unspecified; I48.0 Paroxysmal atrial fibrillation; Z68.41 Body mass index [BMI] 40.0-44.9, adult; E66.01 Morbid (severe) obesity due to excess calories; E11.9 Type 2 diabetes mellitus without complications; I10 Essential (primary) hypertension; E78.00 Pure hypercholesterolemia, unspecified; D35.1 Benign neoplasm of parathyroid gland; Z79.890 Hormone replacement therapy; Z79.899 Other long term (current) drug therapy; Z79.82 Long term (current) use of aspirin; Z87.442 Personal history of urinary calculi; E03.9 Hypothyroidism, unspecified
CPT/HCPCS: 60500; 82962; 83970; 88305; 88331; 93005; A4648; J7120; J2405

== ENCOUNTER → 2023-08-23 | Outpatient (CLI) | payer MEDICARE, SELFPAY ==
[2023-08-23 16:44] LABS: Calcium,Total 8.9 mg/dL (8.5-10.1)
== END | disposition home or self-care (01) ==
LOC: LAB 16:07
PROVIDERS: PCP Family Medicine; Referring Provider Surgery; Visit Provider Surgery
DX: E21.0 Primary hyperparathyroidism (principal)
CPT/HCPCS: 36415; 82310; 83970

== ENCOUNTER → 2023-10-26 | Outpatient (CLI) | payer MEDICARE, SELFPAY ==
[2023-10-26 14:05] LABS: Calcium,Total 8.9 mg/dL (8.5-10.1)
== END | disposition home or self-care (01) ==
LOC: LAB 12:08
PROVIDERS: PCP Family Medicine; Referring Provider Surgery; Visit Provider Surgery
DX: E89.2 Postprocedural hypoparathyroidism (principal); E21.3 Hyperparathyroidism, unspecified
CPT/HCPCS: 36415; 82310; 83970

== ENCOUNTER → 2024-04-19 | Outpatient (CLI) | payer MEDICARE, SELFPAY ==
[2024-04-19 13:36] LABS: PTHIN 59.2 pg/mL (18.4-80.1)
[2024-04-19 13:51] LABS: Calcium,Total 9.5 mg/dL (8.5-10.1)
== END | disposition home or self-care (01) ==
LOC: LAB 12:39
PROVIDERS: PCP Family Medicine; Referring Provider Surgery; Visit Provider Surgery
DX: E21.0 Primary hyperparathyroidism (principal)
CPT/HCPCS: 36415; 82310; 83970

== ENCOUNTER 2024-12-07 10:49 | Emergency (ER) | payer MEDICARE, SELFPAY ==
[2024-12-07 10:50] VITALS: BP 145/94; PULSE 120; RESP 16; TEMP 36.6; O2SAT 99; BMI 43.4
[2024-12-07 10:55] VITALS: O2SAT 100
--- NOTE | 2024-12-07 10:59 | ED.RN ---
PT BROUGHT IN BY EMS AND STATES SHE FELL TWICE TODAY AT HOME. EMS STATED 3X. PT IS [place] AT TIMES. PT HAS SOME BIZARRE BEHAVIOR AND THIS NURSE IS UNSURE IF THIS IS BASELINE FOR PT. PT IS IN PAIN SO IT COULD BE RELATED. PT MOVES AROUND OFTEN WITH HAND AND MOUTH MOVEMENTS. PT UNSURE IF FAMILY OR WILL BE COMING. PT LIVES AT HOME WITH AND USES A WALKER TO GET AROUND. DENIES HISTORY OF FALLS BEFORE TODAY. PT HAS A LARGE BRUISE TO THE LEFT LEIJA AREA. DOES NOT LOOK LIKE IT APPEARED TODAY.
--- NOTE | 2024-12-07 11:25 | CT_ITS ---
STUDY: CT BRAIN WITHOUT CONTRAST REASON FOR EXAM: Female, 79 years old. Injury due to a fall. RADIATION DOSAGE (If Supplied By Facility): CTDIvol = ( 44.99 ) mGy, DLP = ( 829.85 ) mGycm TECHNIQUE: Transaxial CT imaging of the brain was performed without administration of intravenous contrast material. Individualized dose optimization techniques were used for this CT. COMPARISON: No relevant priors. FINDINGS: Normal soft tissue structures. There is hyperostosis frontalis internus. There is mild cerebral atrophy with widening of the extra-axial spaces and ventricular dilatation. There are areas of decreased attenuation within the white matter tracts of the supratentorial brain, consistent with microvascular disease changes. Normal basal ganglia and thalami. Normal brainstem. There is mild cerebellar atrophy. There is no intracranial hemorrhage. There are no findings of an acute ischemic infarction. Normal visualized paranasal sinuses. CT/Brain/Head without Contrast IMPRESSION: Chronic involutional changes of the brain. Electronically Signed: Jomar Iqbal MD at 11:58 EST ,
--- NOTE | 2024-12-07 11:36 | ED.VIS.FALL ---
HPI HPI - Fall History of Present Illness Chief Complaint: Fall Informant: patient, family and EMS Narrative Narrative: 79-year-old female reportedly fell on her way to the bathroom today while using her walker. She notes a large hematoma to the lateral proximal left leg. She notes pain in the left hip. notes she struck her head but did not lose consciousness. She states she is not on any blood thinners but does take aspirin. 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 Cataract Fibromyalgia Primary hyperparathyroidism H/O radioactive iodine thyroid ablation Pure hypercholesterolemia Fatigue Essential (primary) hypertension Paroxysmal atrial fibrillation Hematuria Palpitations Hyperparathyroidism Arthritis Atrial fibrillation with RVR Hypothyroidism Morbid obesity with BMI of 40.0-44.9, adult Home Medications ?Medication ?Instructions ?Recorded ?Last Taken ?Type levothyroxine 112 mcg tablet 112 mcg PO DAILY 10/29/20 Unknown History metoprolol succinate 25 mg 12.5 mg (1/2 x 25 mg) PO MOWEFR 90 11/15/23 Unknown Rx tablet,extended release 24 hr days #20 tabs aspirin 325 mg tablet 162.5 mg PO DAILY 06/14/24 Unknown History cholecalciferol (vitamin D3) 125 125 mcg PO MOWEFR 06/14/24 Unknown History mcg (5,000 unit) capsule cinnamon bark PO 06/14/24 Unknown History oxycodone-acetaminophen 5 mg-325 1 tab PO Q6H PRN PRN Pain 3 days 12/07/24 Unknown Rx mg tablet #12 TABLETS Allergy/AdvReac Type Severity Reaction Status Date / Time Iodinated Contrast Media Allergy Severe Chest Verified 06/14/24 13:41 tightness NSAIDS (Non-Steroidal Allergy Intermediate Other Verified 06/14/24 13:41 Anti-Inflamma tramadol Allergy Unknown PT UNSURE Verified 06/14/24 13:41 OF REACTION Penicillins Allergy Hives Verified 06/14/24 13:41 lisinopril AdvReac Unknown PT UNSURE Verified 06/14/24 13:41 OF REACTION albuterol AdvReac Anaphylaxis Verified 06/14/24 13:41 Family History Brother Hypertension Diabetes Sister Diabetes Hypertension Other Arthritis Cancer Thyroid disorder Surgical History S/P parathyroidectomy History of section Social History Smoking Status: Never smoker alcohol intake: never details: Rare substance use type: does not use what type of physical activity do you participate in: other ROS ROS ED Constitutional Constitutional ED: Denies chills or weight loss Eyes Eyes: Denies change in vision or diplopia ENT ENT ED: Denies ear pain, rhinorrhea or sore throat Cardiovascular Cardiovascular: Denies chest pain, orthopnea, palpitations or racing heartbeat Respiratory/Chest Respiratory/Chest: Denies cough, dyspnea or orthopnea Gastrointestinal Gastrointestinal: Denies abdominal pain, diarrhea, nausea or vomiting Genitourinary Genitourinary ED: Denies dysuria, hematuria or urinary frequency Musculoskeletal Musculoskeletal: Reports other Details: Left hip left leg pain ; Denies arthralgias, back pain, myalgias or neck pain Integumentary Denies abscess or rash Neurologic Neurologic: Denies headache(s) or weakness Psychiatric Psychiatric: Denies anxiety, depression, suicidal ideation or suicidal thoughts Endocrine Endocrinology: Denies polydipsia, polyphagia or polyuria Allergic/Immunologic Allergic/Immunologic ED: Denies mouth swelling, tongue swelling or urticaria EXAM Physical Exam Const Vital Signs: 12/07/24 10:50 12/07/24 10:55 12/07/24 12:50 Temperature 97.9 F Temperature Source Oral Pulse Rate 120 H 100 Respiratory Rate 16 Respiratory Effort Normal Respiratory Depth Shallow Respiratory Pattern Normal Blood Pressure 145/94 H 147/93 H Blood Pressure Mean 111 111 Pulse Ox 99 100 Oxygen Delivery Method Room Air Room Air 12/07/24 14:00 12/07/24 14:15 Temperature 98.3 F Temperature Source Pulse Rate 92 92 Respiratory Rate 18 18 Respiratory Effort Respiratory Depth Respiratory Pattern Blood Pressure 151/81 H 151/81 H Blood Pressure Mean 104 104 Pulse Ox 96 96 Oxygen Delivery Method Positive well nourished and well developed General Appearance ED: well developed HEENT Reports normocephalic, head/scalp atraumatic and moist mucous membranes Eyes PERRL and EOMs intact bilaterally Neck no lymphadenopathy, supple and no JVD Resp normal respiratory effort and clear to auscultation bilaterally Cardio regular rate, regular rhythm and no murmurs GI normal to inspection, nondistended, normoactive bowel sounds and non-tender Palpation: soft Back/Spine no CVA tenderness and normal ROM Extremity Extremity Narrative: Patient reports tenderness to palpation over the posterior greater trochanter and buttock region. There is a hematoma noted over the lateral proximal left leg. She has chronic changes associated with venous stasis. General Extremety ED: Negative for edema General Extremity: Negative for edema Neuro oriented x3 and CN's II-XII intact bilaterally Sensorium / Orientation: alert Motor Exam: strength 5/5 throughout Psych Mood & Affect: anxious and tearful; Negative for depressed Skin no rashes or lesions noted and no wounds MDM MDM MDM Narrative Medical decision making narrative: Differential diagnosis includes hematoma leg fracture hip fracture pelvic fracture intracranial hemorrhage skull fracture UTI Basic blood work was obtained which showed hemoglobin 16.8 creatinine 1.23 BUN of 23 normal electrolytes glucose 141. There is no evidence of UTI. My independent interpretation of the plain films of the left tib-fib is no acute fracture. My independent interpretation of the pelvis and hip is no acute fracture. CT of the brain was obtained read by radiology reviewed by myself which is negative for acute. Patient was given some oxycodone. She is able to walk down the hallway with a walker. Family inquires about whether or not this was a stroke/TIA but I do not have any symptomology that would suggest that. I think the patient can be discharged home with some pain medications follow-up with primary care if not improving return if worsening History & Record Review Discussion w/independent historian: Patient, Family and Significant other Lab Data Attestation: I reviewed the patient's lab results. Labs: Laboratory Results - last 24 hr 12/07/24 12/07/24 11:35 12:14 WBC 7.9 RBC 5.39 Hgb 16.8 H Hct 50.7 H MCV 94.1 MCH 31.2 MCHC 33.1 RDW Std Deviation 45.1 H RDW Coeff of Chris 13.1 Plt Count 181 MPV 10.1 Immature Gran % (Auto) 0.300 Neut % (Auto) 78.9 H Lymph % (Auto) 12.7 L Thomas % (Auto) 6.9 Eos % (Auto) 0.9 Baso % (Auto) 0.3 Absolute Neuts (auto) 6.2 Absolute Lymphs (auto) 1.00 Nucleated RBC % 0 Sodium 142 Potassium 3.6 Chloride 108 H Carbon Dioxide 27.0 Anion Gap 7 BUN 23 H Creatinine 1.23 H Estim Creat Clear Calc 41.46 Est GFR (MDRD) Af Amer 54 L Est GFR (MDRD) Non-Af 45 L BUN/Creatinine Ratio 18.7 Glucose 141 H Calcium 9.4 Total Bilirubin 2.30 H Direct Bilirubin 0.57 H AST 15 ALT 21 Alkaline Phosphatase 101 Total Protein 7.0 Albumin 3.8 Globulin 3.2 Urine Color Yellow Urine Clarity Sl. Cloudy Urine pH 6.5 Ur Specific [place] 1.010 Urine Protein 100 H Urine Glucose (UA) Normal Urine Ketones Negative Urine Occult Blood 250 H Urine Nitrite Negative Urine Bilirubin Negative Urine Urobilinogen Normal Ur Leukocyte Esterase 500 H Urine RBC 25-50 SEEN Urine WBC 10-25 SEEN Ur Squamous Epith Cells 10-25 SEEN Ur Renal Epithelial Cell 0-5 SEEN Urine Bacteria 0 SEEN Urine Mucus 0 SEEN Urine Opiates Screen NEGATIVE Urine Methadone Screen NEGATIVE Ur Barbiturates Screen NEGATIVE Ur Phencyclidine Scrn NEGATIVE Ur Amphetamines Screen NEGATIVE MDMA (Ecstasy) Screen NEGATIVE U Benzodiazepines Scrn NEGATIVE Urine Cocaine Screen NEGATIVE U Cannabinoids Screen NEGATIVE Ur Drug Screen Comment Ethyl Alcohol 6.0 Radiography Diagnostic Testing: Clinical Impression(s) from Imaging Studies Brain CT 12/07/24 11:25 IMPRESSION: Chronic involutional changes of the brain. Electronically Signed: Jomar Iqbal MD at 11:58 EST Reading Location ID and State: [facility] / [place] , Service support , Hip/Pelvis X-Ray 12/07/24 11:55 IMPRESSION: Degenerative changes. No fracture seen. Electronically Signed: Jomar Iqbal MD at 13:00 EST , Tibia/Fibula X-Ray 12/07/24 11:55 IMPRESSION: Soft tissue swelling. Electronically Signed: Jomar Iqbal MD at 12:57 EST , Discharge Plan Triage Chief Complaint: Fall ED Provider: Barry Lorenzo Dx/Rx/DC Orders Clinical Impression: Fall, Hematoma of left lower leg, Contusion of hip, left Instructions: ED Soft Tissue Contusion, ED Hip Contusion Prescriptions: New oxycodone-acetaminophen 5-325 mg tablet 1 tab PO Q6H PRN PRN (Reason: Pain) 3 Days Qty: 12 0RF No Action levothyroxine 112 mcg tablet 112 mcg PO DAILY cholecalciferol (vitamin D3) 125 mcg (5,000 unit) capsule 125 mcg PO MOWEFR aspirin 325 mg tablet 162.5 mg PO DAILY cinnamon bark PO Rx Instructions: Adds to applesauce daily metoprolol succinate 25 mg tablet extended release 24 hr 12.5 mg PO MOWEFR 90 Days Qty: 20 3RF Rx Instructions: 12.5 mg PO daily on Tuesday, Tuesday, and Tuesday; Primary Care Provider: Kali Forrest Referrals: Kali Forrest MD [Primary Care Provider] - 3-5 Days Print Language: Gambian Disposition Disposition: Home, Self Care Discharge Date/Time: 12/07/24 14:30
[2024-12-07 11:43] LABS: Absolute Neutrophil Count 6.2 X10^3/uL (2.0-7.7); Basophil# 0.02 X10^3/uL; Basophil% 0.3 % (0-1); Eosinophil# 0.07 X10^3/uL; Eosinophils% 0.9 % (0-5); Hematocrit 50.7 % (37-47); Hemoglobin 16.8 g/dL (12.0-15.0); Lymphocyte % 12.7 % (19-41); Mean Corp Hgb Conc 33.1 g/dL (32-36); Mean Corpuscular Hgb 31.2 pg (27.0-32.0); Mean Corpuscular Volume 94.1 fL (81-99); Mean Platelet Vol. 10.1 fl (6.2-12.0); Monocyte# 0.54 X10^3/uL; Monocyte% 6.9 % (0-10); NRBC Flagged by Analyzer 0 % (0-5); Neutrophil # 6.22 X10^3/uL (2.7-7.7); Neutrophil % 78.9 % (47-70); Platelet Count 181 K/mm3 (150-450); RBC Distribution Width CV 13.1 % (11.6-14.6); RBC Distribution Width SD 45.1 fl (35.1-43.9); Red Blood Count 5.39 M/mm3 (4.2-5.4); White Blood Count 7.9 K/mm3 (4.4-11.0)
--- NOTE | 2024-12-07 11:55 | RAD_ITS ---
STUDY: X-RAY - PELVIS AND LEFT HIP REASON FOR EXAM: Female, 79 years old. Pain following injury. TECHNIQUE: 3 views of the pelvis and hip. COMPARISON: None. FINDINGS: There is a non-specific bowel gas pattern. Normal visualized soft tissue structures. There is narrowing with cortical sclerosis and osteophyte formation of the sacroiliac joint consistent with degenerative osteoarthritic changes. Normal bilateral superior and inferior pubic rami. There is narrowing with sclerosis of the pubic symphysis. Normal bilateral ischial tuberosities. Normal visualized femoral head. Normal acetabulum. There is moderate articular joint space narrowing of the hip. RAD/HIP, UNI W/ Pelvis 2-3 Views IMPRESSION: Degenerative changes. No fracture seen. Electronically Signed: Jomar Iqbal MD at 13:00 EST ,
--- NOTE | 2024-12-07 11:55 | RAD_ITS ---
STUDY: X-RAY - LEFT TIBIA AND FIBULA REASON FOR EXAM: Female, 79 years old. Pain following a fall. TECHNIQUE: 4 view(s) of the tibia and fibula were obtained. COMPARISON: None. FINDINGS: Normal visualized tibia. Normal visualized fibula. Degenerative changes of the knee joint. Soft tissue swelling. RAD/Tibia & Fibula 2 Views IMPRESSION: Soft tissue swelling. Electronically Signed: Jomar Iqbal MD at 12:57 EST ,
[2024-12-07 12:08] LABS: AST(SGOT) 15 U/L (15-37); Alanine Aminotransfer ALT/SGPT 21 U/L (13-56); Albumin, Serum 3.8 g/dL (3.2-5.0); Alkaline Phosphatase 101 U/L (45-117); Anion Gap 7 (5-15); BUN 23 mg/dL (7-18); BUN/Creat Ratio 18.7 RATIO (10-20); Bilirubin, Direct 0.57 mg/dL (0.00-0.30); Calcium,Total 9.4 mg/dL (8.5-10.1); Chloride 108 mmol/L (98-107); Creatinine, Serum 1.23 mg/dL (0.55-1.02); EST Glomerular Filtration Rate 45 mL/min (>60); Est Glom Filt Rate - Afr Amer 54 mL/min (>60); Estimated Creatinine Clearance 41.46 ml/min; Globulin 3.2 g/dL (2.2-4.2); Glucose 141 mg/dL (74-106); Potassium 3.6 mmol/L (3.5-5.1); Sodium Level 142 mmol/L (136-145)
[2024-12-07 12:23] LABS: Bacteria 0 SEEN /hpf (None Seen); Mucous, Urine 0 SEEN /hpf (<or=2+)
[2024-12-07 12:27] LABS: Color, Urine Yellow (Yellow); Glucose, Dipstick Normal (Normal); Ketone-Dipstick Negative (Negative); Leukocyte Esterase-Dipstick 500 /ul (Negative); Nitrite-Dipstick Negative (Negative); Occult Blood-Urine 250 /ul (Negative); Protein-Dipstick 100 mg/dl (Negative); Urine Bilirubin Dipstick Negative (Negative); Urine Clarity Sl. Cloudy (Clear); Urine Urobilinogen Normal (Normal); Urine pH 6.5 (5.0 - 8.0)
[2024-12-07 12:50] VITALS: BP 147/93; PULSE 100
[2024-12-07 12:51] LABS: Amphetamine Urine NEGATIVE (<1000 ng/mL); Barbiturate Urine VISTA NEGATIVE (< 200 ng/mL); Benzodiazepine Urine VISTA NEGATIVE (< 200 ng/mL); Cocaine Urine VISTA NEGATIVE (< 300 ng/mL); Ecstacy Urine VISTA NEGATIVE (< 500 ng/mL); Methadone Urine VISTA NEGATIVE (< 300 ng/mL); PCP Urine VISTA NEGATIVE (< 25 ng/mL); THC Urine VISTA NEGATIVE (< 50 ng/mL); Vista UDS pH Range 6
[2024-12-07 13:19] LABS: Red Blood Cells-Urine 25-50 SEEN /hpf (0-5); White Blood Cells 10-25 SEEN /hpf (0-5)
[2024-12-07 13:21] LABS: Squamous Epithelial Cells - UA 10-25 SEEN /hpf (5-10)
[2024-12-07 13:28] LABS: Renal Epithelial Cells 0-5 SEEN /hpf (0-5)
[2024-12-07 14:00] VITALS: BP 151/81; PULSE 92; RESP 18; O2SAT 96
[2024-12-07 14:15] VITALS: BP 151/81; PULSE 92; RESP 18; TEMP 36.8; O2SAT 96
[2024-12-07] MEDS: oxyCODONE 5 MG Tablet PO (14:19)
--- NOTE | 2024-12-07 14:26 | CHAPLAIN ---
Type of Pastoral Visit _x__ Initial Visit ___ Follow-up Visit ___ On-call Visit ___ General Patient Visit ___ Spiritual Assessment ___ Family Conference ___ Bereavement ___ Rapid Response ___ Code Blue ___ Other (describe below) Pastoral Care Referral From ___ Patient ___ Family ___ Nurse _x__ Physician ___ Drum Attendant ___ Grain Commodity Manager ___ Other (describe below) Sacrament/Intervention _x__ Active listening ___ Anointing ___ Mandaen ___ Bereavement ___ Communion ___ Rosaura exploration ___ ___ Life review _x__ Prayer ___ Reconciliation ___ Sacrament of Sick _x__ Supportive presence ___ Wedding ___ Other (describe below) Pastoral Comments during rounds in the ED the physician made a request to see this patient who had some odd behaviors; introduced self and role to patient and her who was at the bedside; pt is welcoming and expresses thanks for seeing her; while this photogrammetric stereo compiler did observe that the patient made unusual eye and mouth gestures, she was able to answer questions appropriately; patient indicated that she had fallen and was embarrassed that she couldn't get up and that her was not capable of getting her up off the floor; patient admitted that she is a large woman; spouse was asked about what was normal behavior for the patient and he indicated that she was not her normal self today; pt did request a prayer and afterward she said thank you and I needed that;
== END 2024-12-07 14:30 | disposition home or self-care (01) ==
PROVIDERS: Emergency Provider Emergency Medicine; PCP Family Medicine; Visit Provider Emergency Medicine
DX: S70.02XA Contusion of left hip, initial encounter (principal); E11.9 Type 2 diabetes mellitus without complications; W19.XXXA Unspecified fall, initial encounter
CPT/HCPCS: 70450; 73502; 73590; 80048; 80076; 80307; 81001; 82077; 85025; 99285; A4216

== ENCOUNTER 2024-12-07 19:59 | Emergency (ER) | payer MEDICARE, SELFPAY ==
[2024-12-07] VITALS (8 sets, daily range): BP systolic 122–139; BP diastolic 76–100; PULSE 92–108; RESP 13–18; TEMP 36.5–36.6; O2SAT 95–98; BMI 39.1
--- NOTE | 2024-12-07 20:02 | EKG12_ITS ---
Test Reason : STROKE Blood Pressure : */* mmHG Vent. Rate : 99 BPM Atrial Rate : * BPM P-R Int : * ms QRS Dur : 86 ms QT Int : 362 ms P-R-T Axes : * -19 -6 degrees QTcB Int : 464 ms Atrial fibrillation with premature ventricular or aberrantly conducted complexes Septal infarct (cited on or before 05-Nov-2018) Abnormal ECG Confirmed by ROLAND MORELAND, JUAN CARLOS ([id number]), editor in chief GIGI BARNES ([id number]) on 12/11/2024 6:07:14 AM Referred By: Confirmed By: JUAN CARLOS WATKINS MD
--- NOTE | 2024-12-07 20:02 | CT_ITS ---
We are attempting to reach an attending provider to discuss findings. An addendum with communication details will be sent when the communication is complete. INDICATION: Neuro deficit, acute, stroke suspected EXAMINATION: CT BRAIN - CT Head Stroke Protocol W/O Contrast Injection TECHNIQUE: Multiple axial images were obtained of the head without intravenous contrast. The protocol utilizes one or more of the following dose reduction techniques: automated exposure control, adjustment of mA and/or kV according to patient size,and/or use of iterative reconstruction technique. IV Contrast dosage and agent: None. RADIATION DOSAGE (If Supplied By Facility): CTDIvol = ( ) mGy, DLP = ( 812.98 ) mGycm COMPARISON: CT of the brain December 07, 2024 11:47 AM FINDINGS: BRAIN PARENCHYMA: No intra- or extra-axial hemorrhage. No evidence of acute infarct. No intracranial mass or mass effect. Moderate periventricular white matter ischemic changes. There is subtle low-attenuation within the right temporal lobe possibly representing early ischemic changes interface. Posterior fossa structures are unremarkable. CSF SPACES: Mild atrophy. No hydrocephalus. Basal cisterns are patent. CALVARIUM, SKULL BASE, PARANASAL SINUSES AND MASTOID AIR CELLS: Clear. No discrete lytic or blastic abnormalities. ORBITS: Postsurgical changes of the orbits. Calcific plaquing cavernous carotids There is increased attenuation of the right middle cerebral artery possibly representing thrombosis. CT/STROKE Brain/Head without Cont IMPRESSION: Mild atrophy and moderate periventricular white matter ischemic changes. No acute bleed. There are findings suggestive of thrombosis of the right middle cerebral artery and possible early infarct in the right temporal lobe. MRI/MRA would be useful for further evaluation Electronically Signed: Jose Marie MD at 20:23 EST ,
--- NOTE | 2024-12-07 20:03 | CT_ITS ---
We are attempting to reach an attending provider to discuss findings. An addendum with communication details will be sent when the communication is complete. STUDY: CTA HEAD AND NECK WITH CONTRAST REASON FOR EXAM: Female, 79 years old. Neuro deficit, acute, stroke suspected RADIATION DOSAGE (If Supplied By Facility): CTDIvol = ( 17.80 ) mGy, DLP = ( 675.88 ) mGycm TECHNIQUE: CT angiography was performed with a multi-detector CT scanner. Data acquisition was obtained from the skull base through the vertex following intravenous administration of IV 100mL [id number]-[id number]. MIP images were reconstructed from the axial data set. Post-processing of the angiographic images was performed, with multiplanar reformation and 3D reconstruction. Individualized dose optimization techniques were used for this CT. COMPARISON: No relevant priors. FINDINGS: Normal bilateral petrous carotid arteries. Normal right cavernous carotid artery with a normal supraclinoid bifurcation. Normal left cavernous carotid artery with a normal supraclinoid bifurcation. Normal right A1 segments of the anterior cerebral artery. Normal left A1 segments of the anterior cerebral artery. Normal intact anterior communicating artery (ACOM). Normal bilateral A2 segments of the anterior cerebral arteries. Normal right M1 segment of the middle cerebral arteries, with a normal M1 bifurcation. There is occlusion of the distal M2 segment with nonvisualization of the [place] branch Normal left M1 and M2 segments of the middle cerebral arteries, with a normal M1 bifurcation. Right posterior communicating artery not visualized consistent with normal variant). Normal left posterior communicating artery (PCOM). Normal bilateral vertebral arteries. Normal basilar artery with a normal basilar bifurcation. The visualized bilateral superior cerebellar (SCA) arteries are normal. Normal right posterior inferior cerebral artery.. Nonvisualized P1 segment of left posterior cerebral artery with P2 and P3 segments supplied by left posterior communicating artery which is normal variant There is no demonstrated aneurysm of the [place]. There is diffuse low-attenuation in the right temporal lobe consistent with evolving infarct AORTIC ARCH: Normal visualized aortic arch. Normal origins of the brachiocephalic, left common carotid, and left subclavian arteries. RIGHT CAROTID ARTERIES: Normal right common carotid artery (CCA). Mild calcific plaquing of the right common carotid bulb. Normal origin of the right internal carotid (ICA) artery without a hemodynamically significant stenosis. Normal visualized cervical portion of the right internal carotid artery. Normal origin of the right external carotid artery (ECA). LEFT CAROTID ARTERIES: Normal left common carotid artery (CCA). Mild calcific plaquing of the left common carotid bulb. Normal origin of the left internal carotid (ICA) artery without a hemodynamically significant stenosis. Normal visualized cervical portion of the left internal carotid artery. Normal origin of the left external carotid artery (ECA). VERTEBRAL ARTERIES: Normal bilateral vertebral arteries. 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 Mild atherosclerotic changes of the cervical carotids Electronically Signed: Jose Marie MD at 20:33 EST ,
--- NOTE | 2024-12-07 20:04 | ED.VIS.STROK ---
HPI History of Present Illness Chief Complaint: Stroke Alert Informant: patient and EMS Narrative Narrative: Patient is an 79-year-old female presenting for left-sided deficits concern for stroke. Patient was seen in our ER earlier today for falls and injuries. She has a head CT and labs and ultimately discharged home. Patent ambulates with a walker at baseline. She lives with her . She has a history of proximal atrial fibrillation, hypertension, hyperlipidemia, bilateral lower extremity edema and primary hyperparathyroidism. She is at home with her . EMS reports that she woke up from a nap around 7:30 PM and she is noticed to have slurred speech and left-sided facial droop was not moving her left side as much. They were called. Stroke alert was called and route. Initial last known well was 6:30 PM when the patient reportedly went down to take a nap. Patient has no complaints at this time. She is evaluated medially upon arrival. [facility] Medical History Wears dentures Wears glasses Diabetes Walker as ambulation aid Non-smoker Shortness of breath on exertion History of edema Cardiology follow-up encounter Vision loss of right eye Vision loss of left eye Cataract Fibromyalgia Primary hyperparathyroidism H/O radioactive iodine thyroid ablation Pure hypercholesterolemia Fatigue Essential (primary) hypertension Paroxysmal atrial fibrillation Hematuria Palpitations Hyperparathyroidism Arthritis Atrial fibrillation with RVR Hypothyroidism Morbid obesity with BMI of 40.0-44.9, adult Home Medications ?Medication ?Instructions ?Recorded ?Last Taken ?Type levothyroxine 112 mcg tablet 112 mcg PO DAILY 10/29/20 Unknown History metoprolol succinate 25 mg 12.5 mg (1/2 x 25 mg) PO MOWEFR 90 11/15/23 Unknown Rx tablet,extended release 24 hr days #20 tabs aspirin 325 mg tablet 162.5 mg PO DAILY 06/14/24 Unknown History cholecalciferol (vitamin D3) 125 125 mcg PO MOWEFR 06/14/24 Unknown History mcg (5,000 unit) capsule cinnamon bark PO 06/14/24 Unknown History oxycodone-acetaminophen 5 mg-325 1 tab PO Q6H PRN PRN Pain 3 days 12/07/24 Unknown Rx mg tablet #12 TABLETS Allergy/AdvReac Type Severity Reaction Status Date / Time Iodinated Contrast Media Allergy Severe Chest Verified 12/07/24 20:44 tightness NSAIDS (Non-Steroidal Allergy Intermediate Other Verified 12/07/24 20:44 Anti-Inflamma tramadol Allergy Unknown PT UNSURE Verified 12/07/24 20:44 OF REACTION Penicillins Allergy Hives Verified 12/07/24 20:44 lisinopril AdvReac Unknown PT UNSURE Verified 12/07/24 20:44 OF REACTION albuterol AdvReac Anaphylaxis Verified 12/07/24 20:44 Family History Brother Hypertension Diabetes Sister Diabetes Hypertension Other Arthritis Cancer Thyroid disorder Surgical History S/P parathyroidectomy History of section Social History Smoking Status: Never smoker alcohol intake: never details: Rare substance use type: does not use what type of physical activity do you participate in: other ROS ROS ED Constitutional Constitutional ED: Denies chills or fever(s) Eyes Eyes: Reports change in vision Cardiovascular Cardiovascular: Denies chest pain Respiratory/Chest Respiratory/Chest: Denies cough or dyspnea Gastrointestinal Gastrointestinal: Denies nausea or vomiting Musculoskeletal Musculoskeletal: Denies arthralgias or myalgias Neurologic Neurologic: Reports paresthesias LUE and LLE and weakness Psychiatric Psychiatric: Denies anxiety or depression Hematologic/Lymphatic Hematologic/Lymphatic: Denies easy bleeding or easy bruising EXAM Physical Exam Const Vital Signs: 12/07/24 20:02 12/07/24 20:02 12/07/24 20:02 Temperature 97.7 F L Temperature Source Oral Pulse Rate 94 108 H Respiratory Rate 15 Blood Pressure 139/81 H 128/78 H Blood Pressure Mean 100 94 Pulse Ox 97 96 98 Oxygen Delivery Method Room Air Room Air Room Air 12/07/24 20:05 12/07/24 20:32 12/07/24 21:02 Temperature 98 F Temperature Source Oral Pulse Rate 97 99 Respiratory Rate 13 18 Blood Pressure 134/82 H 133/76 H Blood Pressure Mean 99 95 Pulse Ox 97 95 Oxygen Delivery Method Room Air Room Air 12/07/24 21:09 12/07/24 21:30 12/07/24 21:55 Temperature 98 F Temperature Source Pulse Rate 99 98 Respiratory Rate 18 15 Blood Pressure 133/76 H 122/100 H 130/82 H Blood Pressure Mean 95 107 98 Pulse Ox 95 97 Oxygen Delivery Method Room Air 12/07/24 22:00 Temperature Temperature Source Pulse Rate 92 Respiratory Rate 16 Blood Pressure 127/79 H Blood Pressure Mean 95 Pulse Ox 95 Oxygen Delivery Method Room Air Positive well nourished and well developed General Appearance ED: well developed and NAD HEENT Reports moist mucous membranes Eyes PERRL Eyes Narrative: Visual field cut to the left bilaterally (bilateral left hemianopsia). Initially has difficulty even looking past midline to the left. Neck supple and no JVD Chest Wall inspection of chest normal Resp normal respiratory effort Cardio Rate: regular rate Rhythm: abnormal rhythm irregularly irregular GI normal to inspection, nondistended, normoactive bowel sounds and soft to palpation Extremity Extremity Narrative: Chronic. Edema to the lower extremities. No deformity. Compartments are soft to the lower extremities. General Extremety ED: Yes edema General Extremity: edema Neuro oriented x3 Neuro Narrative: Patient has significant sensory loss of the left side of the body is not aware when I am touching the left side. She has a left facial droop. Some slight drift of the left upper extremity. No dysarthria or expressive aphasia appreciated. She does have drift of the left lower extremity. Psych mental status grossly normal Skin Skin Narrative: Ecchymosis to the left lower leg NIHSS NIHSS Initial: 1a Level of Consciousness: 0 1b LOC Questions (Score 2 if aphasic/stupor): 0 1c LOC Commands (Only score 1st attempt): 0 2 Best Gaze (If aphasic, use reflexive mvmts.): 2 3 Visual: 3 4 Facial Palsy: 2 5 Motor Arm Right (UN = amputation/fusion): 0 5 Motor Arm Left: 1 6 Motor Leg Right: 0 6 Motor Leg Left: 2 7 Limb ataxia (Only + if out of proportion): 0 8 Sensory (Aphasia/stupor=0 or 1, coma=2): 2 9 Best Language: 0 10 Dysarthria (mute, coma=2, intubated=UN): 0 11 Extinction and Inattention (only scored if +): 2 Total Score: 14 MDM MDM MDM Narrative Medical decision making narrative: Patient evaluated for acute onset of neurologic symptoms. Stroke alert was called and route. Upon arrival patient appears to be having what looks to be an MCA stroke. She sent over to CT after brief neurologic exam. She has a reported history of iodinated contrast media allergy causing chest tightness. At this time given my suspicion for large stroke and possible large vessel occlusion will give contrast and evaluate for further reaction. CT of the brain does not show any acute process. On return from radiology for pain. She is evaluated by telestroke, Dr. Gleason. My initial concern is that her initial last known well was within the window of TNK but she had a fall with obvious contusions earlier today. Concern for further bleeding. Differentials include intracranial hemorrhage even though she had CT of the brain that was negative earlier today. CT of the brain does not show any acute hemorrhage but does show findings suggestive of thrombosis of the right middle cerebral artery possible early infarct of the right temporal lobe. This is consistent with the patient's clinical exam. Patient evaluated by teleneurology. After further discussion with the patient's and help his daughter it appears that her last known well was actually at 1600 and putting the patient outside of the window for TNK. However she does have signs of embolic disease of the right middle cerebral artery and would potentially be a candidate for clot retrieval. Will be transferred to [facility] for further neurosurgical evaluation. Family understands the gravity of her symptoms right now. It sounds like patient got home from the ER and then they had lunch. Around 330 or 4 PM she was trying to eat a sandwich and drink and kept missing her mouth or not noticing that food was feeling underclothes. We will presume that is when her symptoms actually started. After that she went to take a nap and had more profound symptoms when she woke up from her nap. EKG does show atrial fibrillation making embolic stroke more likely as well. History & Record Review Additional record(s) reviewed:: Prior ED visit Lab Data Attestation: I reviewed the patient's lab results. Labs: Laboratory Results - last 24 hr 12/07/24 20:05 WBC 8.9 RBC 5.00 Hgb 15.9 H Hct 47.5 H MCV 95.0 MCH 31.8 MCHC 33.5 RDW Std Deviation 46.0 H RDW Coeff of Chris 13.2 Plt Count 193 MPV 9.8 Immature Gran % (Auto) 0.300 Neut % (Auto) 82.7 H Lymph % (Auto) 10.4 L Owen % (Auto) 6.0 Eos % (Auto) 0.3 Baso % (Auto) 0.3 Absolute Neuts (auto) 7.4 Absolute Lymphs (auto) 0.93 Nucleated RBC % 0 PT 14.6 INR 1.1 APTT 25.7 Sodium 143 Potassium 4.2 Chloride 108 H Carbon Dioxide 30.0 Anion Gap 5 BUN 28 H Creatinine 1.36 H Estim Creat Clear Calc 35.27 Est GFR (MDRD) Af Amer 48 L Est GFR (MDRD) Non-Af 40 L BUN/Creatinine Ratio 20.6 H Glucose 200 H Calcium 9.4 Troponin I High Sens 12 Radiography Diagnostic Testing: Clinical Impression(s) from Imaging Studies Brain CT 12/07/24 20:02 IMPRESSION: Mild atrophy and moderate periventricular white matter ischemic changes. No acute bleed. There are findings suggestive of thrombosis of the right middle cerebral artery and possible early infarct in the right temporal lobe. MRI/MRA would be useful for further evaluation Electronically Signed: Jose Marie MD at 20:23 EST Reading Location ID and State: [facility] / [place] Tel [phone], Service support , ADDENDUM: 12/07/242035 IMPRESSION: Mild atrophy and moderate periventricular white matter ischemic changes. No acute bleed. There are findings suggestive of thrombosis of the right middle cerebral artery and possible early infarct in the right temporal lobe. MRI/MRA would be useful for further evaluation N.B. : The above Results were Read Back by Jose Marie MD to Liliya Liang DO, and understanding confirmed on 12/07/2024 20:29:13 (ET). Electronically Signed: Jose Marie MD at 20:23 EST , Head/Neck CTA 12/07/24 20:03 IMPRESSION: Occluded M2 segment of the right middle cerebral artery and major sylvian vessel.. Mild atherosclerotic changes of the cervical carotids Electronically Signed: Jose Marie MD at 20:33 EST , ADDENDUM: 12/07/242045 IMPRESSION: Occluded M2 segment of the right middle cerebral artery and major sylvian vessel.. Mild atherosclerotic changes of the cervical carotids N.B. : The above Results were Read Back by Jose Marie MD to Liliya Liang DO, and understanding confirmed on 12/07/2024 20:39:25 (ET). Electronically Signed: Jose Marie MD at 20:33 EST , Chest X-Ray 12/07/24 20:49 IMPRESSION: Cardiomegaly. No acute cardiopulmonary pathology Electronically Signed: Jose Marie MD at 21:15 EST , Rhythm Strip Rhythm Strip: A-fib Rate: 99 Ectopy: None EKG Initial EKG: Attestation: I personally reviewed and interpreted this EKG as follows: Interpretation: Atrial Fibrillation Comments: atrial fibrillation at a rate by 9 bpm with PVCs Normal axis Normal intervals Normal ST segments Management Discussion w/another healthcare provider: J2Ee Programmer Critical Care Time Critical Care Time: Yes Critical care time (excluding procedures): 30-74 minutes (47), Discussing w/Patient &/or Family/Clinical Programmer, Discussing w/Consultants and Arranging Admission or Transfer Discharge Plan Triage Chief Complaint: Stroke Alert ED Provider: Liliya Liang Dx/Rx/DC Orders Clinical Impression: Acute ischemic right MCA stroke, Paroxysmal atrial fibrillation Prescriptions: No Action levothyroxine 112 mcg tablet 112 mcg PO DAILY cholecalciferol (vitamin D3) 125 mcg (5,000 unit) capsule 125 mcg PO MOWEFR aspirin 325 mg tablet 162.5 mg PO DAILY cinnamon bark PO Rx Instructions: Adds to applesauce daily oxycodone-acetaminophen 5-325 mg tablet 1 tab PO Q6H PRN PRN (Reason: Pain) 3 Days Qty: 12 0RF metoprolol succinate 25 mg tablet extended release 24 hr 12.5 mg PO MOWEFR 90 Days Qty: 20 3RF Rx Instructions: 12.5 mg PO daily on Tuesday, Tuesday, and Tuesday; Primary Care Provider: Kali Forrest Referrals: Kali Forrest MD [Primary Care Provider] - Print Language: [place] Citizen Disposition Disposition: Acute Care Hospital Discharge Location: [facility] Discharge Date/Time: 12/07/24 22:18
--- NOTE | 2024-12-07 20:13 | ED.RN ---
Patient arrives back in room from CT
[2024-12-07 20:14] LABS: Absolute Lymphocyte Count 0.93 X10^3/uL (0.83-4.51); Absolute Neutrophil Count 7.4 X10^3/uL (2.0-7.7); Basophil# 0.03 X10^3/uL; Basophil% 0.3 % (0-1); Eosinophil# 0.03 X10^3/uL; Eosinophils% 0.3 % (0-5); Hematocrit 47.5 % (37-47); Hemoglobin 15.9 g/dL (12.0-15.0); Lymphocyte # 0.93 X10^3/ul (0.83-4.51); Lymphocyte % 10.4 % (19-41); Mean Corp Hgb Conc 33.5 g/dL (32-36); Mean Corpuscular Hgb 31.8 pg (27.0-32.0); Mean Platelet Vol. 9.8 fl (6.2-12.0); Monocyte# 0.54 X10^3/uL; NRBC Flagged by Analyzer 0 % (0-5); Neutrophil # 7.38 X10^3/uL (2.7-7.7); Neutrophil % 82.7 % (47-70); Platelet Count 193 K/mm3 (150-450); RBC Distribution Width CV 13.2 % (11.6-14.6); White Blood Count 8.9 K/mm3 (4.4-11.0)
[2024-12-07 20:22] LABS: International Normalized Ratio 1.1; Prothrombin Time (Protime)PT. 14.6 SECONDS (11.7-14.9)
[2024-12-07 20:28] LABS: Partial Thromboplast Time 25.7 Seconds (24.1-36.2)
--- NOTE | 2024-12-07 20:28 | ED.RN ---
Patient arrived at 1958, patient taken to CT on squad cot. [facility] called initially at 2001. Patient arrived back to room from CT at 2011, [facility] contacted again at this time to notify that patient was back in room. Neurologist beamed in on stroke cart at 2018, Dr. Liang bedside with patient's and daughter. Family states at this time that LKW was 1600.
[2024-12-07 20:32] LABS: Anion Gap 5 (5-15); BUN 28 mg/dL (7-18); BUN/Creat Ratio 20.6 RATIO (10-20); Calcium,Total 9.4 mg/dL (8.5-10.1); Chloride 108 mmol/L (98-107); Creatinine, Serum 1.36 mg/dL (0.55-1.02); EST Glomerular Filtration Rate 40 mL/min (>60); Est Glom Filt Rate - Afr Amer 48 mL/min (>60); Estimated Creatinine Clearance 35.27 ml/min; Glucose 200 mg/dL (74-106); Potassium 4.2 mmol/L (3.5-5.1); Sodium Level 143 mmol/L (136-145); Troponin-I HS 12 pg/mL (3.0-54.0)
--- NOTE | 2024-12-07 20:49 | RAD_ITS ---
STUDY: X-RAY CHEST REASON FOR EXAM: Female, 79 years old. Neuro deficit, acute, stroke suspected TECHNIQUE: AP portable COMPARISON: May 19, 2023. FINDINGS: The lungs are clear and expanded. There is no demonstrated pleural abnormality. Heart is enlarged. Normal mediastinum and royce. Normal visualized pulmonary arteries. Normal visualized aortic arch and descending thoracic aorta. Dorsal spine and shoulders demonstrate degenerative change. Normal visualized ribs, and clavicles.. There is no demonstrated abnormality of the visualized soft tissue structures of the upper abdomen. RAD/Chest 1 View IMPRESSION: Cardiomegaly. No acute cardiopulmonary pathology Electronically Signed: Jose Marie MD at 21:15 EST ,
--- NOTE | 2024-12-07 21:00 | CM.ED ---
Social Work SW met with patient, patients and patients daughter. Patients daughter stated that patient did not initially think she needed to come back to the ER, however her called the squad to bring her in. Patients daughter and patients both stated that they are very worried about patient. and daughter state they are comfortable driving to [facility] this evening to be with patient. Emotional support provided. No further needs identified at this time. Sarah Vasquez, CATAPULT AND ARRESTING GEAR OFFICER, GLASS CLEANING MACHINE TENDER
== END 2024-12-07 22:18 | disposition short-term general hospital (02) ==
PROVIDERS: Emergency Provider Emergency Medicine; PCP Family Medicine; Visit Provider Emergency Medicine
DX: I63.311 Cerebral infarction due to thrombosis of right middle cerebral artery (principal); I48.0 Paroxysmal atrial fibrillation; E11.9 Type 2 diabetes mellitus without complications; S70.02XA Contusion of left hip, initial encounter; X58.XXXA Exposure to other specified factors, initial encounter
CPT/HCPCS: 70450; 70496; 70498; 71045; 73502; 73590; 80048; 80076; 80307; 81001; 82077; 84484; 85025; 85610; 85730; 93005; 99285; Q9967; A4216

== ENCOUNTER → 2025-03-27 | Outpatient (CLI) | payer MEDICARE, SELFPAY ==
[2025-03-27 15:21] LABS: Absolute Lymphocyte Count 1.34 X10^3/uL (0.83-4.51); Absolute Neutrophil Count 3.8 X10^3/uL (2.0-7.7); Basophil# 0.03 X10^3/uL; Basophil% 0.5 % (0-1); Eosinophil# 0.11 X10^3/uL; Eosinophils% 1.9 % (0-5); Hematocrit 50.3 % (37-47); Hemoglobin 16.5 g/dL (12.0-15.0); Lymphocyte # 1.34 X10^3/ul (0.83-4.51); Lymphocyte % 22.6 % (19-41); Mean Corp Hgb Conc 32.8 g/dL (32-36); Mean Corpuscular Hgb 31.5 pg (27.0-32.0); Mean Platelet Vol. 10.7 fl (6.2-12.0); Monocyte% 10.1 % (0-10); NRBC Flagged by Analyzer 0 % (0-5); Neutrophil # 3.84 X10^3/uL (2.7-7.7); Neutrophil % 64.6 % (47-70); Platelet Count 198 K/mm3 (150-450); RBC Distribution Width CV 13.7 % (11.6-14.6); RBC Distribution Width SD 48.4 fl (35.1-43.9); Red Blood Count 5.24 M/mm3 (4.2-5.4); White Blood Count 5.9 K/mm3 (4.4-11.0)
[2025-03-27 16:45] LABS: ALB/GLOB Ratio 1.8 RATIO (0.9-2.4); AST(SGOT) 26 U/L (<=31); Alanine Aminotransfer ALT/SGPT 14 U/L (<=34); Albumin, Serum 4.3 g/dL (3.4-4.8); Alkaline Phosphatase 120 U/L (35-104); Anion Gap 12 (5-15); BUN 14 mg/dL (4-19); BUN/Creat Ratio 17.6 RATIO (10-20); Calcium,Total 9.6 mg/dL (7.6-11.0); Carbon Dioxide 25.7 mmol/L (21.0-32.0); Chloride 104 mmol/L (98-108); Creatinine, Serum 0.81 mg/dL (0.70-1.20); EST Glomerular Filtration Rate 73 (>60); Globulin 2.4 g/dL (2.2-4.2); Glucose 114 mg/dL (70-99); Potassium 3.7 mmol/L (3.3-5.1); Protein, Total 6.6 g/dL (5.9-8.4); Sodium Level 141 mmol/L (133-145); Thyroid Stim Hormone (TSH) 0.154 uIU/mL (0.300-4.200); Total Bilirubin 2.66 mg/dL (0.00-1.30)
== END | disposition home or self-care (01) ==
LOC: LAB 14:11
PROVIDERS: PCP Family Medicine; Referring Provider Nurse Practitioner Family; Visit Provider Nurse Practitioner Family
DX: E03.9 Hypothyroidism, unspecified (principal); I48.0 Paroxysmal atrial fibrillation; R53.83 Other fatigue; I10 Essential (primary) hypertension
CPT/HCPCS: 36415; 80053; 84439; 84443; 85025